=== PATIENT | male | born 1960 | race Caucasian/White ===

== ENCOUNTER 2024-07-17 18:48 | Inpatient (IN) | payer MEDICARE, SELFPAY ==
[2024-07-17] VITALS (35 sets, daily range): BP systolic 132–180; BP diastolic 81–120; PULSE 97–129; RESP 16–26; TEMP 36.7; O2SAT 92–100
--- NOTE | ~2024-07-17 | CT_ITS ---
CT abdomen pelvis wo con Ordering provider: Kimberlee Tomlin MD History: 64 years Male with . acute renal failure . Comparison: None. Technique: CT abdomen and pelvis without IV and without oral contrast. Automated exposure control and iterative reconstruction technique were employed. The dose-length product was 410.77 mGy-cm. Findings: VISUALIZED LOWER CHEST: Groundglass appearance is seen in the middle lobe with minimal changes in the medial aspect of the right lower lobe and also in the left lower lobe suggestive of pneumonia. UPPER ABDOMINAL ORGANS: Liver: Normal. Gallbladder: Cholelithiasis Spleen: Normal. Stomach/duodenum: Small sliding hiatus hernia. The Pancreas: Normal. Adrenals: Normal. Kidneys: Bilateral hydronephrotic changes with no stones in the ureters. Tiny stones seen in the righ t kidney midpole. Small Cyst is seen in the right kidney midpole posteriorly. Small cysts in the left kidney upper pole. PELVIC ORGANS: The bladder is overdistended. Stone is seen in the posterior urinary bladder measures 1 x 0.7 cm. BOWEL AND MESENTERY: Colon: Contrast is seen in the large bowel. No evidence of diverticulitis. The appendix is not demons trated. Small Bowel: Normal. No obstruction. Peritoneum/mesentery: No free air or free fluid. No mesenteric lymphadenopathy. RETROPERITONEUM: Mild atheromatous disease of the abdominal aorta. No retroperitoneal lymphadenopat hy. MUSCULOSKELETAL: Superficial soft tissues: The superficial soft tissues are normal. Bones: Age appropriate degenerative changes of the spine. Sclerotic lesion seen in the left acetabulu m. Follow-up advised. IMPRESSION: 1. Grossly distended urinary bladder with urinary bladder stone. 2. Enlarged prostate. 3. Bilateral moderate hydroureter and hydronephrotic changes. 4. Tiny stone in the right kidney midpole. Bilateral renal cysts. 5. Cholelithiasis. 6. No evidence of appendicitis, diverticulitis or intestinal obstruction. 7. Ground glass appearance suggestive of pneumonia in the middle lobe and both lower lobes. Follow-u p advised. Reviewed, dictated and finalized at location A. IMPRESSION: 1. Grossly distended urinary bladder with urinary bladder stone. 2. Enlarged prostate. 3. Bilateral moderate hydroureter and hydronephrotic changes. 4. Tiny stone in the right kidney midpole. Bilateral renal cysts. 5. Cholelithiasis. 6. No evidence of appendicitis, diverticulitis or intestinal obstruction. 7. Ground glass appearance suggestive of pneumonia in the middle lobe and both lower lobes. Follow-up advised.
--- NOTE | ~2024-07-17 | US_ITS ---
EXAMINATION: US renal BI DATE: 07/19/2024 13:56 INDICATION: Acute renal failure TECHNIQUE: Multiple ultrasound grayscale images of the kidneys were obtained. COMPARISON: CT dated 07/17/2024 FINDINGS: The right kidney measures 11.9 x 5.7 x 6.2 cm. The left kidney measures 13.7 x 6.9 x 7.0 cm. The kidn eys demonstrate normal echogenicity. There are bilateral anechoic renal cysts measuring 2.1 cm the ri ght kidney and 2.2 cm at the left kidney. There is no hydronephrosis in either kidney. No stones fátima ntified. The bladder is decompressed with a Ortega catheter in place which limits evaluation.. IMPRESSION: 1. Approximately 2 cm bilateral renal cysts. Otherwise normal kidneys with resolution of prior bilat eral hydronephrosis likely related to interval Ortega catheter placement with decompression of the pre viously distended bladder. Reviewed, dictated and finalized at location A. IMPRESSION: 1. Approximately 2 cm bilateral renal cysts. Otherwise normal kidneys with res olution of prior bilateral hydronephrosis likely related to interval Ortega cath eter placement with decompression of the previously distended bladder.
--- NOTE | ~2024-07-17 | XR_ITS ---
CHEST RADIOGRAPH CLINICAL HISTORY: lungs and heart . COMPARISON: 09/09/2018 TECHNIQUE: Single portable view of the chest. FINDINGS The cardiomediastinal silhouette is unremarkable. The lungs are clear. IMPRESSION: No focal infiltrate or effusion. Reviewed, dictated and finalized at location A.
--- OUTSIDE RECORDS SUMMARY | 2024-07-17 18:51 | XMS_ITS | Clinical Summary ---
Author Organization [facility] Address [address] [place] [address] Phone Care Team Providers Care Clinical Services Consultant Name Role Phone Unavailable Primary Care Provider Unavailabl e Medications aspirin (KONRAD CHEWABLE) 81 mg Tablet, Chewable Take 81 mg by mouth daily. Active tamsulosin (FLOMAX) 0.4 mg capsule Take 1 Capsule (0.4 mg) by mouth daily after supper. 30 Capsule 05/07/2022 3:50 PM CDT 3 Active Saccharomyces boulardii 250 mg capsule Florastor 250 mg capsule TK 1 C PO BID Active atorvastatin (LIPITOR) 40 mg tablet Take 1 Tablet (40 mg) by mouth daily. 100 Tablet 3 05/09/2022 7:23 PM CDT 3 Active metFORMIN (GLUCOPHAGE XR) 500 mg Extended Release 24 hour tablet Take 1 Tablet (500 mg) by mouth 2 times daily with meals. 200 Tablet 3 05/09/2022 7:23 PM CDT 3 Active busPIRone (BUSPAR) 5 mg tablet Take 1 Tablet (5 mg) by mouth 3 times daily. 15 Tablet 05/09/2022 7:23 PM CDT 3 Active gentamicin (GARAMYCIN) 0.1 % Cream Apply once daily to affected area. 30 Gram 3 07/24/2022 2:14 PM CDT 3 Active becaplermin (Regranex) 0.01 % Gel Apply daily to wound as directed 15 Gram 3 3 Active mupirocin (BACTROBAN) 2 % Ointment Apply enough to cover affected area topically daily. 22 Gram 1 07/13/2023 4:32 PM CDT 4 Active cefUROXime axetil (CEFTIN) 500 mg tablet Take 1 Tablet (500 mg) by mouth every 12 hours for 7 days. TAKE WITH FOOD. 14 Tablet 06/17/2024 10:31 AM CDT 5 06/25/19 25 terazosin (HYTRIN) 1 mg capsule Take 1 Capsule (1 mg) by mouth daily at bedtime for 10 days. 10 Capsule 06/24/2024 6:31 PM CDT 5 07/05/19 25 Active Problems Problem Noted Date Diagnosed Date MSSA (methicillin susceptibl e Staphylococcus aureus) infection 05/27/2022 Acute urinary retention 05/09/2022 Status post amputation of great toe 05/09/2022 Pyogenic arthritis of foot 05/06/2022 Charcot foot due to diabetes mellitus 04/30/2022 Microcytic hypochromic anemia 03/26/2019 Diabetic infection of left foot 09/10/2018 Type 2 diabetes mellitus with diabetic foot infe ction 09/10/2018 Anxiety state 10/13/2016 Resolved Problems Problem Noted Date Diagnosed Date Resolved Date Foot abscess, left 05/06/2022 Leukocytosis (leucocytosis) 05/01/2022 05/27/2022 Sepsis due to cellulitis 04/30/2022 Cellulitis of left lower extremity 03/26/2019 05/27/2022 Cellulitis of left foot 03/25/2019 04/0 05/2022 Osteomyelitis of left foot 09/10/2018 0 03/26/2019 Probable sepsis 04/30/2022 Staphylococcus aureus bacteremia 04/30/2022 Sepsis without acute organ dysfunction 04/30/2022 Pyogenic inflammation of bone 04/30/2022 Family History Medical History Relation Name Comments Diabetes Brother Relation Name Status Comments Brother Social History Tobacco Use Types Packs/Day Years Used Date Smoking Tobacco: Never Smokeless Tobacco: Never Tobacco Cessation:Counseling Given: Not Answered Alcohol Use Standard Drinks/Week Comments Yes 0 (1 standard drink = 0.6 oz pur e alcohol) Feeling Safe Answer Date Recorded Within the last year, have y ou been afraid of your partner or ex-partner? No 09/10/2018 Within the last year, have y ou been humiliated or emotionally abused in other ways by your partner or ex-partner? No Within the last year, have y ou been kicked, hit, slapped, or otherwise physically hurt by your partner or ex-partner? No 09/10/2018 Within the last year, have y ou been raped or forced to have any kind of sexual activity by your partner or ex-partner? No 09/10/2018 Social Connections Answer Date Recorded In a typical week, how many times do you talk on the phone with family, friends, or neighbors? More than three times a week 09/10/2018 How often do you get togethe r with friends or relatives? Once a week 09/10/2018 How often do you attend chur or spiritism services? More than 4 times per year 09/10/2018 Do you belong to any clubs o r organizations such as muslim groups, unions, fraternal or athletic groups, or school groups? Yes 09/10/2018 How often do you attend meet ings of the clubs or organizations you belong to? 1 to 4 times per year 09/10/2018 Are you , , di vorced, , never , or living with a partner? 09/10/2018 Financial Resource Strain Answer Date R ecorded How hard is it for you to pa y for the very basics like food, housing, medical care, and heating? Patient declined 09/10/2018 Food Insecurity Answer Date Recorded Within the past 12 months, y ou worried that your food would run out before you got the money to buy more. Patient declined Within the past 12 months, t he food you bought just didn't last and you didn't have money to get more. Patient declined Transportation Needs Answer Date Record ed In the past 12 months, has l ack of transportation kept you from medical appointments or from getting medications? No 08/23 In the past 12 months, has l ack of transportation kept you from meetings, work, or from getting things needed for daily living? No 09/10/2018 Feeling Safe Answer Date Recorded Are you in a relationship wi th someone who hurts you emotionally and/or physically? No 11/12/2022 Food Insecurity Answer Date Recorded Social/Environmental Concerns No concerns Transportation Needs Answer Date Record ed Social/Environmental Concerns No concerns Housing Stability Answer Date Recorded Social/Environmental Concerns No concerns Utility Needs Answer Date Recorded Social/Environmental Concerns No concerns Sex and Gender Information Value Date Recorded Sex Assigned at Not on file Legal Sex Male 1:54 PM CDT Gender Identity Not on file Sexual Orientation Not on file Last Filed Vital Signs Vital Sign Reading Time Taken Comments Blood Pressure 187/95 06/10/2023 2:00 PM CDT Pulse 79 06/10/2023 2:00 PM CDT Temperature 36.9 C (98.4 F) 06/10/2023 2:00 PM CDT Respiratory Rate 18 06/10/2023 2:00 PM CDT Oxygen Saturation 98% 05/27/2022 10:29 AM CDT Inhaled Oxygen Concentration - - Weight 84.6 kg (186 lb 9.6 oz) 06/10/2023 2:00 P M CDT Height 182.9 cm (6') 11/12/2022 1:00 PM CDT Body Mass Index 25.31 11/12/2022 1:00 PM CDT Plan of Treatment Health Maintenance Due Date Last Done Comments DIABETES ANNUAL FOOT EXAM 05/15/1979 DIABETES ANNUAL RETINAL EXAM 05/15/1979 DIABETES MICROALBUMIN ANNUAL SCREEN 05/15/1979 LDL CHOLESTEROL ANNUAL 05/15/1979 DTAP/TDAP/TD VACCINES (1 - Tdap) 1980 COLORECTAL SCREENING 2006 Colorectal Cancer Screening 2006 FIT-DNA Q 3 years 2006 FIT/FOBT Q 1 year 2006 Flex Sig/CT Colonography Q 5 years 2006 ZOSTER VACCINE (1 of 2) 05/15/2011 DIABETES HBA1C Q 6 MONTHS 10/31/20222022, 09/12/2018, 08/25/2016 INFLUENZA VACCINE (#1) 2023 05/09/2022 RSV VACCINE (60+ or ) (1 - 1-dose 75+ series) 2036 Procedures Procedure Name Priority Date/Time Associated Diagnosis Comments HEMOGLOBIN A1C Stat 04/30/2022 3:58 PM MOLDER MACHINE TENDER from Last 3 Months or Most Recently Relevant to Health Maintenance Results * (ABNORMAL) HEMOGLOBIN A1C (04/30/2022 3:58 PM MOLDER MACHINE TENDER) HEMOGLOBIN A1C 7.8(H) <5.7 % 04/30/2022 4:57 PM MOLDER MACHINE TENDER [facility] EST. AVG GLUCOSE, A1C 177 mg/dL 04/30/2022 4:57 PM MOLDER MACHINE TENDER [facility] Blood Venipuncture / Unknown 04/30/2022 3:58 PM MOLDER MACHINE TENDER 04/30/2022 4:14 PM MOLDER MACHINE TENDER Narrative [facility] [employer] [facility] - 04/30/2022 4:57 PM MOLDER MACHINE TENDER HGB A1C INTERPRETATION NORMAL: <5.7% PRE-DIABETES: 5.7 - 6.4% DIABETES: 6.5% OR GREATER Rashida Corbett CERTIFIED VETERINARY TECHNICIAN CHEMISTRY ORDERABLES Final Result [facility] [employer] [facility] CLIA# [id number] [address] [facility] [place] [place] [address] from Last 3 Months or Most Recently Relevant to [place] [address] [employer] CHOICE [facility] [place] [address] RX [employer] (INTERNAL) [facility] Medicare Part D Advance Directives For more information, please contact: [phone] * Full Code (Latest Code Status on File) Date Activated Date Inactivated Comments 05/03/2022 12:38 PM 05/07/2022 6:56 PM * Full Code Date Activated Date Inactivated Comments 04/30/2022 3:23 PM 05/03/2022 12:38 PM * Full Code Date Activated Date Inactivated Comments 03/26/2019 12:04 AM 04/01/2019 7:24 PM * Full Code Date Activated Date Inactivated Comments 09/10/2018 7:38 PM 09/16/2018 9:34 PM
--- OUTSIDE RECORDS SUMMARY | 2024-07-17 18:51 | XMS_ITS | Data Portability ---
[facility] Address [address] [place] [address] Care Team Providers Care Drafter Plumbing Name Role Phone NARDA GARCIA Primary Care Provider [phone] Assessment No assessment recorded. Plan of Treatment Reminders Order Date Submit Date Provider Last Modified By Organization Details Last Modified Time Details Appointments None recorded. Lab HbA1c (hemoglobin A1c), blood 2018 019 [place] In-Office Order, Internal Use Only DO Not Attach Compendium DO Not Attach Compendium, Do Not Delete/merge, [id number] 9 17:33:48 HbA1c (hemoglobin A1c), blood 2016 017 [place] [facility], [address] [place] [address], [facility], [address], [place], [address], 7 16:03:41 CMP, serum or plasma 2016 017 [place] [facility], [address] [place] [address], [address], [place], [address], 7 16:03:41 lipid panel, serum 2016 017 [facility], [address] [place] [address], [facility], [address], [place], [address], 7 15:58:02 Referral None recorded. Procedures None recorded. Surgeries None recorded. Imaging None recorded. Medication Orders Augmentin 500 mg-125 mg tablet [address] [id number], [address], [place], [place], [id number], 0 13:26:52 losartan 25 mg tablet [address] [facility][id number], [address], [place], [place], [id number], 9 14:42:57 hydroxyzine HCl 25 mg tablet [address] [facility][id number], [address], [place], [place], [id number], 9 14:42:53 metformin 500 mg tablet [address] [facility][id number], [address], [place], [place], [id number], 9 14:54:30 hydroxyzine HCl 25 mg tablet [address] [facility][id number], [address], [place], [place], [id number], 9 14:42:53 atorvastati n 80 mg tablet 2016 017 [facility]26358, [address], [place], [place], [id number], 7 15:53:11 lisinopril 5 mg tablet 2016 017 [facility] #26947, [address], [place], [place], [id number], 7 15:48:44 Lantus U-100 Insulin 100 unit/mL subcutaneou s solution 2016 017 [facility] #[id number], [address], [place], [place], [id number], 7 15:43:05 Humalog U-100 Insulin 100 unit/mL subcutaneou s solution 2016 017 [facility] #42859, [address], [place], [place], [id number], 7 15:42:54 Lexapro 10 mg tablet 2016 017 [facility] #38020, [address], [place], [place], [id number], 7 15:53:04 Patient TargetsNo targets recorded. Patient Instructions Encounter Date Encounter Id Patient Instructions Last Modified By Organization Details Last Modified Time 09/12/2016 [id number] A healthy lifestyle: care instructions [email or web address] Not available 09/12/2016 11:56:24 01/09/2017 [id number] heart-healthy diet: care instructions [email or web address] Not available 01/09/2017 17:20:32 high cholesterol : care instructions [email or web address] Not available 01/09/2017 15:58:02 Reason for Referral None Reported. Results Created Date Observation Date Name Description Value Unit Range Abnormal Flag Note LastModifiedBy Organization Detail LastModifiedTime 01/20/20 19 01/19/2019 HbA1c (hemo globi n A1c), blood HbA1c 7.4 Not Available In-Office Order Internal Use Only DO Not Attach Compendium DO Not Attach Compendium, Do Not Delete/merge, [address] 01/19/2019 14:37:44 Result Notes None recorded. Problems Name Problem SNOMED Code Status Onset Date Resolution Date Notes Provider Name and Address Organization Details Recorded Time No current problems or disability 813987286 Active Sandrita Paniagua CMA [facility], [place] - [facility] 7 10:51:02 Diabetes mellitus 65190840 Active Ramon Marcus NP Attn: Brandeein g,[address] [facility], [place], [address], [facility] 7 15:11:23 Anxiety 33252576 Active 017 YOBANY Marcus NP Attn: Tulio cunningham,[address] , [place], [address], [facility] 7 15:11:24 Problem Notes None recorded. Procedures Surgical History Date Name Laterality Status Provider Name and Address Organization Details Recorded Time Amputation completed Sandrita Paniagua CMA [facility] 09/12/2016 11:04:00 Imaging Results None recorded. Procedure Notes None recorded. Medical Equipment None Reported. Allergies No known drug allergies Medications Name Sig Start Date Stop Date Status Note LastModified by Organization Details LastModified Time True Metrix Diabetic Diabetes Blood Glucose Meter - Glucose Monitor System 01/09 completed [employer] Not Available Not Available Not Available metformin 500 mg tablet TAKE 1 TABLET BY MOUTH TWICE DAILY 01/19 completed Not Available Not Available Not Available atorvasta tin 80 mg tablet Take 1 tablet every day by oral route at bedtime. 01/09 completed Not Available Not Available Not Available Lantus U-100 Insulin 100 unit/mL subcutane ous solution Inject 18 units every day by subcutan eous route at bedtime for 30 days. 01/09 completed Not Available Not Available Not Available Humalog U-100 Insulin 100 unit/mL subcutane ous solution Inject 6 units as directed per sliding scale 01/09 completed Not Available Not Available Not Available doxycycli ne monohydra te 100 mg capsule 01/19 completed Not Available Not Available Not Available losartan 25 mg tablet TAKE 1 TABLET BY MOUTH EVERY DAY 01/19 completed Not Available Not Available Not Available aspirin 81 mg chewable tablet Chew 1 tablet every day by oral route. active Not Available Not Available No t Available hydroxyzi ne HCl 25 mg tablet TAKE 1 TABLET BY MOUTH THREE TIMES DAILY NEEDED 01/19 completed Not Available Not Available Not Available lisinopri l 5 mg tablet Take 1 tablet every day by oral route. 01/09 completed Not Available Not Available Not Available insulin syringe U-100 with needle 1 mL 30 gauge x 09/07 completed Not Available Not Available Not Available metformin ER 500 mg tablet,ex tended release 24 hr active Not Available Not Available Not Available amoxicill in 875 mg-potass ium clavulana te 125 mg tablet 03/08 completed Not Available Not Available Not Available ceftriaxo ne 2 gram solution for injection 01/09 completed Not Available Not Available Not Available amoxicill in 500 mg-potass ium clavulana te 125 mg tablet Take 1 tablet every 12 hours by oral route for 7 days. 03/08 completed Not Available Not Available Not Available escitalop jared 10 mg tablet Take 1 tablet every day by oral route at bedtime for 30 days. 01/09 completed Not Available Not Available Not Available BD Insulin Syringe Ultra-Fin e 0.5 mL 31 gauge x 07/08 completed Not Available Not Available Not Available Vitals Date Recorded Body height Body mass index (BMI) Body weight Body temperature Heart rate Oxygen saturation Oxygen saturation in Arterial blood by Pulse oximetry Respiratory rate Systolic blood pressure Diastolic blood pressure Provider Name and Address Organization Details Last Updated DateTime 9 185.42 cm 24 kg/m2 15091.5 1 g 99 [degF] 97 /min 97 % 97 % 18 /min 150 mm[Hg] 78 mm[Hg] Deepa Casillas [facility] 9 14:40:30 Date Recorded Body weight Oxygen saturation Oxygen saturation in Arterial blood by Pulse oximetry Heart rate Body temperature Systolic blood pressure Diastolic blood pressure Provider Name and Address Organization Details Last Updated DateTime 7 16813.6 9 g 96 % 96 % 102 /min 99.1 [degF] 120 mm[Hg] 80 mm[Hg] Sandrita Paniagua [facility] 7 10:55:57 Date Recorded Body weight Oxygen saturation Oxygen saturation in Arterial blood by Pulse oximetry Heart rate Body temperature Systolic blood pressure Diastolic blood pressure Provider Name and Address Organization Details Last Updated DateTime 7 83506.1 8 g 97 % 97 % 78 /min 99 [degF] 130 mm[Hg] 88 mm[Hg] Sandrita Paniagua CMA [facility] 7 16:19:20 Date Recorded Body weight Body temperature Oxygen saturation Oxygen saturation in Arterial blood by Pulse oximetry Heart rate Systolic blood pressure Diastolic blood pressure Provider Name and Address Organization Details Last Updated DateTime 7 60294.2 1 g 98.1 [degF] 97 % 97 % 88 /min 140 mm[Hg] 90 mm[Hg] Davidnida Francisco [facility] 7 15:35:03 Social History Question Answer Notes LastModified by Organizat ion Details LastModified Time Tobacco Smoking Status Never Smoker Sandrita Siva, DIXIE null, [facility] 09/12/2016 10:51:22 Do You Have An Advance Directive? No Information not available 09/12/2016 What Is Your Level Of Caffeine Consumption? None Information not available 09/12/2016 Which Illicit Or Recreational Drugs Have You Used? None Information not available 09/12/2016 Hard Of Hearing Or Deaf In One Or Both Ears? No Information not available 09/12/2016 Legally Blind In One Or Both Eyes? No Information no t available 09/12/2016 What Was The Date Of Your Most Recent Tobacco Screening? 01/19/2019 Information not available 01/19/2019 Are You Sexually Active? Yes Information not available 09/12/2016 General Stress Level High Information not available 09/12/2016 Do You Use Sunscreen Routinely? No Information not available 09/12/2016 On What Date Was Tobacco Cessation Counseling Provided? 01/19/2019 Information not available 01/19/2019 Sex: Unknown Functional Status Question Answer Note LastModified by Organization D etails LastModified Time What is your level of alcohol consumption? None Information not available 09/12/2016 What is your exercise level? None Information not available 09/12/2016 Mental Status None recorded. Family History Relationship Description Onset Age of this Age Resolved Age Notes LastModified by Organization Details LastModified Time Mother Coronary arterioscler osis thulsema Not available 2016 11:04:40 Mother Diabetes mellitus thulsema Not available 2016 11:05:03 Brother Coronary arterioscler osis thulsema Not available 2016 11:04:40 Brother Diabetes mellitus thulsema Not available 2016 11:05:03 Brother Heart disease thulsema Not available 2016 11:05:13 Sister Diabetes mellitus thulsema Not available 2016 11:05:03 Medical History Condition Response Coronary Artery Disease N Other N Atrial Fibrillation N High Blood Pressure N Depression N COPD N Blood Clots N Anxiety Disorder N Muscle, Joint, or Bone Problems N Acid Reflux (GERD) N Cancer N Stroke N High Cholesterol N Liver Disease N Headaches N Kidney or Bladder Problems N Thyroid Problems N GI Problems N Skin Problems N Anemia N Heart Attack (MD) N Diabetes Y Seizures/Epilepsy N Asthma N Allergies N Hepatitis N Heart Failure N Osteoporosis N Past Encounters Encounter ID Performer Location Encounter Start Date Encounter Closed Date Diagnosis/Indication Diagnosis SNOMED-CT Code Diagnosis ICD10 Code Diagnosis Note [id number] YOBANY Marcus NP [facility] [address] [place] [address] 09/12/2016 10:19:30 09/12/2016 12:25:40 Hyperlipidemia screening 525991081 Z13.220 Continue atorvastat in Uncontrol ed type 2 diabetes mellitus 117915060 E11.65 Continue lantus and humalog insulin AND lisinopril as directed. F/u 2 weeks Anxiety 86086233 F41.9 Start lexapro as directed. [id number] YOBANY Marcus NP [facility] [address] [place] [address] 10/03/2016 16:01:20 10/20/2016 16:03:19 Diabetes mellitus 39684857 E11.9 Start metformin as directed. Continue lantus insulin and sliding scale as directed. F/u 1 month Anxiety 23284531 F41.9 D/c lexapro. Start hydroxyzin e as directed. F/u 1 month [id number] YOBANY Marcus NP [facility] [address] [place] [address] 01/09/2017 15:28:30 01/14/2017 12:25:27 Essential hypertension 25190354 I10 D/c lisinopril (due to cough). Start losartan. F/u 1 month Hyperlipidemia 41067566 E78.5 Recheck lipid panel Anxiety 53614603 F41.9 Continue hydroxyzin e as directed. Diabetes mellitus 717277 09 E11.59 Recheck CMP and HgA1C [id number] FELISHA ZEPEDA [facility] [address] [place] [address] 01/19/2019 14:11:09 01/24/2019 08:23:21 Diabetes mellitus 42634526 E11.9 patient to f.u for yearly check up. Acute sinusitis 51364628 J01.90 take abx as prescribed . he denies any drug allergy. f.u if not improving. Health Concerns Section Related Observation LastModified by Organization Detai ls LastModified Time None Recorded Concern Status LastModified by Organization Details LastModified Time None Recorded Advance Directives Directive N: Payers Encounter Date Sequence Insurance Name Policy Number Policy Nix Covered Member ID Nix Member ID Guarantor Name 09/12/2016 1 [facility] PRIOR TO 08/23/2020 (MEDICAID REPLACEMENT - HMO) Cade Coleman [id number] Cade Coleman 10/03/2016 1 [facility] PRIOR TO 08/23/2020 (MEDICAID REPLACEMENT - HMO) Cade Coleman [id number] Cade Coleman 01/09/2017 1 [facility] PRIOR TO 08/23/2020 (MEDICAID REPLACEMENT - HMO) Cade Coleman [id number] Cade Coleman 01/19/2019 1 [facility] PRIOR TO 08/23/2020 (MEDICAID REPLACEMENT - HMO) Cade Coleman [id number] Cade Coleman Notes Date Note Type Note Provider Name and Address Organization Details Recorded Time 09/12/2016 text/html Patient presents today to establish care. He was released from [facility] on August 28, 2016. He was admitted for a right foot infection. When he arrived at the ER they informed him he was diabetic (he did not know before then) and that he had a severe infection. He had a toe amputated from his right foot by Dr. Dueñas on Thursday. He has an apt with the surgeon upcoming to have the surgical dressing removed. He has a PICC line in his right upper arm. Home health is coming to his house to administer IV antibiotics and draw labs. He denies pain. He is now on fasting and long acting insulin at home. Checking his blood sugars 3x per day. He reports he has been depressed since this hospital stay. YOBANY Marcus NP Attn: Tyler,[address] [facility], [place], [address], [facility] 09/16/2016 12:55:48 10/03/2016 text/html Patient presents today for follow-up. States that the lexapro made him feel very groggy, yet he was still anxious. He no longer is taking the medication. He would like to try something else. Reports his blood sugars have been doing well (99-117). He is checking them before each meal and at bedtime. He is doing the sliding scale as follows: Blood sugar <120- no insulin Blood sugar 120-130 4 units Blood sugar 130-140 6 units >140- 8 units Thursday he has an apt to have his PIC line removed. Home health is still coming. Patient is sticking to a diabetic diet. YOBANY Marcus NP Attn: Accounting,[address] [facility] [facility], [place], [address], [facility] 10/13/2016 15:12:04 01/09/2017 text/html Patient presents today for follow-up. He reports that his fasting blood sugars have been 90-120. He has no longer been needing the sliding scale insulin. He has also cut back on the lantus insulin. He is not taking any lantus insulin at this time. He is only taking his metformin and hydroxyzine. Reports his hydroxyzine is helping a lot. He reports the lisinopril gave him a cough and he quit taking it. He is not taking his cholesterol medication at this time, no reason given YOBANY Marcus NP Attn: Accounting,[address] [facility] [facility], [place], [address], [facility] 01/14/2017 10:19:28 01/19/2019 text/html Upper Respirator y SymptomsReported bypatient.Location:a d; chest Quality:productive cough;congested Duration:symptoms lasting over 2 weeks Context:no sick contacts; no foreign travel Associated Symptoms:no sputum production sick visit cold for one month. could not get over it and in past week blowns nose and it is yellow. FELISHA ZEPEDA Attn: Accounting,[address] [place], [address], [facility] 01/22/2019 17:54:09
--- NOTE | 2024-07-17 18:55 | ECG_ITS ---
Test Date: 2024-07-17 19:02:51 Measurements Intervals [place] Rate: 121 P: 48 [place]: 160 QRS: -11 QRSD: 82 T: 61 QT: 310 QTc: 440 Interpretive Statements SINUS TACHYCARDIA ABNORMAL RHYTHM ECG No previous ECG available for comparison Electronically Signed On 07-17-2024 20:53:35 CDT by Mic Warner M.D.
[2024-07-17 19:04] LABS: Glucose Point of Care 153 mg/dl (65-105)
[2024-07-17 19:13] LABS: Basophils Absolute Auto 0.1 K/mm3 (0.0-0.1); Basophils Percent Auto 0.2 % (0.2-1.2); Eosinophils Absolute Auto 0.1 K/mm3 (0-0.3); Eosinophils Percent Auto 0.4 % (0-4.4); Hematocrit 45.4 % (42.0-52.0); Hemoglobin 15.4 g/dL (14.0-18.0); Immature Granulocyte Absolute 0.12 K/mm3 (0.00-0.031); Immature Granulocyte Percent A 0.5 % (0-0.5); Lymphocytes Absolute Auto 4.67 K/mm3 (0.9-3.2); Lymphocytes Percent Auto 20.7 % (18.3-44.2); Mean Corpuscular HGB Conc 33.9 g/dl (32-36); Mean Corpuscular Hemoglobin 28.3 pg (26-34); Mean Corpuscular Volume 83.5 fl (80-100); Mean Platelet Volume 10.7 fl (7.4-10.4); Monocytes Absolute Auto 1.2 K/mm3 (0.1-0.6); Monocytes Percent Auto 5.1 % (2.6-8.5); Neutrophils Absolute Auto 16.4 K/mm3 (1.3-6.7); Neutrophils Percent Auto 73.1 % (45.5-73.1); Platelet Count Result 159 k/mm3 (150-375); Red Blood Count 5.44 M/mm3 (4.6-6.20); Red Cell Distribution Width 14.3 % (11.5-14.5); White Blood Count 22.5 K/mm3 (4.5-10.0)
--- NOTE | 2024-07-17 19:13 | ED_ITS ---
HPI - Nausea/Vomiting/Diarrhea General Chief complaint: Nausea/Vomiting/Diarrhea Stated complaint: vomiting Time Seen by Provider: 07/17/24 19:06 Source: patient and family () Mode of arrival: ambulatory Limitations: no limitations History of Present Illness HPI Narrative: Patient notes upon me entering the room that he is unable to produce urine sample. Having some nausea. Notes he feels shaky and has been feeling this way throughout today. He attributes it to being very anxious about being in the hospital as he states that he hates hospitals and doctors. He denies any unilateral symptoms, slurred speech, or alcohol. Patient had been having occasional difficulty urinating but then with incontinence. He had a telehealth appointment and was diagnosed with urinary tract infection for which he was prescribed antibiotics. He then had another diagnosis, possibly an issue with his prostate being swollen given his difficulties with urination for which he was prescribed additional 10 day antibiotics from urgent care. He notes he was having back pain earlier. He has been having increased burping over the past 1 month. He states he is passing flatus. He has felt a little nauseated. Denies diaphoresis or being clammy. Denies difficulty initiating his stream. No recent travel. No previous abdominal surgeries and has never seen a urologist. Oral intake has been minimal as his appetite has been poor partly due to his belching. No sick contacts. Denies fevers or chills. Denies bowel incontinence. States this has never happened before and denies any underlying gastroenterology issues. He had previously seen an internal medicine physician in [place] through [facility] but does not follow with them regularly and does not have a primary care physician. He has a history of diabetes mellitus but is not on insulin. It diabetes has caused complications including left toe amputations. Related Data Home Medications ?Medication ?Instructions ?Recorded ?Confirmed ?Last Taken ?Type No Home Medications 07/18/24 07/18/24 Unknown History Allergies Allergy/AdvReac Type Severity Reaction Status Date / Time No Known Allergies Allergy Unverified 07/18/24 01:10 [facility] Past Medical History Medical History (Updated 07/18/24 @ 15:02 by Amber Bryant MD) Nonadherence to medication Diabetic peripheral neuropathy Charcot foot due to diabetes mellitus Diabetes mellitus, type II Surgical History Surgical History (Updated 07/18/24 @ 02:40 by Shante Winchester DO) History of orthopedic surgery 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 They been for 37 years. They raised 1 daughter and 1 son. 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 He is a lifelong nonsmoker does not drink alcohol or use illicit substances. Code status: Full code Surrogate decision maker: Mary () Smoking status: Never smoker Second hand tobacco smoke exposure: No Alcohol intake: never Substance use: never Substance use type: does not use Do You Feel Safe in your Home?: Yes Lack of Transportation: No Lack of Food: Never True Current Housing: I Have Housing Concerned About Future Housing: No Difficulty Paying Gas/Electric Bills: No Difficulty Paying for Meds: No Currently Unemployed: No Education: High School Diploma/GED Difficulty w/ Childcare or Family Care: No Spiritual care concerns: No Exam 2 Narrative: GENERAL: well-nourished, in mild acute distress. HEAD: Normocephalic, atraumatic. EYES: Non injected, non icteric ENT: Nares clear, no rhinorrhea or epistaxis. Gross auditory acuity intact. Dry mucous membranes. NECK: Supple. No meningismus. CHEST: Speaking in full sentences. No respiratory distress. HEART: Regular rate and rhythm. . ABDOMEN: Soft, distended. No rigidity or guarding but with some firmness/fullness in lower quadrants (RLQ > LLQ). Not peritoneal EXTREMITIES: Normal range of motion. No lower extremity edema. SKIN: Warm, dry, no rash. NEURO: No focal deficits. Alert and oriented. Answering questions. Following commands. Normal speech without aphasia or dysarthria. Patient is very tremulous, noted in bilateral upper extremities at rest and with slight fasciculation in left thigh muscle appreciated. No tongue fasciculations. PSYCH: Normal mood and affect. Course Vital Signs Vital signs: Vital Signs Pulse Rate 108 H 07/17/24 19:15 Respiratory Rate 21 H 07/17/24 19:15 Blood Pressure 176/100 H 07/17/24 19:15 Temperature 99.7 F H 07/18/24 15:55 Pulse Rate 100 07/18/24 16:00 Respiratory Rate 14 07/18/24 15:55 Blood Pressure 105/79 07/18/24 15:55 Pulse Oximetry 100 07/18/24 15:55 Oxygen Delivery Room Air 07/18/24 03:55 MDM - Nausea/Vomiting/Diarrhea MDM Narrative Medical decision making narrative: Patient presents with a bit of nausea, abdominal distention difficulty urinating, and feeling tremulous/shaky. In the emergency department he is afebrile with vital signs notable for mild tachypnea, tachycardia, hypertension. Point of care glucose appropriate. Patient has sinus tachycardia. 1 L IV fluids ordered. Lipase mildly elevated, not to a degree to suggest pancreatitis. He has a marked leukocytosis of 22.5. Patient has a creatinine of 21.75. Previous creatinine in chart was from 6 years ago and was normal, 0.8 at that time. Thus, he is in acute renal failure. He has hyperphosphatemia. Sevelamer ordered. Bladder scan performed after patient returns from CT scan shows more than 2000 mL in the bladder. Ortega catheter will be placed. Hematuria on urinalysis. He is hyperkalemic. Calcium gluconate ordered as well as cardiac monitoring. Bicarb will be added because he is acidotic, initially as pushes x2. Poly steering also ordered. Will defer using Lasix due to a kidney function. Dextrose and insulin ordered although the insulin as 5 units given for renal dosing. High dose albuterol. Bladder stone on imaging. Abdomen had been distended at the time. Potential bilateral pneumonia on imaging. Ceftriaxone azithromycin ordered. Patient high risk of auto diuresing. He is feeling more comfortable after the Ortega insertion upon bedside reassessment. He has already put out significant urine output. Patient discussed with on-call director of product management, on-call urologist. Discussed with on-call hospitalist Dr Winchester for admission. Repeat creatinine on BMP is still very elevated although trending down. Potassium has normalized. Differential Diagnosis Differential diagnosis: Likely other (prostatitis, proctitis; UTI; urinary retention; ) Lab Data Attestation: I reviewed the patient's lab results. 07/18/24 04:18 07/18/24 10:03 Labs: Lab Results 07/17/24 07/17/24 07/17/24 Range/Units 19:01 19:05 20:09 WBC 22.5 H (4.5-10.0) K/mm3 RBC 5.44 (4.6-6.20) M/mm3 Hgb 15.4 (14.0-18.0) g/dL Hct 45.4 (42.0-52.0) % MCV 83.5 (80-100) fl MCH 28.3 (26-34) pg MCHC 33.9 (32-36) g/dl RDW 14.3 (11.5-14.5) % Plt Count 159 (150-375) k/mm3 MPV 10.7 H (7.4-10.4) fl Immature Gran % (Auto) 0.5 (0-0.5) % Neut % (Auto) 73.1 (45.5-73.1) % Lymph % (Auto) 20.7 (18.3-44.2) % [place] % (Auto) 5.1 (2.6-8.5) % Eos % (Auto) 0.4 (0-4.4) % Baso % (Auto) 0.2 (0.2-1.2) % Lymph # (Auto) 4.67 H (0.9-3.2) K/mm3 [place] # (Auto) 1.2 H (0.1-0.6) K/mm3 Eos # (Auto) 0.1 (0-0.3) K/mm3 Baso # (Auto) 0.1 (0.0-0.1) K/mm3 Abs Immat Gran (auto) 0.12 H (0.00-0.031) K/mm3 Absolute Neuts (auto) 16.4 H (1.3-6.7) K/mm3 Absolute Nucleated RBC 0.000 (0.0-0.012) K/mm3 Band Neutrophils % Not Reportable Nucleated RBC % 0.0 (0.0-0.2) % Platelet Estimate Slightly decreased (Adequate) Schistocytes None seen Sodium 136 L (137-145) mmol/L Potassium 5.8 H (3.4-5.0) mmol/L Chloride 101 (98-107) mmol/L Carbon Dioxide < 5 L (22-30) mmol/L Anion Gap (4-12) mmol/L BUN 211 H (9-20) mg/dL Creatinine 21.75 H (0.7-1.3) mg/dL Estim Creat Clear Calc Not Reportable Estimated GFR 2 L (59 - ) Glucose 134 H (65-110) mg/dL POC Capillary Glucose 153 H (65-105) mg/dl Lactic Acid 1.7 (0.7-2.0) mmol/L Calcium 7.3 L (8.4-10.2) mg/dL Phosphorus 12.3 H (2.5-4.5) mg/dL Magnesium 2.9 H (1.6-2.3) mg/dL Total Bilirubin 0.6 (0.2-1.3) mg/dL AST 29 (17-59) U/L ALT 54 H (6-50) U/L Alkaline Phosphatase 105 (38-126) U/L Total Creatine Kinase 101 (55-170) U/L Total Protein 9.0 H (6.3-8.2) g/dL Albumin 4.9 (3.5-5.1) g/dL Lipase 410 H (23-300) U/L TSH 1.690 (0.465-4.680) uIU/mL Urine Color (Yellow) Urine Appearance (Clear) Urine pH (5.0-9.0) Ur Specific [place] (1.001-1.035) Urine Protein (Negative) mg/dL Urine Glucose (UA) (Negative) mg/dL Urine Ketones (Negative) mg/dL Ur Blood (Man) (Negative) Urine Nitrate (Negative) Urine Bilirubin (Negative) Urine Urobilinogen (<2.0) mg/dL Leukocyte Esterase Rfl (Negative) YENI/UL Urine RBC (0-2) /hpf Urine WBC (0-3) /hpf Ur Squamous Epith Cells (Few) /hpf Urine Bacteria /hpf Urine Casts Urine Opiates Screen (Negative) Urine Methadone Screen (Negative) Ur Barbiturates Screen (Negative) Ur Phencyclidine Scrn (Negative) Ur Amphetamine Screen (Negative) U Benzodiazepines Scrn (Negative) Urine Cocaine Screen (Negative) U Cannabinoids Screen (Negative) Influenza A (RT-PCR) Negative (Negative) Influenza B (RT-PCR) Negative (Negative) RSV (RT-PCR) Negative (Negative) SARS-CoV-2 RNA (RT-PCR) Negative (Negative) 07/17/24 Range/Units 20:34 WBC (4.5-10.0) K/mm3 RBC (4.6-6.20) M/mm3 Hgb (14.0-18.0) g/dL Hct (42.0-52.0) % MCV (80-100) fl MCH (26-34) pg MCHC (32-36) g/dl RDW (11.5-14.5) % Plt Count (150-375) k/mm3 MPV (7.4-10.4) fl Immature Gran % (Auto) (0-0.5) % Neut % (Auto) (45.5-73.1) % Lymph % (Auto) (18.3-44.2) % [place] % (Auto) (2.6-8.5) % Eos % (Auto) (0-4.4) % Baso % (Auto) (0.2-1.2) % Lymph # (Auto) (0.9-3.2) K/mm3 [place] # (Auto) (0.1-0.6) K/mm3 Eos # (Auto) (0-0.3) K/mm3 Baso # (Auto) (0.0-0.1) K/mm3 Abs Immat Gran (auto) (0.00-0.031) K/mm3 Absolute Neuts (auto) (1.3-6.7) K/mm3 Absolute Nucleated RBC (0.0-0.012) K/mm3 Band Neutrophils % Nucleated RBC % (0.0-0.2) % Platelet Estimate (Adequate) Schistocytes Sodium (137-145) mmol/L Potassium (3.4-5.0) mmol/L Chloride (98-107) mmol/L Carbon Dioxide (22-30) mmol/L Anion Gap (4-12) mmol/L BUN (9-20) mg/dL Creatinine (0.7-1.3) mg/dL Estim Creat Clear Calc Estimated GFR (59 - ) Glucose (65-110) mg/dL POC Capillary Glucose (65-105) mg/dl Lactic Acid (0.7-2.0) mmol/L Calcium (8.4-10.2) mg/dL Phosphorus (2.5-4.5) mg/dL Magnesium (1.6-2.3) mg/dL Total Bilirubin (0.2-1.3) mg/dL AST (17-59) U/L ALT (6-50) U/L Alkaline Phosphatase (38-126) U/L Total Creatine Kinase (55-170) U/L Total Protein (6.3-8.2) g/dL Albumin (3.5-5.1) g/dL Lipase (23-300) U/L TSH (0.465-4.680) uIU/mL Urine Color Yellow (Yellow) Urine Appearance Clear (Clear) Urine pH 5.5 (5.0-9.0) Ur Specific [place] 1.014 (1.001-1.035) Urine Protein 1+ H (Negative) mg/dL Urine Glucose (UA) Negative (Negative) mg/dL Urine Ketones Trace H (Negative) mg/dL Ur Blood (Man) 3+ H (Negative) Urine Nitrate Negative (Negative) Urine Bilirubin Negative (Negative) Urine Urobilinogen 0.2 (<2.0) mg/dL Leukocyte Esterase Rfl Negative (Negative) YENI/UL Urine RBC >100 H (0-2) /hpf Urine WBC 0-5 (0-3) /hpf Ur Squamous Epith Cells None seen (Few) /hpf Urine Bacteria None seen /hpf Urine Casts 0-2 Urine Opiates Screen Negative (Negative) Urine Methadone Screen Negative (Negative) Ur Barbiturates Screen Negative (Negative) Ur Phencyclidine Scrn Negative (Negative) Ur Amphetamine Screen Negative (Negative) U Benzodiazepines Scrn Negative (Negative) Urine Cocaine Screen Negative (Negative) U Cannabinoids Screen Negative (Negative) Influenza A (RT-PCR) (Negative) Influenza B (RT-PCR) (Negative) RSV (RT-PCR) (Negative) SARS-CoV-2 RNA (RT-PCR) (Negative) ABG Data ABG results: 07/17/24 21:39 Puncture Site Right radial ABG pH 7.305 L ABG pCO2 14.2 L* ABG pO2 128.1 H ABG PO2/FiO2 Ratio 6.10 ABG HCO3 6.9 L ABG O2 Saturation 98.4 ABG O2 Content 21.1 ABG Base Excess -16.3 A-a Gradient 4.6 Oxyhemoglobin 97.8 Total Hemoglobin 15.2 O2 Delivery Device Room air O2 Liters/Min Not Reportable FiO2 21 Imaging Data Attestation: I personally reviewed and interpreted this imaging study as follows: My impression: Markedly distended urinary bladder on my independent interpretation of CT imaging Radiologist's impression: Impressions Abdomen/Pelvis CT 07/17/24 20:41 IMPRESSION: 1. Grossly distended urinary bladder with urinary bladder stone. 2. Enlarged prostate. 3. Bilateral moderate hydroureter and hydronephrotic changes. 4. Tiny stone in the right kidney midpole. Bilateral renal cysts. 5. Cholelithiasis. 6. No evidence of appendicitis, diverticulitis or intestinal obstruction. 7. Ground glass appearance suggestive of pneumonia in the middle lobe and both lower lobes. Follow-up advised. ECG Data EKG #1: Attestation: I personally reviewed and interpreted this ECG as follows: ECG completion date: 07/17/24 ECG completion time: 19:02 Interpretation: Sinus tachycardia at a rate of 121 beats per minute. ME interval 160. QRS 82. QT/QTC 310/382. Good R-wave progression across the precordial leads. No T-wave inversion. Discharge Plan Discharge Clinical Impression: Elevated lipase, Leukocytosis, Hyperphosphatemia associated with renal failure, Hematuria, Hyperkalemia, Acute urinary retention, Bladder stone, Enlarged prostate, Hydroureter, Cholelithiasis Acute renal failure Qualifiers: Acute renal failure type: unspecified Qualified Code(s): N17.9 - Acute kidney failure, unspecified Bilateral pneumonia Qualifiers: Pneumonia type: due to unspecified organism Lung location: lower lobe of lung Q ualified Code(s): J18.9 - Pneumonia, unspecified organism Patient Disposition: Still a Patient Condition: Stable
[2024-07-17 19:28] LABS: Alanine Aminotransferase 54 U/L (6-50); Albumin Level 4.9 g/dL (3.5-5.1); Alkaline Phosphatase 105 U/L (38-126); Aspartate Amino Transferase 29 U/L (17-59); Bilirubin,Total 0.6 mg/dL (0.2-1.3); Calcium 7.3 mg/dL (8.4-10.2); Carbon Dioxide < 5 mmol/L (22-30); Chloride 101 mmol/L (98-107); Glucose 134 mg/dL (65-110); Lipase 410 U/L (23-300); Potassium 5.8 mmol/L (3.4-5.0); Sodium 136 mmol/L (137-145)
[2024-07-17 19:30] LABS: Platelet Estimate Slightly Decreased (Adequate)
[2024-07-17 19:31] LABS: Schistocytes None Seen
[2024-07-17 19:35] LABS: Blood Urea Nitrogen 211 mg/dL (9-20); Estimated Glomerular Filt Rate 2
[2024-07-17 19:39] LABS: Magnesium 2.9 mg/dL (1.6-2.3)
--- OUTSIDE RECORDS SUMMARY | 2024-07-17 19:43 | XMS_ITS | Clinical Summary ---
Author Organization [facility] Address [address] [place] [address] Care Team Providers Care Hand Presser Name Role Phone Abdon Sandoval MD Primary Care Provider [phone] Source Comments [facility],non-owned Affiliates and Associated Physician Practices is amultiple site organization consisting of ambulatory clinics and hospital sitesin [place], [place], [place] and [place]. This disclosure is being madepursuant to the Care Everywhere program and may not contain all information available regarding this patient. Last updated 17.[facility] [employer] Allergies No known active allergies Medications * Be aware that medications may not be up to date on this document. Alwaysverify current medications with the patient. amoxicillin-cla vulanate (Augmentin) 875-125 MG tabletIndicatio ns:Diabetic Foot Infection Take 875 mg by mouth 2 times daily with morning and evening meal. Indications: Infection of Foot in Diabetic Patient 3 Active ciprofloxacin (Cipro) 500 MG tabletIndicatio ns:Diabetic Foot Infection Take 500 mg by mouth 2 times daily. Indications: Infection of Foot in Diabetic Patient 3 Active tamsulosin (Flomax) 0.4 MG capsuleIndicati ons:NEW ONSET URINARY RETENTION Take 0.4 mg by mouth once daily. Indications: NEW ONSET URINARY RETENTION 3 Active Aspirin 81 MG CAPSIndications :HEART HEALTH Take 81 mg by mouth once daily. Indications: HEART HEALTH 1 Active Social History Tobacco Use Types Packs/Day Years Used Date Smoking Tobacco: Never Assessed OASIS D0700: Social Isolation Answer Da te Recorded Frequency of experiencing loneliness or isolatio n Never 06/02/2022 OASIS A1250: Transportation Answer Date Recorded Lack of Transportation (Medical) No 06/02/2022 Lack of Transportation (Non-Medical) No 06/02/2022 Patient Unable or Declines to Respond No 06/02/2022 OASIS B1300: Health Literacy Answer Yakov e Recorded Frequency of needing help to read materials from doctor or pharmacy Never 06/02/2022 Sex and Gender Information Value Date Recorded Sex Assigned at Not on file Legal Sex Male 4:09 PM CDT Gender Identity Not on file Sexual Orientation Not on file Last Filed Vital Signs Vital Sign Reading Time Taken Comments Blood Pressure 120/74 06/02/2022 1:40 PM CDT Pulse 82 06/02/2022 1:40 PM CDT Temperature 36.4 C (97.6 F) 06/02/2022 1:40 PM CDT Respiratory Rate 16 06/02/2022 1:40 PM CDT Oxygen Saturation 99% 06/02/2022 1:40 PM CDT Inhaled Oxygen Concentration - - Weight 81.6 kg (180 lb) 05/09/2022 10:34 AM CDT Height - - Body Mass Index - - Plan of Treatment Health Maintenance Due Date Last Done Comments COLOGUARD (AGES 45-75) - COLON CA SCREENING 1961 COLON MONITORING 1961 COLONOSCOPY - COLON CA SCREENING 1961 CT COLONOGRAPHY - COLON CA SCREENING 1961 Colorectal Cancer Screening 1961 FIT - COLON CA SCREENING 1961 FLEX SIG - COLON CA SCREENING 1961 HIV SCREENING 1976 HEPATITIS C SCREENING 05/10/1979 DTAP/TDAP/TD VACCINES (1 - Tdap) 1980 PNEUMOCOCCAL VACCINE 50+ (1 of 1 - PCV) 05/15/2011 ZOSTER VACCINE (1 of 2) 05/15/2011 COVID-19 VACCINE (1 - season) 2023 DEPRESSION SCREENING 02/24/2024 INFLUENZA VACCINE (Season Ended) 2024 LIPID TESTING 05/08/2027 05/07/2022, 04/23, 05/05/2022, Additional history exists Respiratory Syncytial Virus (RSV) Vaccine Pt: or over 60 yrs (1 - 1-dose 75+ series) 2036 HEPATITIS B VACCINE Aged Out No longe r eligible based on patient's age to complete this topic HIB VACCINE Aged Out No longer eligi ble based on patient's age to complete this topic HPV VACCINE Aged Out No longer eligi ble based on patient's age to complete this topic MENINGOCOCCAL (Group B) VACCINE SHARED DECISION-MAKING Aged Out No longer eligible based on patient's age to complete this topic MENINGOCOCCAL GROUPS A/C/Y/W VACCINE Aged Out No longer eligible based on patient's age to complete this topic Advance Directives * Full Code (Latest Code Status on File) Date Activated Date Inactivated Comments 05/09/2022 12:12 PM To update the patient's code status, place a code status order. Do not modify or discontinue any currently active code status orders. Care Teams Hand Presser Relationship Specialty Start Date End Date Abdon Sandoval MD [address] [place] [address] PCP - General Family Medicine 05/08/22
--- OUTSIDE RECORDS SUMMARY | 2024-07-17 19:43 | XMS_ITS | Clinical Summary ---
Author Organization [facility] Address [address] [place] [address] Phone Care Team Providers Care Rehabilitation Manager Name Role Phone Unavailable Primary Care Provider [...] How often do you attend chur or lutheran services? More than 4 times per year 09/10/2018 Do you belong to any clubs o r organizations such as jain groups, unions, fraternal or athletic groups, or [...] Comments HEMOGLOBIN A1C Stat 04/30/2022 3:58 PM [employer] INST[employer]ER from Last 3 Months or Most Recently Relevant to Health Maintenance Results * (ABNORMAL) HEMOGLOBIN A1C (04/30/2022 3:58 PM [employer] INST[employer]ER) HEMOGLOBIN A1C 7.8(H) <5.7 % 04/30/2022 4:57 PM [employer] INST[employer]ER [facility] EST. AVG GLUCOSE, A1C 177 mg/dL 04/30/2022 4:57 PM [employer] INST[employer]ER [facility] Blood Venipuncture / Unknown 04/30/2022 3:58 PM [employer] INST[employer]ER 04/30/2022 4:14 PM [employer] INST[employer]ER Narrative [facility] - 04/30/2022 4:57 PM [employer] INST[employer]ER HGB A1C INTERPRETATION NORMAL: <5.7% PRE-DIABETES: 5.7 - 6.4% DIABETES: 6.5% OR GREATER Rashida Corbett WARPER CREELER CHEMISTRY ORDERABLES Final Result [facility] CLIA# [id number] [address] [facility] [place] [address] from Last 3 Months or Most Recently Relevant to [place] [address] [employer] [facility] [place] [address] RX [employer] (INTERNAL) [facility] Medicare Part D Advance Directives For more information, please contact: [phone] * Full Code (Latest Code Status on [...]
[2024-07-17 19:46] LABS: Phosphorus 12.3 mg/dL (2.5-4.5)
[2024-07-17 20:02] LABS: Creatine Kinase 101 U/L (55-170)
[2024-07-17 20:27] LABS: Lactic Acid Reflex 1.7 mmol/L (0.7-2.0)
[2024-07-17 20:46] LABS: Add Urine Microscopic? YES; Appearance Urine Clear (Clear); Bacteria Urine None Seen /hpf; Bilirubin Urine Negative (Negative); Blood Urine 3+ (Negative); Color Urine Yellow (Yellow); Glucose Urine UA Negative (Negative); Ketones Urine Trace mg/dL (Negative); Leukocyte Esterase Ur Negative LEU/UL (Negative); Nitrate Urine Negative (Negative); Non Pathogenic Casts 0-2; Protein Urine 1+ mg/dL (Negative); RBC Urine >100 /hpf (0-2); Specific Grav Ur 1.014 (1.001-1.035); Squamous Epithelial Cell Urine None Seen /hpf (Few); Urobilinogen Urine 0.2 mg/dL (<2.0); WBC Urine 0-5 /hpf (0-3); pH Urine 5.5 (5.0-9.0)
[2024-07-17 20:51] LABS: Influenza A QL RT-PCR Negative (Negative); Influenza B QL RT-PCR Negative (Negative); RSV RNA, RT-PCR Negative (Negative); SARS-CoV-2 RNA PCR Negative (Negative)
[2024-07-17 21:01] LABS: Amphetamine Screen Urine Negative (Negative); Barbiturate Screen Urine Negative (Negative); Benzodiazepines Screen Urine Negative (Negative); Cannabinoid Screen Urine Negative (Negative); Cocaine Screen Urine Negative (Negative); Methadone Screen Urine Negative (Negative); Opiate Screen Urine Negative (Negative); Phencyclidine Screen Urine Negative (Negative)
[2024-07-17] MEDS: SEVELAMER CARBONATE 800 MG TABLET PO (21:08)
[2024-07-17] MEDS: ONDANSETRON INJ 4 MG/2 ML VIAL IV PUSH (21:08)
[2024-07-17] MEDS: SODIUM CHLORIDE 0.9% IV 1,000 ML 999 ML IV CONT ×2 (21:08→23:28)
[2024-07-17] MEDS: ALBUTEROL SULFATE NEB 2.5 MG/3 ML INH 10 MG INHALATION (21:50)
[2024-07-17] MEDS: SODIUM BICARBONATE 8.4% 50 MEQ/50 ML SYRINGE IV PUSH ×2 (21:59→22:00)
[2024-07-17] MEDS: SODIUM POLYSTYRENE SULFONONATE 15 GM/60 ML BTL 30 GM PO (22:00)
[2024-07-17] MEDS: DEXTROSE 50% 25 GM/50 ML SYRINGE IV PUSH (22:00)
[2024-07-17 22:01] LABS: Alveolar/Arterial O2 Gradient 4.6 mmHg; Base Excess ABG -16.3 mEq/l (+/-2.0); Fractional Inspired Oxygen 21 %; HCO3 ABG 6.9 mEq/l (22.0-26.0); Oxygen Content ABG 21.1 %vol (16.0-22.0); Oxygen Saturation ABG 98.4 % (95.0-100.0); Oxyhemoglobin 97.8 % THb (90.0-100.0); PO2 ABG 128.1 mmHg (80.0-100.0); Total Hemoglobin 15.2 g/dL (12.0-18.0); pH ABG 7.305 (7.350-7.450)
[2024-07-17 22:04] LABS: Device ROOM AIR; Modified Allen's Test Pass; PCO2 ABG 14.2 mmHg (35.0-45.0); Site Drawn RIGHT RADIAL
[2024-07-17] MEDS: INSULIN HUMAN REGULAR (*BKC) 100 UNITS/ML IV PUSH (22:04)
[2024-07-17] MEDS: CALCIUM GLUCONATE 1,000 MG/10 ML VIAL 1000 MG IV PUSH (22:04)
[2024-07-17] MEDS: SODIUM BICARBONATE 8.4% 150 MEQ in WATER, STERILE FOR INJECTION 950 ML IV CONT (23:19)
[2024-07-17] MEDS: AZITHROMYCIN 250 MG TABLET 500 MG PO (23:20)
[2024-07-17 23:23] LABS: Glucose Point of Care 233 mg/dl (65-105)
[2024-07-17 23:55] LABS: Anion Gap 31 mmol/L (4-12); Calcium 7.8 mg/dL (8.4-10.2); Carbon Dioxide 7 mmol/L (22-30); Chloride 106 mmol/L (98-107); Glucose 244 mg/dL (65-110); Sodium 144 mmol/L (137-145)
[2024-07-17 23:57] LABS: Blood Urea Nitrogen 170 mg/dL (9-20); Estimated CRCL calculation 5 ml/min; Estimated Glomerular Filt Rate 3
[2024-07-18] VITALS (20 sets, daily range): BP systolic 105–161; BP diastolic 65–95; PULSE 85–132; RESP 14–20; TEMP 36.4–37.6; O2SAT 97–100; BMI 20.7
--- NOTE | 2024-07-18 00:29 | ADMGEN ---
This patient, Cade Coleman, was admitted to IMU Room 214-01 on 07/18/24 at 0018. Patient/family oriented to hospital policies and general routines including ID bracelet, bed and alarms, visiting hours, pain management, procedures, bathroom and other care routines, personal items, smoking policy, room service/diet, and visiting hours. Information on how to activate the Rapid Response Team has been discussed. Patient/Family are encouraged to report perceived risks to care and to ask questions if they do not understand what they are told or what they should do.
--- NOTE | 2024-07-18 01:33 | PM.IMHP ---
H&P: HPI History of Present Illness Date/Time: 07/18/24 01:33 Chief Complaint: Nauseated for 1 month Narrative: 64-year-old male with a past medical history of uncontrolled diabetes mellitus, diabetic peripheral neuropathy and previously undiagnosed BPH who presented to the ER from home via private vehicle due to intermittent nausea vomiting for 1 month. The patient's provides the majority history with patient's permission and the patient supplements history. 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 About 1 month ago he started having difficulty with urination. He stated that for about a week he could not urinate at all. After about a week of this he was able to then start dribbling urine and was having persistent episodes of incontinent throughout the course of the month. On 06/17/2024 He broke down and did a telehealth visit and was prescribed cefuroxime for 7 days. He did not have any improved in his symptoms with antibiotics so he then went to urgent care on June 24 and was told that he likely had BPH and was started on terazosin for 10 days. He did not in notice any improvement in his symptoms. Over the last several days the patient had noted acute the abdominal distension and had been having some loose stools multiple times a day for the last 3 days. He reported that his abdomen felt full but denied having any pain. He has not had any recent ill contacts. He has never had a colonoscopy or routine health screenings. He reports that the nausea has gotten bad enough that he had not had had much to drink over the last couple of days. The patient's stated the patient was reluctant to come to the hospital because he hates hospitals and doctors. The patient's had noticed the patient was having more labored respirations for the last several days. She enlisted the help of her children in convincing the patient to come in for evaluation. In the ER CT was performed which demonstrated markedly distended bladder with a bladder stone, significant BPH, moderate bilateral hydroureter and hydronephrotic changes right kidney stone and ground-glass opacities suggestive of pneumonia in the middle lobe and both lower lobes. The patient's bladder scan demonstrated 2 L of urine a Ortega catheter was placed with immediate return to 1.3 L. He reports that this time that is extremely anxious and is requesting something. He is obviously restless and not happy with being in the hospital. He is also not happy with the fact that he has been having increased diarrhea since receiving Kayexalate. The patient has had longstanding history of type 2 diabetes mellitus at the time of his diagnosis in 2018 ER he had peripheral neuropathy. 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 The patient states he does not take any diabetic medications and has not followed up with a primary care physician in many years. 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 Review of Systems Review of Systems: 12 systems were reviewed with pertinent positives and negatives per HPI. Except as documented in the HPI, all other systems were reviewed and are negative. [facility] Past Medical History Medical History (Updated 07/18/24 @ 02:56 by Shante Winchester DO) Nonadherence to medication Diabetic peripheral neuropathy Charcot foot due to diabetes mellitus Diabetes mellitus, type II Surgical History Surgical History (Updated 07/18/24 @ 02:40 by Shante Winchester DO) History of orthopedic surgery 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 They been for 37 years. They raised 1 daughter and 1 son. 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 He is a lifelong nonsmoker does not drink alcohol or use illicit substances. Code status: Full code Surrogate decision maker: Mary () Smoking status: Never smoker Second hand tobacco smoke exposure: No Alcohol intake: never Substance use: never Substance use type: does not use Do You Feel Safe in your Home?: Yes Lack of Transportation: No Lack of Food: Never True Current Housing: I Have Housing Concerned About Future Housing: No Difficulty Paying Gas/Electric Bills: No Difficulty Paying for Meds: No Currently Unemployed: No Education: High School Diploma/GED Difficulty w/ Childcare or Family Care: No Spiritual care concerns: No Meds Home Medications and Allergies Home Medications ?Medication ?Instructions ?Recorded ?Confirmed ?Type No Home Medications 07/18/24 07/18/24 History Allergies Allergy/AdvReac Type Severity Reaction Status Date / Time No Known Allergies Allergy Unverified 07/18/24 01:10 Vital Signs Vital Signs - 24 hr 07/17/24 19:15 07/17/24 19:33 07/17/24 19:41 Temperature 98.1 F 98.1 F Pulse Rate 108 H 109 H 97 Respiratory Rate 21 H 22 H 19 Blood Pressure 176/100 H 163/94 H 163/94 H Pulse Oximetry 100 100 Oxygen Delivery Room Air 07/17/24 19:55 07/17/24 20:00 07/17/24 20:15 Temperature Pulse Rate 107 H 113 H Respiratory Rate 22 H 18 Blood Pressure Pulse Oximetry 92 Oxygen Delivery 07/17/24 20:30 07/17/24 20:45 07/17/24 20:49 Temperature Pulse Rate 123 H 103 H 115 H Respiratory Rate 26 H 21 H 19 Blood Pressure 150/99 H Pulse Oximetry Oxygen Delivery 07/17/24 21:00 07/17/24 21:01 07/17/24 21:15 Temperature Pulse Rate 106 H 106 H 110 H Respiratory Rate 20 19 20 Blood Pressure 161/81 H Pulse Oximetry Oxygen Delivery 07/17/24 21:16 07/17/24 21:30 07/17/24 21:31 Temperature Pulse Rate 109 H 110 H 109 H Respiratory Rate 19 18 17 Blood Pressure 145/87 H 147/94 H Pulse Oximetry Oxygen Delivery 07/17/24 21:46 07/17/24 21:47 07/17/24 21:51 Temperature Pulse Rate 115 H 118 H Respiratory Rate 18 20 Blood Pressure 151/88 H Pulse Oximetry 100 Oxygen Delivery 07/17/24 22:00 07/17/24 22:01 07/17/24 22:15 Temperature Pulse Rate 117 H 118 H 119 H Respiratory Rate 16 20 19 Blood Pressure 180/102 H Pulse Oximetry 100 100 100 Oxygen Delivery 07/17/24 22:16 07/17/24 22:30 07/17/24 22:31 Temperature Pulse Rate 121 H 122 H 124 H Respiratory Rate 21 H 19 20 Blood Pressure 149/120 H 155/88 H Pulse Oximetry 100 100 Oxygen Delivery 07/17/24 22:45 07/17/24 22:46 07/17/24 22:58 Temperature Pulse Rate 127 H 128 H 121 H Respiratory Rate 17 19 20 Blood Pressure 155/95 H Pulse Oximetry 100 100 Oxygen Delivery 07/17/24 23:00 07/17/24 23:01 07/17/24 23:15 Temperature Pulse Rate 124 H 129 H 125 H Respiratory Rate 19 19 18 Blood Pressure 144/92 H Pulse Oximetry Oxygen Delivery 07/17/24 23:16 07/17/24 23:30 07/17/24 23:31 Temperature Pulse Rate 129 H 124 H 124 H Respiratory Rate 20 23 H 18 Blood Pressure 140/92 H 158/97 H Pulse Oximetry 100 98 Oxygen Delivery 07/17/24 23:45 07/17/24 23:46 07/18/24 00:00 Temperature Pulse Rate 123 H 121 H 122 H Respiratory Rate 19 18 18 Blood Pressure 132/94 H 156/95 H Pulse Oximetry Oxygen Delivery 07/18/24 00:01 07/18/24 00:10 07/18/24 00:20 Temperature 97.9 F 97.6 F Pulse Rate 123 H 127 H 132 H Respiratory Rate 19 20 20 Blood Pressure 156/95 H 161/95 H Pulse Oximetry 100 97 Oxygen Delivery Exam Narrative: Weight 71.5 kg BMI 20.8 Const: Other: Mildly ill-appearing, well-developed well-nourished, appears stated age HENMT: Other: Mucous membranes are dry, no oral pharyngeal erythema, a few missing teeth in the upper jaw Eyes: Other: No conjunctival pallor, no scleral icterus Neck: Other: No JVD, no lymphadenopathy Resp: Other: Clear to auscultation bilaterally, no tachypnea Cardio: Other: Sinus tachycardia, 2 bilat the radial and pedal pulses, no murmur, no JVD GI: Other: Hyperactive bowel sounds, nontender, slightly distended : Other: Ortega catheter in place with pink-tinged urine present Skin: Other: No jaundice, no pallor, no petechiae H&P: Results Labs Labs: Short CBC 07/17/24 Range/Units 19:05 WBC 22.5 H (4.5-10.0) K/mm3 Hgb 15.4 (14.0-18.0) g/dL Hct 45.4 (42.0-52.0) % Plt Count 159 (150-375) k/mm3 BMP 07/17/24 07/17/24 19:05 23:34 Sodium 136 L 144 Potassium 5.8 H 4.0 Chloride 101 106 Carbon Dioxide < 5 L 7 L BUN 211 H 170 H D Creatinine 21.75 H 14.49 H Glucose 134 H 244 H Calcium 7.3 L 7.8 L Cardiac Enzymes 07/17/24 Range/Units 19:05 Total Creatine Kinase 101 (55-170) U/L Liver Function 07/17/24 Range/Units 19:05 Total Bilirubin 0.6 (0.2-1.3) mg/dL AST 29 (17-59) U/L ALT 54 H (6-50) U/L Alkaline Phosphatase 105 (38-126) U/L Albumin 4.9 (3.5-5.1) g/dL Urine 07/17/24 Range/Units 20:34 Urine Color Yellow (Yellow) Urine Appearance Clear (Clear) Urine pH 5.5 (5.0-9.0) Ur Specific [place] 1.014 (1.001-1.035) Urine Protein 1+ H (Negative) mg/dL Urine Glucose (UA) Negative (Negative) mg/dL Assessment and Plan Assessment and plan (1) Acute renal failure: Qualifiers: Acute renal failure type: unspecified Qualified Code(s): N17.9 - Acute kidney failure, unspecified Code(s): N17.9 - Acute kidney failure, unspecified Status: Acute (2) BPH with urinary obstruction: Code(s): N40.1 - Benign prostatic hyperplasia with lower urinary tract symptoms; N13.8 - Other obstructive and reflux uropathy Status: Acute (3) Bilateral pneumonia: Qualifiers: Pneumonia type: due to unspecified organism Lung location: lower lobe of lung Qualified Code(s): J18.9 - Pneumonia, unspecified organism Code(s): J18.9 - Pneumonia, unspecified organism Status: Acute (4) Postobstructive diuresis: Code(s): R35.89 - Other polyuria Status: Acute (5) Metabolic acidosis with respiratory alkalosis: Code(s): E87.20 - Acidosis, unspecified; E87.3 - Alkalosis Status: Acute (6) Hyperphosphatemia associated with renal failure: Code(s): E83.39 - Other disorders of phosphorus metabolism; N19 - Unspecified kidney failure Status: Acute (7) Hyperkalemia: Code(s): E87.5 - Hyperkalemia Status: Acute (8) Bladder stone: Code(s): N21.0 - Calculus in bladder Status: Acute (9) Diarrhea: Qualifiers: Diarrhea type: unspecified type Qualified Code(s): R19.7 - Diarrhea, unspecified Code(s): R19.7 - Diarrhea, unspecified Status: Acute (10) Nonadherence to medication: Code(s): Z91.148 - Patient's other noncompliance with medication regimen for other reason Status: Acute (11) Anxiety about treatment: Code(s): R45.89 - Other symptoms and signs involving emotional state Status: Acute Plan The patient has what is likely acute on chronic bladder outlet obstruction due to BPH (plus or minus obstruction with bladder stone). His obstruction has resulted in what is likely acute on chronic kidney injury. Ortega catheter was placed in the ER. Since arriving to the IMU the patient has already had an additional 3.4 L of urine out be a sides the 1.3 L after initial catheter placement. The patient received 2 L fluid bolus in the ER but continues to have marked sinus tachycardia with heart rates between 120-140. He denies any chest pain or cardiac symptoms. The patient does still appear to be intervascular volume depleted an additional 1 L of normal saline bolus has been provided. The patient did have metabolic acidosis with compensatory respiratory alkalosis with pH of 7.3. Since catheter placement repeat electrolyte panel have been obtained and is demonstrated improvement in the patient's potassium down into normal range and significant improvement in his BUN and creatinine with BUN going from 04/05 down to 170 and creatinine decreasing from 20/ down to 14. Will continue patient on bicarb drip at 150 mL an hour. Patient is already demonstrating evidence of postobstructive diuresis. Will need to monitor urine output and make up for the patient's baseline level of dehydration that he has already had with his preceding symptoms of nausea vomiting and keep up with his excessive urine output. Will monitor strict I&O's. Will check urine electrolytes, renal ultrasound and hepatitis panel. Urology and Nephrology have been consulted. Will await further recommendations. Given that the patient's potassium is only marginally elevated I suspect patient likely has some underlying chronic kidney disease associated with his diabetes and has had subsequent acute decompensation with his obstructive uropathy. Unfortunately given the patient has not followed up with a physician in several years this cannot be confirmed. He was hospitalized 2 years ago at [facility]. It may be possible to obtain records to see patient's baseline renal function from that facility if needed. Patient has also been having diarrhea for the last week or so that appears darker black in color. Will check occult blood although GI bleed is less likely given the patient's normal hemoglobin. Will also check C diff given recent antibiotic exposure. Unfortunately diarrhea has been exacerbated by the use of Kayexalate. Likely patient's potassium has now normalized and hopefully will not have to give patient Kayexalate again. CT does not demonstrate any evidence of acute colonic process. However CT did demonstrate bilateral lower lobe infiltrates ground-glass in appearance. The patient is having tachypnea which is most likely due to his respiratory compensation for his metabolic acidosis but he could also have developed pneumonia which may be associated with aspiration given his recent vomiting. He does have marked leukocytosis but no fever. Leukocytosis could be due to pneumonia verses what is causing the patient's diarrhea verses acute look moist reaction. Will place on empiric antibiotic therapy with Rocephin and Flagyl and azithromycin. Will check urine Legionella and pneumococcal antigen. With possible infection, leukocytosis, tachycardia the patient does fit sepsis criteria but lactic acid is normal. Will check procalcitonin. Patient did receive 30 mL/kilos fluid bolus in the ER and an additional L has been administered. Blood cultures have been obtained and are pending. Patient has baseline poorly controlled diabetes with complications in noncompliance with management including not checking his glucoses at home. Will check A1c in a.m.. Will place patient on moderate dose sliding scale insulin with Accu-Cheks a.c. HS. Will change patient's diet to consistent carbohydrate. Patient is quite anxious and restless. Portion of his tachycardia could be due to excess anxiety. Patient is requesting medications for anxiety. I did give order for Xanax but the patient is quite worked up in tremulous when I went back to update him on his repeat labs. He was literally shaking and seemed to be having a acute episode of panic. Subsequently 0.5 mg of IV Ativan was ordered. Importance of adherence with medical therapy and follow-up with providers was discussed in detail with the patient and his at bedside. Repeat renal function panel, magnesium, and CBC have been ordered for a.m. 70 minute spent critical care activities. Due to a high probability of clinically significant, life threatening deterioration, the patient required my highest level of preparedness to intervene emergently and I personally spent this critical care time directly and personally managing the patient. This critical care time included obtaining a history; examining the patient; pulse oximetry; ordering and review of studies; arranging urgent treatment with development of a management plan; evaluation of patient's response to treatment; frequent reassessment; and discussions with other providers. It was exclusive of separately billable procedures and treating other patients and teaching time. Please see Assessment and Plan section and the rest of the note for further information on patient assessment and treatment. Quality VTE Prophylaxis VTE prophylaxis: pharmacologic ordered (Heparin 5000 units subQ q.12 hours) Hospitalist [facility] Advance Care Plan I have confirmed that the patient's Advanced Care Plan is present, code status is documented, or surrogate decision maker is listed in patient medical record.: Yes Medication Reconciliation I have utilized all available resources to obtain, update and review the patients current medications (includes all prescriptions, OTC, herbals, cannabis, and nutritional supplements).: Yes
[2024-07-18] MEDS: SODIUM CHLORIDE 0.9% IV 1,000 ML 999 ML IV CONT (02:40)
[2024-07-18 03:14] LABS: IFOB Positive Control Positive; Immunochemical Fecal Occult Bl Negative (N)
[2024-07-18 03:45] LABS: Toxigenic C. Diff NEGATIVE (NEGATIVE)
[2024-07-18] MEDS: metroNIDAZOLE 500 MG/ISO 100ML 500 MG/100 ML BAG 100 MG IVPB ×3 (04:03→19:05)
[2024-07-18] MEDS: LORazepam INJ (*CRX) 2 MG/ML VIAL 0.5 MG IV PUSH (04:06)
[2024-07-18 04:41] LABS: Basophils Percent Auto 0.1 % (0.2-1.2); Eosinophils Percent Auto 0.1 % (0-4.4); Hematocrit 42.9 % (42.0-52.0); Hemoglobin 15.2 g/dL (14.0-18.0); Immature Granulocyte Absolute 0.08 K/mm3 (0.00-0.031); Immature Granulocyte Percent A 0.6 % (0-0.5); Lymphocytes Absolute Auto 2.89 K/mm3 (0.9-3.2); Lymphocytes Percent Auto 20.5 % (18.3-44.2); Mean Corpuscular HGB Conc 35.4 g/dl (32-36); Mean Corpuscular Hemoglobin 28.4 pg (26-34); Mean Corpuscular Volume 80.2 fl (80-100); Mean Platelet Volume 11.1 fl (7.4-10.4); Monocytes Absolute Auto 0.8 K/mm3 (0.1-0.6); Neutrophils Absolute Auto 10.2 K/mm3 (1.3-6.7); Neutrophils Percent Auto 72.7 % (45.5-73.1); Platelet Count Result 170 k/mm3 (150-375); Red Blood Count 5.35 M/mm3 (4.6-6.20); Red Cell Distribution Width 14.4 % (11.5-14.5); White Blood Count 14.1 K/mm3 (4.5-10.0)
[2024-07-18 04:54] LABS: Hemoglobin A1C 8.4 % (<5.7)
[2024-07-18 04:57] LABS: Albumin Level 4.5 g/dL (3.5-5.1); Anion Gap 21 mmol/L (4-12); Blood Urea Nitrogen 119 mg/dL (9-20); Calcium 7.1 mg/dL (8.4-10.2); Carbon Dioxide 13 mmol/L (22-30); Chloride 114 mmol/L (98-107); Estimated CRCL calculation 8 ml/min; Estimated Glomerular Filt Rate 6; Glucose 149 mg/dL (65-110); Magnesium 1.9 mg/dL (1.6-2.3); Phosphorus 4.2 mg/dL (2.5-4.5); Potassium 3.6 mmol/L (3.4-5.0); Sodium 148 mmol/L (137-145)
[2024-07-18 05:27] LABS: Hepatitis B Surface Antigen Negative (Negative)
[2024-07-18 05:33] LABS: HAV RESULT Negative (Negative); Hepatitis B Core IgM Result Negative (Negative)
[2024-07-18 05:44] LABS: Hepatitis C Virus Antibody Negative (Negative)
[2024-07-18] MEDS: ONDANSETRON INJ 4 MG/2 ML VIAL IV PUSH ×2 (06:58→19:20)
[2024-07-18 08:42] LABS: Glucose Point of Care 176 mg/dl (65-105)
[2024-07-18] MEDS: LOPERAMIDE HCL 2 MG CAPSULE 4 MG PO (09:28)
[2024-07-18] MEDS: TAMSULOSIN HCL 0.4 MG CAPSULE PO (09:29)
[2024-07-18] MEDS: SODIUM CHLORIDE 0.9% IV 1,000 ML 500 ML IV CONT ×2 (09:29→13:21)
[2024-07-18] MEDS: SODIUM BICARBONATE 8.4% 150 MEQ in WATER, STERILE FOR INJECTION 950 ML IV CONT ×2 (09:30→18:45)
--- NOTE | 2024-07-18 09:37 | P.CONUR_ITS ---
Assessment and Plan Assessment and plan (1) BPH with urinary obstruction: Code(s): N40.1 - Benign prostatic hyperplasia with lower urinary tract symptoms; N13.8 - Other obstructive and reflux uropathy Status: Acute Assessment and Plan: he will need further outpatient work up. Would not check PSA at this time as it would be artificially elevated. (2) Hydroureter: Code(s): N13.4 - Hydroureter Status: Acute Assessment and Plan: the hydronephrosis and hydroureter should improve with drainage of the bladder. If creatinine is not improving, follow up US may be needed (3) Bladder stone: Code(s): N21.0 - Calculus in bladder Status: Acute Assessment and Plan: The bladder stone is secondary to the bladder outlet obstruction. It is a minor issue and can be managed when the prostate is managed in the future (4) Acute urinary retention: Code(s): R33.8 - Other retention of urine Status: Acute Assessment and Plan: The bladder was very distended. We discussed there is likely to be dysfunction and poor bladder functioning which would preclude successful voiding trial. He should keep the Ortega to gravity drainage until the renal function has normalized. Once the kidney function is normal, a voiding trial could be performed. I left Mr. Coleman know there is a high probability of needing a catheter replaced or of needing to learn clean intermittent catheterization. Urology Consult Note HPI Date Seen: 07/18/24 Requesting Physician: Shante Winchester DO Primary Care Provider: HOME SCHOOL LIAISON OFFICER PHYSICIAN Consult Narrative Narrative: Cade Coleman is a 64 year old male with progressive issues voiding from the past 3 days. He presented to the emergency room with renal failure. CT scan showed a distended bladder with bilateral hydronephrosis. Ortega catheter was placed. He states he had one episode of retention about 2 years ago after surgery. He was able to return to voiding normally after that episode. 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 They been for 37 years. They raised 1 daughter and 1 son. 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 He is a lifelong nonsmoker does not drink alcohol or use illicit substances. Code status: Full code Surrogate decision maker: Mary () Smoking status: Never smoker Second hand tobacco smoke exposure: No Alcohol intake: never Substance use: never Substance use type: does not use Do You Feel Safe in your Home?: Yes Lack of Transportation: No Lack of Food: Never True Current Housing: I Have Housing Concerned About Future Housing: No Difficulty Paying Gas/Electric Bills: No Difficulty Paying for Meds: No Currently Unemployed: No Education: High School Diploma/GED Difficulty w/ Childcare or Family Care: No Spiritual care concerns: No Meds Home Medications and Allergies Home Medications ?Medication ?Instructions ?Recorded ?Confirmed ?Type No Home Medications 07/18/24 07/18/24 History Allergies Allergy/AdvReac Type Severity Reaction Status Date / Time No Known Allergies Allergy Unverified 07/18/24 01:10 Vital Signs Vital Signs - 24 hr 07/17/24 19:15 07/17/24 19:33 07/17/24 19:41 Temperature 36.7 C 36.7 C Pulse Rate 108 H 109 H 97 Respiratory Rate 21 H 22 H 19 Blood Pressure 176/100 H 163/94 H 163/94 H Pulse Oximetry 100 100 Oxygen Delivery Room Air 07/17/24 19:55 07/17/24 20:00 07/17/24 20:15 Temperature Pulse Rate 107 H 113 H Respiratory Rate 22 H 18 Blood Pressure Pulse Oximetry 92 Oxygen Delivery 07/17/24 20:30 07/17/24 20:45 07/17/24 20:49 Temperature Pulse Rate 123 H 103 H 115 H Respiratory Rate 26 H 21 H 19 Blood Pressure 150/99 H Pulse Oximetry Oxygen Delivery 07/17/24 21:00 07/17/24 21:01 07/17/24 21:15 Temperature Pulse Rate 106 H 106 H 110 H Respiratory Rate 20 19 20 Blood Pressure 161/81 H Pulse Oximetry Oxygen Delivery 07/17/24 21:16 07/17/24 21:30 07/17/24 21:31 Temperature Pulse Rate 109 H 110 H 109 H Respiratory Rate 19 18 17 Blood Pressure 145/87 H 147/94 H Pulse Oximetry Oxygen Delivery 07/17/24 21:46 07/17/24 21:47 07/17/24 21:51 Temperature Pulse Rate 115 H 118 H Respiratory Rate 18 20 Blood Pressure 151/88 H Pulse Oximetry 100 Oxygen Delivery 07/17/24 22:00 07/17/24 22:01 07/17/24 22:15 Temperature Pulse Rate 117 H 118 H 119 H Respiratory Rate 16 20 19 Blood Pressure 180/102 H Pulse Oximetry 100 100 100 Oxygen Delivery 07/17/24 22:16 07/17/24 22:30 07/17/24 22:31 Temperature Pulse Rate 121 H 122 H 124 H Respiratory Rate 21 H 19 20 Blood Pressure 149/120 H 155/88 H Pulse Oximetry 100 100 Oxygen Delivery 07/17/24 22:45 07/17/24 22:46 07/17/24 22:58 Temperature Pulse Rate 127 H 128 H 121 H Respiratory Rate 17 19 20 Blood Pressure 155/95 H Pulse Oximetry 100 100 Oxygen Delivery 07/17/24 23:00 07/17/24 23:01 07/17/24 23:15 Temperature Pulse Rate 124 H 129 H 125 H Respiratory Rate 19 19 18 Blood Pressure 144/92 H Pulse Oximetry Oxygen Delivery 07/17/24 23:16 07/17/24 23:30 07/17/24 23:31 Temperature Pulse Rate 129 H 124 H 124 H Respiratory Rate 20 23 H 18 Blood Pressure 140/92 H 158/97 H Pulse Oximetry 100 98 Oxygen Delivery 07/17/24 23:45 07/17/24 23:46 07/18/24 00:00 Temperature Pulse Rate 123 H 121 H 122 H Respiratory Rate 19 18 18 Blood Pressure 132/94 H 156/95 H Pulse Oximetry Oxygen Delivery 07/18/24 00:01 07/18/24 00:10 07/18/24 00:20 Temperature 36.6 C 36.4 C Pulse Rate 123 H 127 H 132 H Respiratory Rate 19 20 20 Blood Pressure 156/95 H 161/95 H Pulse Oximetry 100 97 Oxygen Delivery 07/18/24 00:26 07/18/24 00:27 07/18/24 02:00 Temperature Pulse Rate 131 H 132 H 124 H Respiratory Rate 20 Blood Pressure Pulse Oximetry 97 Oxygen Delivery Room Air 07/18/24 03:47 07/18/24 03:55 07/18/24 04:00 Temperature 36.6 C Pulse Rate 108 H 108 H 111 H Respiratory Rate 17 17 Blood Pressure 154/65 H Pulse Oximetry 100 100 Oxygen Delivery Room Air 07/18/24 06:00 07/18/24 08:00 Temperature 36.7 C Pulse Rate 111 H 111 H Respiratory Rate 20 Blood Pressure 137/81 Pulse Oximetry 100 Oxygen Delivery Exam 2 Const: General: cooperative and healthy appearing HENMT: Head: normal to inspection Urinary Catheter: Urinary Catheter: patent and draining Skin: General skin exam: normal color Neuro: General: oriented to person, oriented to place and oriented to time Results Labs 07/18/24 04:18 07/18/24 04:18 Labs: Short CBC 07/17/24 07/18/24 Range/Units 19:05 04:18 WBC 22.5 H 14.1 H (4.5-10.0) K/mm3 Hgb 15.4 15.2 (14.0-18.0) g/dL Hct 45.4 42.9 (42.0-52.0) % Plt Count 159 170 (150-375) k/mm3 BMP 07/17/24 07/17/24 07/18/24 19:05 23:34 04:18 Sodium 136 L 144 148 H Potassium 5.8 H 4.0 3.6 Chloride 101 106 114 H Carbon Dioxide < 5 L 7 L 13 L BUN 211 H 170 H D 119 H D Creatinine 21.75 H 14.49 H 8.53 H Glucose 134 H 244 H 149 H Calcium 7.3 L 7.8 L 7.1 L Cardiac Enzymes 07/17/24 Range/Units 19:05 Total Creatine Kinase 101 (55-170) U/L Liver Function 07/17/24 07/18/24 Range/Units 19:05 04:18 Total Bilirubin 0.6 (0.2-1.3) mg/dL AST 29 (17-59) U/L ALT 54 H (6-50) U/L Alkaline Phosphatase 105 (38-126) U/L Albumin 4.9 4.5 (3.5-5.1) g/dL Urine 07/17/ Range/Units 20:34 Urine Color Yellow (Yellow) Urine Appearance Clear (Clear) Urine pH 5.5 (5.0-9.0) Ur Specific [place] 1.014 (1.001-1.035) Urine Protein 1+ H (Negative) mg/dL Urine Glucose (UA) Negative (Negative) mg/dL Imaging My impression: bilateral hydronephrosis is present. There is a very enlarged bladder with a stone; consistent with urine retention
[2024-07-18 10:30] LABS: Albumin Level 4.5 g/dL (3.5-5.1); Anion Gap 21 mmol/L (4-12); Blood Urea Nitrogen 75 mg/dL (9-20); Calcium 6.9 mg/dL (8.4-10.2); Carbon Dioxide 15 mmol/L (22-30); Chloride 111 mmol/L (98-107); Estimated CRCL calculation 15 ml/min; Estimated Glomerular Filt Rate 12; Glucose 239 mg/dL (65-110); Phosphorus 3.6 mg/dL (2.5-4.5); Potassium 3.4 mmol/L (3.4-5.0); Sodium 147 mmol/L (137-145)
--- NOTE | 2024-07-18 10:31 | P.CONNP_ITS ---
Assessment and Plan Assessment and plan (1) Acute kidney injury: Code(s): N17.9 - Acute kidney failure, unspecified Status: Acute Assessment and Plan: * as noted by admission labs * baseline creatinine not entirely clear... * no recent labs available * creatinine was 1.06mg/dl in April 2022 ([facility] labs) * creatinine in 2019 (by [facility] labs) was normal * slow improvement noted with ríos catheter placement * currently having post-obstructive diuresis * repeat renal ultrasound to ensure improvement in hydronephrosis (seen on admission CT scan) * follow trend of repeat labs and UOP (2) BPH with urinary obstruction: Code(s): N40.1 - Benign prostatic hyperplasia with lower urinary tract symptoms; N13.8 - Other obstructive and reflux uropathy Status: Acute Assessment and Plan: * as noted by admission CT scan: * grossly distended urinary bladder with urinary bladder stone * enlarged prostate * bilateral moderate hydroureter and hydronephrotic changes * confirmed by bladder scan in ER * s/p ríos catheter placement * significant UOP noted consistent with postobstructive diuresis * Urology recommendations noted (3) Hyperkalemia: Code(s): E87.5 - Hyperkalemia Status: Acute Assessment and Plan: * resolved * due to #1 and associated obstruction * s/p medical management * bicarb fluids likely helping as well * follow trend of repeat K+ levels (4) Metabolic acidosis: Code(s): E87.20 - Acidosis, unspecified Status: Acute Assessment and Plan: * due to #1 * attempting to compensate with bicarb gtt/fluids * follow trend of CO2 levels (5) Bilateral pneumonia: Qualifiers: Lung location: lower lobe of lung Pneumonia type: due to unspecified organism Qualified Code(s): J18.9 - Pneumonia, unspecified organism Code(s): J18.9 - Pneumonia, unspecified organism Status: Acute Assessment and Plan: * as noted by admission CT scan: * ground glass appearance suggestive of pneumonia in the middle lobe and both lower lobes * follow culture data * follow respiratory statuis * on antibiotics (6) Elevated blood pressure reading: Code(s): R03.0 - Elevated blood-pressure reading, without diagnosis of hypertension Status: Acute Assessment and Plan: * suspect underlying hypertension that has not been formally diagnosed * however, his anxiety issues may be playing a role * follow trend of hemodynamics (7) Anxiety: Code(s): F41.9 - Anxiety disorder, unspecified Status: Chronic Assessment and Plan: * known history * daphne HUGHES (8) Diabetes: Code(s): E11.9 - Type 2 diabetes mellitus without complications Status: Chronic Assessment and Plan: * was not monitoring prior to admission * A1c elevated at 8.4 * follow accu-cheks * glycemic control per hospitalist Long and extensive discussion (> 20 minutes) with the patient and his at bedside regarding his severe acute kidney injury/acute renal failure secondary to obstructive uropathy and the intervention/therapy to date to hopefully get his kidney function back to normal. As it is unclear how long his obstruction and renal dysfunction were present, it is possible that his renal function/creatinine may not completely normalize and he may have some left- over chronic kidney disease (assuming he did not have some degree of renal insufficiency prior to this) -- they both appeared to voice understanding. I will continue to follow the patient with you while he remains hospitalized and make further recommendations as deemed necessary. Thank you for allowing me to participate in the care of this patient. L History of Present Illness Reason for Consult Consult date: 07/18/24 Reason for consult: acute renal failure Chief Complaint Chief complaint: Acute renal failure; HyperK; Bladder stone History of Present Illness Narrative: The patient is a 64-year-old male with a past medical history as outlined below who presented to [facility] Emergency Room with complaints of intermittent nausea and vomiting for last month if not longer. The patient apparently has not seen a physician in many years although he keeps his regular scheduled appointments with his quality measurement specialist given his known history of diabetic neuropathy. He states that about a month ago if not longer he started having difficulty with urination. This seem to continued to progress until he noted in the last week that he was unable to urinate at all. Despite all conservative attempts to try and urinate all he was able to achieve with some dribbling an on and off urinary incontinence. Given the ongoing progression of the symptoms, he did a telehealth visit with a physician and was prescribed antibiotics on the assumption that he had a urinary tract infection. His symptoms not improve with the antibiotics so that he eventually went to an urgent care center where he was told that he likely had BPH and was prescribed terazosin. However, this medication did not really improve his symptoms either. Over last few days he has noticed increasing abdominal distension and discomfort as well. This seemed to make his nausea worse and he has not been eating or drinking very well in the last few days as well. Eventually, at the behest of his , he eventually came to the ER for further assessment of all of these symptoms. Workup and evaluation emergency room demonstrated the patient be hemodynamically stable if not mildly hypertensive in association with tachycardia but afebrile. Routine blood test demonstrated significant/ severe acute kidney injury/acute renal failure with a BUN of 211 and a creatinine of 21 in association with mild hyperkalemia and a significant metabolic acidosis. His CBC demonstrated elevated white blood cell count but normal hemoglobin and platelet count. He subsequently underwent a CT scan of the abdomen pelvis which demonstrated a markedly distended bladder with a bladder stone, moderate bilateral hydroureter and hydronephrotic changes, right kidney stone, and ground-glass opacity suggestive of pneumonia in the middle lobe and bilateral lower lobes. Subsequent bladder scan demonstrated almost 2 L of urine in his bladder as well. A Ríos catheter was placed and he had immediate return of almost 1.3 L and continued to make a significant amount of urine in the ER and overnight as well. He received medical management for his hyperkalemia and he was subsequently admitted to the hospital for further evaluation therapy Since his admission to the hospital, his renal function has been slowly improving by serial labs with his most recent labs showing his creatinine down to 4.76 mg/dL with improvement in his metabolic acidosis with the use of bicarb fluids and normalization of his potassium level. Renal consultation was requested due to his acute kidney injury/acute renal failure. I do not have any recent labs to compare to in terms of what his baseline renal function normally runs other than labs done at [facility] in 2022 that was normal and labs done in 2019 here in the [facility] system that was normal as well. Given the concern that he has diabetes that has not been controlled, he may have some degree of renal insufficiency/ chronic kidney disease at baseline that he is unaware of. He has already been seen by Urology with regard to his obstructive uropathy with recommendations noted but the tentative plan is to continue Ríos decompression and close monitoring of his renal/ kidney function with the hope that his renal function will normalize although given that he has had evidence of obstructive uropathy for at least about a month if not longer, there is a possibility that his renal function will not normalized he may have some leftover renal insufficiency from this insult to his kidneys. Currently at the time my evaluation, he appears to be in no acute distress. Review of Systems 2 Review of Systems: As per HPI. 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 They been for 37 years. They raised 1 daughter and 1 son. 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 He is a lifelong nonsmoker does not drink alcohol or use illicit substances. Code status: Full code Surrogate decision maker: Mary () Smoking status: Never smoker Second hand tobacco smoke exposure: No Alcohol intake: never Substance use: never Substance use type: does not use Do You Feel Safe in your Home?: Yes Lack of Transportation: No Lack of Food: Never True Current Housing: I Have Housing Concerned About Future Housing: No Difficulty Paying Gas/Electric Bills: No Difficulty Paying for Meds: No Currently Unemployed: No Education: High School Diploma/GED Difficulty w/ Childcare or Family Care: No Spiritual care concerns: No Meds Home Medications and Allergies Home Medications ?Medication ?Instructions ?Recorded ?Confirmed ?Type No Home Medications 07/18/24 07/18/24 History Allergies Allergy/AdvReac Type Severity Reaction Status Date / Time No Known Allergies Allergy Unverified 07/18/24 01:10 Vital Signs Vital Signs Temp Pulse Resp BP Pulse Ox O2 Del Method 07/18/24 10:00 98.5 F 91 18 160/78 H 100 07/18/24 08:00 98.1 F 111 H 20 137/81 100 07/18/24 06:00 111 H 07/18/24 04:00 111 H 07/18/24 03:55 108 H 17 100 Room Air 07/18/24 03:47 97.8 F 108 H 17 154/65 H 100 07/18/24 02:00 124 H 07/18/24 00:27 132 H 20 97 Room Air 07/18/24 00:26 131 H 07/18/24 00:20 97.6 F 132 H 20 161/95 H 97 07/18/24 00:10 97.9 F 127 H 20 156/95 H 100 07/18/24 00:01 123 H 19 07/18/24 00:00 122 H 18 156/95 H 07/17/24 23:46 121 H 18 132/94 H 07/17/24 23:45 123 H 19 07/17/24 23:31 124 H 18 158/97 H 98 07/17/24 23:30 124 H 23 H 100 07/17/24 23:16 129 H 20 140/92 H 07/17/24 23:15 125 H 18 07/17/24 23:01 129 H 19 144/92 H 07/17/24 23:00 124 H 19 07/17/24 22:58 121 H 20 07/17/24 22:46 128 H 19 155/95 H 100 07/17/24 22:45 127 H 17 100 07/17/24 22:31 124 H 20 155/88 H 100 07/17/24 22:30 122 H 19 07/17/24 22:16 121 H 21 H 149/120 H 100 07/17/24 22:15 119 H 19 100 07/17/24 22:01 118 H 20 180/102 H 100 07/17/24 22:00 117 H 16 100 07/17/24 21:51 118 H 20 07/17/24 21:47 115 H 18 100 07/17/24 21:46 151/88 H 07/17/24 21:31 109 H 17 147/94 H 07/17/24 21:30 110 H 18 07/17/24 21:16 109 H 19 145/87 H 07/17/24 21:15 110 H 20 07/17/24 21:01 106 H 19 161/81 H 07/17/24 21:00 106 H 20 07/17/24 20:49 115 H 19 150/99 H 07/17/24 20:45 103 H 21 H 07/17/24 20:30 123 H 26 H 07/17/24 20:15 113 H 18 07/17/24 20:00 107 H 22 H 07/17/24 19:55 92 07/17/24 19:41 98.1 F 97 19 163/94 H 100 07/17/24 19:33 98.1 F 109 H 22 H 163/94 H 100 Room Air 07/17/24 19:15 108 H 21 H 176/100 H Exam 2 Narrative: GENERAL APPEARANCE: well developed well nourished female in no acute distress HEENT: normocephalic, atraumatic, normal conjunctiva and sclera, nares patient NECK: no lymphadenopathy, thyromegaly, or JVD MOUTH: normal lips, teeth, and gums CARDIOVASCULAR: RRR, normal S1 and S2, no rub RESPIRATORY: clear to auscultation bilaterally ABDOMEN: soft, nontender, nondistended, positive bowel sounds present EXTREMITIES: no evidence of cyanosis, clubbing, or edema NEUROLOGICAL: alert and oriented x 3; CN II - XII intact bilaterally; no focal deficits noted Results Lab Results 07/18/24 04:18 07/18/24 10:03 Lab results: Most recent lab results ABG pH 7.305 (7.350-7.450) L 07/17/24 21:39 ABG pCO2 14.2 mmHg (35.0-45.0) L* 07/17/24 21:39 ABG pO2 128.1 mmHg (80.0-100.0) H 07/17/24 21:39 ABG HCO3 6.9 mEq/l (22.0-26.0) L 07/17/24 21:39 ABG O2 Saturation 98.4 % (95.0-100.0) 07/17/24 21:39 Calcium 6.9 mg/dL (8.4-10.2) L 07/18/24 10:03 Phosphorus 3.6 mg/dL (2.5-4.5) 07/18/24 10:03 Magnesium 1.9 mg/dL (1.6-2.3) 07/18/24 04:18
[2024-07-18 11:40] LABS: Glucose Point of Care 193 mg/dl (65-105)
[2024-07-18] MEDS: SIMETHICONE 80 MG TAB.CHEW PO (13:22)
--- NOTE | 2024-07-18 16:37 | PM.IMPN ---
Progress Note: A&P Assessment and Plan (1) Acute renal failure: Qualifiers: Acute renal failure type: unspecified Qualified Code(s): N17.9 - Acute kidney failure, unspecified Code(s): N17.9 - Acute kidney failure, unspecified Status: Acute (2) BPH with urinary obstruction: Code(s): N40.1 - Benign prostatic hyperplasia with lower urinary tract symptoms; N13.8 - Other obstructive and reflux uropathy Status: Acute (3) Bilateral pneumonia: Qualifiers: Lung location: lower lobe of lung Pneumonia type: due to unspecified organism Qualified Code(s): J18.9 - Pneumonia, unspecified organism Code(s): J18.9 - Pneumonia, unspecified organism Status: Acute (4) Postobstructive diuresis: Code(s): R35.89 - Other polyuria Status: Acute (5) Metabolic acidosis with respiratory alkalosis: Code(s): E87.20 - Acidosis, unspecified; E87.3 - Alkalosis Status: Acute (6) Hyperphosphatemia associated with renal failure: Code(s): E83.39 - Other disorders of phosphorus metabolism; N19 - Unspecified kidney failure Status: Acute (7) Hyperkalemia: Code(s): E87.5 - Hyperkalemia Status: Acute (8) Bladder stone: Code(s): N21.0 - Calculus in bladder Status: Acute (9) Diarrhea: Qualifiers: Diarrhea type: unspecified type Qualified Code(s): R19.7 - Diarrhea, unspecified Code(s): R19.7 - Diarrhea, unspecified Status: Acute (10) Nonadherence to medication: Code(s): Z91.148 - Patient's other noncompliance with medication regimen for other reason Status: Acute (11) Anxiety about treatment: Code(s): R45.89 - Other symptoms and signs involving emotional state Status: Acute Plan The patient has what is likely acute on chronic bladder outlet obstruction due to BPH (plus or minus obstruction with bladder stone). His obstruction has resulted in what is likely acute on chronic kidney injury. Ortega catheter was placed in the ER. Since arriving to the IMU the patient has already had an additional 3.4 L of urine out be a sides the 1.3 L after initial catheter placement. The patient received 2 L fluid bolus in the ER but continues to have marked sinus tachycardia with heart rates between 120-140. He denies any chest pain or cardiac symptoms. The patient does still appear to be intervascular volume depleted an additional 1 L of normal saline bolus has been provided. The patient did have metabolic acidosis with compensatory respiratory alkalosis with pH of 7.3. Since catheter placement repeat electrolyte panel have been obtained and is demonstrated improvement in the patient's potassium down into normal range and significant improvement in his BUN and creatinine with BUN going from 04/05 down to 170 and creatinine decreasing from 20/ down to 14. Will continue patient on bicarb drip at 150 mL an hour. Patient is already demonstrating evidence of postobstructive diuresis. Will need to monitor urine output and make up for the patient's baseline level of dehydration that he has already had with his preceding symptoms of nausea vomiting and keep up with his excessive urine output. Will monitor strict I&O's. Will check urine electrolytes, renal ultrasound and hepatitis panel. Urology and Nephrology have been consulted. Will await further recommendations. Given that the patient's potassium is only marginally elevated I suspect patient likely has some underlying chronic kidney disease associated with his diabetes and has had subsequent acute decompensation with his obstructive uropathy. Unfortunately given the patient has not followed up with a physician in several years this cannot be confirmed. He was hospitalized 2 years ago at [facility]. It may be possible to obtain records to see patient's baseline renal function from that facility if needed. Patient has also been having diarrhea for the last week or so that appears darker black in color. Will check occult blood although GI bleed is less likely given the patient's normal hemoglobin. Will also check C diff given recent antibiotic exposure. Unfortunately diarrhea has been exacerbated by the use of Kayexalate. Likely patient's potassium has now normalized and hopefully will not have to give patient Kayexalate again. CT does not demonstrate any evidence of acute colonic process. However CT did demonstrate bilateral lower lobe infiltrates ground-glass in appearance. The patient is having tachypnea which is most likely due to his respiratory compensation for his metabolic acidosis but he could also have developed pneumonia which may be associated with aspiration given his recent vomiting. He does have marked leukocytosis but no fever. Leukocytosis could be due to pneumonia verses what is causing the patient's diarrhea verses acute look moist reaction. Will place on empiric antibiotic therapy with Rocephin and Flagyl and azithromycin. Will check urine Legionella and pneumococcal antigen. With possible infection, leukocytosis, tachycardia the patient does fit sepsis criteria but lactic acid is normal. Will check procalcitonin. Patient did receive 30 mL/kilos fluid bolus in the ER and an additional L has been administered. Blood cultures have been obtained and are pending. Patient has baseline poorly controlled diabetes with complications in noncompliance with management including not checking his glucoses at home. Will check A1c in a.m.. Will place patient on moderate dose sliding scale insulin with Accu-Cheks a.c. HS. Will change patient's diet to consistent carbohydrate. Patient is quite anxious and restless. Portion of his tachycardia could be due to excess anxiety. Patient is requesting medications for anxiety. I did give order for Xanax but the patient is quite worked up in tremulous when I went back to update him on his repeat labs. He was literally shaking and seemed to be having a acute episode of panic. Subsequently 0.5 mg of IV Ativan was ordered. patient is 64 y/o presented with urinary retention most likely 2/2 enlarge prostate and bladder stone causing obstructive and reflux uropathy resulting in HOLLIS with elevated upon arrival BUN/CR 211/21 and CO2 of 7 in metabolic acidosis, Ortega was placed in the ER and patient has been able to urinate patient is been hydrated and sodium bicarb is given and his BUN/Cr and CO2 have improved to 75/4.76 and 15 respectivley, patient is seen by vault attendant and urologist further recommendation to follow, will continue to monitor. Subjective Date/time seen: 07/18/24 16:37 Interval history: Nauseated for 1 month H&P-Narrative: 64-year-old male with a past medical history of uncontrolled diabetes mellitus, diabetic peripheral neuropathy and previously undiagnosed BPH who presented to the ER from home via private vehicle due to intermittent nausea vomiting for 1 month. The patient's provides the majority history with patient's permission and the patient supplements history. 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 About 1 month ago he started having difficulty with urination. He stated that for about a week he could not urinate at all. After about a week of this he was able to then start dribbling urine and was having persistent episodes of incontinent throughout the course of the month. On 06/17/2024 He broke down and did a telehealth visit and was prescribed cefuroxime for 7 days. He did not have any improved in his symptoms with antibiotics so he then went to urgent care on June 24 and was told that he likely had BPH and was started on terazosin for 10 days. He did not in notice any improvement in his symptoms. Over the last several days the patient had noted acute the abdominal distension and had been having some loose stools multiple times a day for the last 3 days. He reported that his abdomen felt full but denied having any pain. He has not had any recent ill contacts. He has never had a colonoscopy or routine health screenings. He reports that the nausea has gotten bad enough that he had not had had much to drink over the last couple of days. The patient's stated the patient was reluctant to come to the hospital because he hates hospitals and doctors. The patient's had noticed the patient was having more labored respirations for the last several days. She enlisted the help of her children in convincing the patient to come in for evaluation. In the ER CT was performed which demonstrated markedly distended bladder with a bladder stone, significant BPH, moderate bilateral hydroureter and hydronephrotic changes right kidney stone and ground-glass opacities suggestive of pneumonia in the middle lobe and both lower lobes. The patient's bladder scan demonstrated 2 L of urine a Ortega catheter was placed with immediate return to 1.3 L. He reports that this time that is extremely anxious and is requesting something. He is obviously restless and not happy with being in the hospital. He is also not happy with the fact that he has been having increased diarrhea since receiving Kayexalate. The patient has had longstanding history of type 2 diabetes mellitus at the time of his diagnosis in 2018 ER he had peripheral neuropathy. 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 The patient states he does not take any diabetic medications and has not followed up with a primary care physician in many years. He still follows with his electronic masking system operator on a regular basis. patient is 64 y/o presented with urinary retention most likely 2/2 enlarge prostate and bladder stone causing obstructive and reflux uropathy resulting in HOLLIS with elevated upon arrival BUN/CR 211/21 and CO2 of 7 in metabolic acidosis, Ortega was placed in the ER and patient has been able to urinate patient is been hydrated and sodium bicarb is given and his BUN/Cr and CO2 have improved to 75/4.76 and 15 respectivley, patient is seen by vault attendant and urologist further recommendation to follow, will continue to monitor. Review of Systems Review of Systems: 12 systems were reviewed with pertinent positives and negatives per HPI. Except as documented in the HPI, all other systems were reviewed and are negative. Exam Narrative: Patient is comfortable, NAD HEENT: eyes are clear and none icteric LUNGS:CTA HEART: RR S1S2 ABD: BS+, Soft and nontender Lower extremities: no edema SKIN: nonjaundiced Neuro: grossly intact. Objective Data Vital Signs Vital Signs: Vital Signs - 24 hr 07/17/24 19:15 07/17/24 19:33 07/17/24 19:41 Temperature 36.7 C 36.7 C Pulse Rate 108 H 109 H 97 Respiratory Rate 21 H 22 H 19 Blood Pressure 176/100 H 163/94 H 163/94 H Pulse Oximetry 100 100 Oxygen Delivery Room Air 07/17/24 19:55 07/17/24 20:00 07/17/24 20:15 Temperature Pulse Rate 107 H 113 H Respiratory Rate 22 H 18 Blood Pressure Pulse Oximetry 92 Oxygen Delivery 07/17/24 20:30 07/17/24 20:45 07/17/24 20:49 Temperature Pulse Rate 123 H 103 H 115 H Respiratory Rate 26 H 21 H 19 Blood Pressure 150/99 H Pulse Oximetry Oxygen Delivery 07/17/24 21:00 07/17/24 21:01 07/17/24 21:15 Temperature Pulse Rate 106 H 106 H 110 H Respiratory Rate 20 19 20 Blood Pressure 161/81 H Pulse Oximetry Oxygen Delivery 07/17/24 21:16 07/17/24 21:30 07/17/24 21:31 Temperature Pulse Rate 109 H 110 H 109 H Respiratory Rate 19 18 17 Blood Pressure 145/87 H 147/94 H Pulse Oximetry Oxygen Delivery 07/17/24 21:46 07/17/24 21:47 07/17/24 21:51 Temperature Pulse Rate 115 H 118 H Respiratory Rate 18 20 Blood Pressure 151/88 H Pulse Oximetry 100 Oxygen Delivery 07/17/24 22:00 07/17/24 22:01 07/17/24 22:15 Temperature Pulse Rate 117 H 118 H 119 H Respiratory Rate 16 20 19 Blood Pressure 180/102 H Pulse Oximetry 100 100 100 Oxygen Delivery 07/17/24 22:16 07/17/24 22:30 07/17/24 22:31 Temperature Pulse Rate 121 H 122 H 124 H Respiratory Rate 21 H 19 20 Blood Pressure 149/120 H 155/88 H Pulse Oximetry 100 100 Oxygen Delivery 07/17/24 22:45 07/17/24 22:46 07/17/24 22:58 Temperature Pulse Rate 127 H 128 H 121 H Respiratory Rate 17 19 20 Blood Pressure 155/95 H Pulse Oximetry 100 100 Oxygen Delivery 07/17/24 23:00 07/17/24 23:01 07/17/24 23:15 Temperature Pulse Rate 124 H 129 H 125 H Respiratory Rate 19 19 18 Blood Pressure 144/92 H Pulse Oximetry Oxygen Delivery 07/17/24 23:16 07/17/24 23:30 07/17/24 23:31 Temperature Pulse Rate 129 H 124 H 124 H Respiratory Rate 20 23 H 18 Blood Pressure 140/92 H 158/97 H Pulse Oximetry 100 98 Oxygen Delivery 07/17/24 23:45 07/17/24 23:46 07/18/24 00:00 Temperature Pulse Rate 123 H 121 H 122 H Respiratory Rate 19 18 18 Blood Pressure 132/94 H 156/95 H Pulse Oximetry Oxygen Delivery 07/18/24 00:01 07/18/24 00:10 07/18/24 00:20 Temperature 36.6 C 36.4 C Pulse Rate 123 H 127 H 132 H Respiratory Rate 19 20 20 Blood Pressure 156/95 H 161/95 H Pulse Oximetry 100 97 Oxygen Delivery 07/18/24 00:26 07/18/24 00:27 07/18/24 02:00 Temperature Pulse Rate 131 H 132 H 124 H Respiratory Rate 20 Blood Pressure Pulse Oximetry 97 Oxygen Delivery Room Air 07/18/24 03:47 07/18/24 03:55 07/18/24 04:00 Temperature 36.6 C Pulse Rate 108 H 108 H 111 H Respiratory Rate 17 17 Blood Pressure 154/65 H Pulse Oximetry 100 100 Oxygen Delivery Room Air 07/18/24 06:00 07/18/24 08:00 07/18/24 12:00 Temperature 36.7 C 36.9 C Pulse Rate 111 H 111 H 91 Respiratory Rate 20 18 Blood Pressure 137/81 160/78 H Pulse Oximetry 100 100 Oxygen Delivery 07/18/24 15:55 Temperature 37.6 C H Pulse Rate 100 Respiratory Rate 14 Blood Pressure 105/79 Pulse Oximetry 100 Oxygen Delivery Intake/Output Intake/Output: Intake & Output 07/15/24 07/16/24 07/17/24 07/18/24 23:59 23:59 23:59 23:59 Intake Total 1050 5888.3 Output Total 4700 4950 Balance -3650 938.3 Meds/Results Medications: Active Medications Generic Name Dose Route Start Last Admin Trade Name Freq PRN Reason Stop Dose Admin Acetaminophen 650 mg 07/17/24 23:20 Acetaminophen 325 Mg Tablet PO Q4H PRN Mild Pain (1-3) or Fever Alprazolam 0.25 mg 07/18/24 01:50 Alprazolam (*Crx) 0.25 Mg Tablet PO TID PRN Anxiety Dextrose 12.5 gm 07/18/24 02:51 Dextrose 50% 25 Gm/50 Ml Syringe IV PUSH PRN PRN Hypoglycemia Protocol Glucagon 1 mg 07/18/24 02:51 Glucagon For Inj 1 Mg Vial IM PRN PRN Hypoglycemia Protocol Glucose 15 gm 07/18/24 02:51 Glucose Oral Gel 15 Gm Of Glucse In 37.5 Gm Tube PO PRN PRN Hypoglycemia Protocol Heparin Sodium (Porcine) 5,000 units 07/18/24 09:00 07/18/24 10:24 Heparin Sodium 5,000 Units/Ml Vial SUB-Q Not Given Q12HR DAPHNE Sodium Bicarbonate 150 meq/ 1,100 mls @ 150 mls/hr 07/17/24 22:55 07/18/24 09:30 Sterile Water IV CONT 150 mls/hr .Q7H20M DAPHNE Administration Dextrose 1,000 mls @ 100 mls/hr 07/18/24 02:51 Dextrose 5% 1,000 Ml IVPB PRN PRN Hypoglycemia Protocol Metronidazole 500 mg in 100 mls @ 100 mls/hr 07/18/24 04:00 07/18/24 13:22 Flagyl 500 Mg/Iso Soln 100 Ml IVPB 100 mls/hr Q6HR DAPHNE Administration Ceftriaxone Sodium 1 gm in 50 mls @ 100 mls/hr 07/18/24 22:00 Rocephin 1 Gm/Ns 50 Ml IVPB Q24H [facility] Azithromycin 500 mg in 250 mls @ 250 mls/hr 07/18/24 23:00 Zithromax IVPB Q24H [facility] Insulin Aspart 3 - 6 units 07/18/24 08:00 07/18/24 13:21 Insulin Aspart (*Bkc) 100 Units/Ml SUB-Q Not Given TIDWM [facility] Protocol Insulin Aspart 1 - 3 units 07/18/24 21:00 Insulin Aspart (*Bkc) 100 Units/Ml SUB-Q HS [facility] Protocol Loperamide HCl 2 mg 07/18/24 04:23 Loperamide Hcl 2 Mg Capsule PO PRN PRN Diarrhea Ondansetron HCl 4 mg 07/17/24 23:20 07/18/24 06:58 Ondansetron Inj 4 Mg/2 Ml Vial IV PUSH 4 mg Q4H PRN Administration Nausea Simethicone 80 mg 07/18/24 13:00 07/18/24 13:22 Simethicone 80 Mg Tab.Chew PO 80 mg QID DAPHNE Administration Tamsulosin HCl 0.4 mg 07/18/24 09:00 07/18/24 09:29 Tamsulosin Hcl 0.4 Mg Capsule PO 0.4 mg QAM DAPHNE Administration Radiology Results: ITS Impressions Abdomen/Pelvis CT 07/17/24 20:41 IMPRESSION: 1. Grossly distended urinary bladder with urinary bladder stone. 2. Enlarged prostate. 3. Bilateral moderate hydroureter and hydronephrotic changes. 4. Tiny stone in the right kidney midpole. Bilateral renal cysts. 5. Cholelithiasis. 6. No evidence of appendicitis, diverticulitis or intestinal obstruction. 7. Ground glass appearance suggestive of pneumonia in the middle lobe and both lower lobes. Follow-up advised. Chest X-Ray 07/18/24 06:27 IMPRESSION: No focal infiltrate or effusion. Labs Labs: Laboratory Results - last 24 hr 07/17/24 07/17/24 07/17/24 19:01 19:05 20:09 WBC 22.5 H RBC 5.44 Hgb 15.4 Hct 45.4 MCV 83.5 MCH 28.3 MCHC 33.9 RDW 14.3 Plt Count 159 MPV 10.7 H Immature Gran % (Auto) 0.5 Neut % (Auto) 73.1 Lymph % (Auto) 20.7 [place] % (Auto) 5.1 Eos % (Auto) 0.4 Baso % (Auto) 0.2 Lymph # (Auto) 4.67 H [place] # (Auto) 1.2 H Eos # (Auto) 0.1 Baso # (Auto) 0.1 Abs Immat Gran (auto) 0.12 H Absolute Neuts (auto) 16.4 H Absolute Nucleated RBC 0.000 Band Neutrophils % Not Reportable Nucleated RBC % 0.0 Platelet Estimate Slightly decreased Schistocytes None seen Puncture Site ABG pH ABG pCO2 ABG pO2 ABG PO2/FiO2 Ratio ABG HCO3 ABG O2 Saturation ABG O2 Content ABG Base Excess A-a Gradient Oxyhemoglobin Total Hemoglobin O2 Delivery Device O2 Liters/Min FiO2 Sodium 136 L Potassium 5.8 H Chloride 101 Carbon Dioxide < 5 L Anion Gap BUN 211 H Creatinine 21.75 H Estim Creat Clear Calc Not Reportable Estimated GFR 2 L Glucose 134 H POC Capillary Glucose 153 H Hemoglobin A1c Lactic Acid 1.7 Calcium 7.3 L Phosphorus 12.3 H Magnesium 2.9 H Total Bilirubin 0.6 AST 29 ALT 54 H Alkaline Phosphatase 105 Total Creatine Kinase 101 Total Protein 9.0 H Albumin 4.9 Lipase 410 H TSH 1.690 Urine Color Urine Appearance Urine pH Ur Specific [place] Urine Protein Urine Glucose (UA) Urine Ketones Ur Blood (Man) Urine Nitrate Urine Bilirubin Urine Urobilinogen Leukocyte Esterase Rfl Urine RBC Urine WBC Ur Squamous Epith Cells Urine Bacteria Urine Casts Stl Occult Blood (IFOB) Urine Opiates Screen Urine Methadone Screen Ur Barbiturates Screen Ur Phencyclidine Scrn Ur Amphetamine Screen U Benzodiazepines Scrn Urine Cocaine Screen U Cannabinoids Screen C. difficile (PCR) Hepatitis A IgM Ab Hep Bs Antigen Hep B Core IgM Ab Hepatitis C Ab Screen Influenza A (RT-PCR) Negative Influenza B (RT-PCR) Negative RSV (RT-PCR) Negative SARS-CoV-2 RNA (RT-PCR) Negative 07/17/24 07/17/24 07/17/24 20:34 21:39 23:21 WBC RBC Hgb Hct MCV MCH MCHC RDW Plt Count MPV Immature Gran % (Auto) Neut % (Auto) Lymph % (Auto) [place] % (Auto) Eos % (Auto) Baso % (Auto) Lymph # (Auto) [place] # (Auto) Eos # (Auto) Baso # (Auto) Abs Immat Gran (auto) Absolute Neuts (auto) Absolute Nucleated RBC Band Neutrophils % Nucleated RBC % Platelet Estimate Schistocytes Puncture Site Right radial ABG pH 7.305 L ABG pCO2 14.2 L* ABG pO2 128.1 H ABG PO2/FiO2 Ratio 6.10 ABG HCO3 6.9 L ABG O2 Saturation 98.4 ABG O2 Content 21.1 ABG Base Excess -16.3 A-a Gradient 4.6 Oxyhemoglobin 97.8 Total Hemoglobin 15.2 O2 Delivery Device Room air O2 Liters/Min Not Reportable FiO2 21 Sodium Potassium Chloride Carbon Dioxide Anion Gap BUN Creatinine Estim Creat Clear Calc Estimated GFR Glucose POC Capillary Glucose 233 H Hemoglobin A1c Lactic Acid Calcium Phosphorus Magnesium Total Bilirubin AST ALT Alkaline Phosphatase Total Creatine Kinase Total Protein Albumin Lipase TSH Urine Color Yellow Urine Appearance Clear Urine pH 5.5 Ur Specific [place] 1.014 Urine Protein 1+ H Urine Glucose (UA) Negative Urine Ketones Trace H Ur Blood (Man) 3+ H Urine Nitrate Negative Urine Bilirubin Negative Urine Urobilinogen 0.2 Leukocyte Esterase Rfl Negative Urine RBC >100 H Urine WBC 0-5 Ur Squamous Epith Cells None seen Urine Bacteria None seen Urine Casts 0-2 Stl Occult Blood (IFOB) Urine Opiates Screen Negative Urine Methadone Screen Negative Ur Barbiturates Screen Negative Ur Phencyclidine Scrn Negative Ur Amphetamine Screen Negative U Benzodiazepines Scrn Negative Urine Cocaine Screen Negative U Cannabinoids Screen Negative C. difficile (PCR) Hepatitis A IgM Ab Hep Bs Antigen Hep B Core IgM Ab Hepatitis C Ab Screen Influenza A (RT-PCR) Influenza B (RT-PCR) RSV (RT-PCR) SARS-CoV-2 RNA (RT-PCR) 07/17/24 07/18/24 07/18/24 23:34 02:43 04:18 WBC 14.1 H RBC 5.35 Hgb 15.2 Hct 42.9 MCV 80.2 MCH 28.4 MCHC 35.4 RDW 14.4 Plt Count 170 MPV 11.1 H Immature Gran % (Auto) 0.6 H Neut % (Auto) 72.7 Lymph % (Auto) 20.5 [place] % (Auto) 6.0 Eos % (Auto) 0.1 Baso % (Auto) 0.1 L Lymph # (Auto) 2.89 [place] # (Auto) 0.8 H Eos # (Auto) 0.0 Baso # (Auto) 0.0 Abs Immat Gran (auto) 0.08 H Absolute Neuts (auto) 10.2 H Absolute Nucleated RBC 0.000 Band Neutrophils % Nucleated RBC % 0.0 Platelet Estimate Schistocytes Puncture Site ABG pH ABG pCO2 ABG pO2 ABG PO2/FiO2 Ratio ABG HCO3 ABG O2 Saturation ABG O2 Content ABG Base Excess A-a Gradient Oxyhemoglobin Total Hemoglobin O2 Delivery Device O2 Liters/Min FiO2 Sodium 144 148 H Potassium 4.0 3.6 Chloride 106 114 H Carbon Dioxide 7 L 13 L Anion Gap 31 H 21 H BUN 170 H D 119 H D Creatinine 14.49 H 8.53 H Estim Creat Clear Calc 5 8 Estimated GFR 3 L 6 L Glucose 244 H 149 H POC Capillary Glucose Hemoglobin A1c 8.4 H Lactic Acid Calcium 7.8 L 7.1 L Phosphorus 4.2 Magnesium 1.9 Total Bilirubin AST ALT Alkaline Phosphatase Total Creatine Kinase Total Protein Albumin 4.5 Lipase TSH Urine Color Urine Appearance Urine pH Ur Specific [place] Urine Protein Urine Glucose (UA) Urine Ketones Ur Blood (Man) Urine Nitrate Urine Bilirubin Urine Urobilinogen Leukocyte Esterase Rfl Urine RBC Urine WBC Ur Squamous Epith Cells Urine Bacteria Urine Casts Stl Occult Blood (IFOB) Negative Urine Opiates Screen Urine Methadone Screen Ur Barbiturates Screen Ur Phencyclidine Scrn Ur Amphetamine Screen U Benzodiazepines Scrn Urine Cocaine Screen U Cannabinoids Screen C. difficile (PCR) Negative Hepatitis A IgM Ab Negative Hep Bs Antigen Negative Hep B Core IgM Ab Negative Hepatitis C Ab Screen Negative Influenza A (RT-PCR) Influenza B (RT-PCR) RSV (RT-PCR) SARS-CoV-2 RNA (RT-PCR) 07/18/24 07/18/24 07/18/24 08:15 10:03 11:36 WBC RBC Hgb Hct MCV MCH MCHC RDW Plt Count MPV Immature Gran % (Auto) Neut % (Auto) Lymph % (Auto) [place] % (Auto) Eos % (Auto) Baso % (Auto) Lymph # (Auto) [place] # (Auto) Eos # (Auto) Baso # (Auto) Abs Immat Gran (auto) Absolute Neuts (auto) Absolute Nucleated RBC Band Neutrophils % Nucleated RBC % Platelet Estimate Schistocytes Puncture Site ABG pH ABG pCO2 ABG pO2 ABG PO2/FiO2 Ratio ABG HCO3 ABG O2 Saturation ABG O2 Content ABG Base Excess A-a Gradient Oxyhemoglobin Total Hemoglobin O2 Delivery Device O2 Liters/Min FiO2 Sodium 147 H Potassium 3.4 Chloride 111 H Carbon Dioxide 15 L Anion Gap 21 H BUN 75 H D Creatinine 4.76 H Estim Creat Clear Calc 15 Estimated GFR 12 L Glucose 239 H POC Capillary Glucose 176 H 193 H Hemoglobin A1c Lactic Acid Calcium 6.9 L Phosphorus 3.6 Magnesium Total Bilirubin AST ALT Alkaline Phosphatase Total Creatine Kinase Total Protein Albumin 4.5 Lipase TSH Urine Color Urine Appearance Urine pH Ur Specific [place] Urine Protein Urine Glucose (UA) Urine Ketones Ur Blood (Man) Urine Nitrate Urine Bilirubin Urine Urobilinogen Leukocyte Esterase Rfl Urine RBC Urine WBC Ur Squamous Epith Cells Urine Bacteria Urine Casts Stl Occult Blood (IFOB) Urine Opiates Screen Urine Methadone Screen Ur Barbiturates Screen Ur Phencyclidine Scrn Ur Amphetamine Screen U Benzodiazepines Scrn Urine Cocaine Screen U Cannabinoids Screen C. difficile (PCR) Hepatitis A IgM Ab Hep Bs Antigen Hep B Core IgM Ab Hepatitis C Ab Screen Influenza A (RT-PCR) Influenza B (RT-PCR) RSV (RT-PCR) SARS-CoV-2 RNA (RT-PCR) Quality VTE Prophylaxis VTE prophylaxis: pharmacologic ordered (Heparin 5000 units subQ q.12 hours)
[2024-07-18 16:49] LABS: Glucose Point of Care 177 mg/dl (65-105)
[2024-07-18 18:54] LABS: Albumin Level 3.8 g/dL (3.5-5.1); Anion Gap 11 mmol/L (4-12); Blood Urea Nitrogen 38 mg/dL (9-20); Calcium 6.1 mg/dL (8.4-10.2); Carbon Dioxide 21 mmol/L (22-30); Chloride 111 mmol/L (98-107); Estimated CRCL calculation 34 ml/min; Estimated Glomerular Filt Rate 33; Glucose 190 mg/dL (65-110); Phosphorus 2.2 mg/dL (2.5-4.5); Potassium 2.8 mmol/L (3.4-5.0); Sodium 143 mmol/L (137-145)
[2024-07-18] MEDS: POTASSIUM CHLORIDE 20 MEQ ER TABLET 40 MEQ PO (20:34)
[2024-07-18] MEDS: SODIUM CHLORIDE 0.9% IV 1,000 ML 75 ML IV CONT (20:34)
[2024-07-18] MEDS: POTASSIUM CHLORIDE 20 MEQ ER TABLET PO (21:45)
[2024-07-18] MEDS: HEPARIN SODIUM 5,000 UNITS/ML VIAL 5000 UNITS SUB-Q (22:16)
[2024-07-18 22:30] LABS: Glucose Point of Care 138 mg/dl (65-105)
[2024-07-18] MEDS: AZITHROMYCIN 500 MG/NS 250 ML 500 MG/250 ML BAG 250 MG IVPB (22:30)
[2024-07-19] VITALS (14 sets, daily range): BP systolic 131–156; BP diastolic 72–85; PULSE 76–101; RESP 16–20; TEMP 36.4–37.5; O2SAT 96–100
[2024-07-19] MEDS: ONDANSETRON INJ 4 MG/2 ML VIAL IV PUSH ×4 (00:25→14:24)
[2024-07-19] MEDS: metroNIDAZOLE 500 MG/ISO 100ML 500 MG/100 ML BAG 100 MG IVPB ×4 (00:25→17:41)
[2024-07-19 04:52] LABS: Basophils Percent Auto 0.1 % (0.2-1.2); Eosinophils Percent Auto 0.2 % (0-4.4); Hematocrit 38.8 % (42.0-52.0); Hemoglobin 13.3 g/dL (14.0-18.0); Immature Granulocyte Absolute 0.09 K/mm3 (0.00-0.031); Immature Granulocyte Percent A 0.6 % (0-0.5); Lymphocytes Percent Auto 22.7 % (18.3-44.2); Mean Corpuscular HGB Conc 34.3 g/dl (32-36); Mean Corpuscular Hemoglobin 28.3 pg (26-34); Mean Corpuscular Volume 82.6 fl (80-100); Mean Platelet Volume 11.2 fl (7.4-10.4); Monocytes Absolute Auto 1.4 K/mm3 (0.1-0.6); Monocytes Percent Auto 9.7 % (2.6-8.5); Neutrophils Absolute Auto 9.7 K/mm3 (1.3-6.7); Neutrophils Percent Auto 66.7 % (45.5-73.1); Platelet Count Result 142 k/mm3 (150-375); Red Cell Distribution Width 14.5 % (11.5-14.5); White Blood Count 14.5 K/mm3 (4.5-10.0)
[2024-07-19 05:00] LABS: Albumin Level 3.8 g/dL (3.5-5.1); Anion Gap 11 mmol/L (4-12); Blood Urea Nitrogen 20 mg/dL (9-20); Calcium 6.3 mg/dL (8.4-10.2); Carbon Dioxide 21 mmol/L (22-30); Chloride 110 mmol/L (98-107); Estimated CRCL calculation 58 ml/min; Estimated Glomerular Filt Rate > 60; Glucose 135 mg/dL (65-110); Phosphorus 1.8 mg/dL (2.5-4.5); Potassium 3.1 mmol/L (3.4-5.0); Sodium 142 mmol/L (137-145)
[2024-07-19 07:24] LABS: Glucose Point of Care 139 mg/dl (65-105)
[2024-07-19] MEDS: POTASSIUM PHOS/SODIUM PHOS 250 MG TABLET 500 MG PO (09:07)
[2024-07-19] MEDS: TAMSULOSIN HCL 0.4 MG CAPSULE PO (09:08)
[2024-07-19] MEDS: SIMETHICONE 80 MG TAB.CHEW PO ×4 (09:08→21:11)
[2024-07-19] MEDS: ALPRAZolam (*CRX) 0.25 MG TABLET PO ×2 (09:13→21:11)
--- NOTE | 2024-07-19 09:30 | P.PNNP_ITS ---
Progress Note: A&P Assessment and Plan (1) Acute kidney injury: Code(s): N17.9 - Acute kidney failure, unspecified Status: Acute Assessment and Plan: * resolving if not resolved * as noted by admission labs * baseline creatinine not entirely clear... * no recent labs available * creatinine was 1.06mg/dl in April 2022 ([facility] labs) * creatinine in 2019 (by [facility] labs) was normal * slow improvement noted with ríos catheter placement * currently having post-obstructive diuresis * repeat renal ultrasound to ensure improvement in hydronephrosis (seen on admission CT scan) * follow trend of repeat labs and UOP (2) BPH with urinary obstruction: Code(s): N40.1 - Benign prostatic hyperplasia with lower urinary tract symptoms; N13.8 - Other obstructive and reflux uropathy Status: Acute Assessment and Plan: * as noted by admission CT scan: * grossly distended urinary bladder with urinary bladder stone * enlarged prostate * bilateral moderate hydroureter and hydronephrotic changes * confirmed by bladder scan in ER * s/p ríos catheter placement * significant UOP noted consistent with postobstructive diuresis * Urology recommendations noted (3) Hyperkalemia: Code(s): E87.5 - Hyperkalemia Status: Acute Assessment and Plan: * resolved * due to #1 and associated obstruction * s/p medical management * bicarb fluids likely helping as well * follow trend of repeat K+ levels (4) Metabolic acidosis: Code(s): E87.20 - Acidosis, unspecified Status: Acute Assessment and Plan: * resolved * due to #1 * off bicarb gtt/fluids * follow trend of CO2 levels (5) Bilateral pneumonia: Qualifiers: Lung location: lower lobe of lung Pneumonia type: due to unspecified organism Qualified Code(s): J18.9 - Pneumonia, unspecified organism Code(s): J18.9 - Pneumonia, unspecified organism Status: Acute Assessment and Plan: * as noted by admission CT scan: * ground glass appearance suggestive of pneumonia in the middle lobe and both lower lobes * follow culture data * follow respiratory statuis * on antibiotics (6) Elevated blood pressure reading: Code(s): R03.0 - Elevated blood-pressure reading, without diagnosis of hypertension Status: Acute Assessment and Plan: * suspect underlying hypertension that has not been formally diagnosed * however, his anxiety issues may be playing a role * follow trend of hemodynamics (7) Anxiety: Code(s): F41.9 - Anxiety disorder, unspecified Status: Chronic Assessment and Plan: * known history * xanax PRN (8) Diabetes: Code(s): E11.9 - Type 2 diabetes mellitus without complications Status: Chronic Assessment and Plan: * was not monitoring prior to admission * A1c elevated at 8.4 * follow accu-cheks * glycemic control per hospitalist Not much else to add -- will continue to follow from a distance. L Subjective Date/time seen: 07/19/24 09:30 Interval history: Follow-up for acute kidney injury/acute renal failure. Renal function/creatinine has normalized with current therapy/interventions to date; getting replacement for potassium and phosphorus this AM; otherwise, he feels reasonably well at the time of my visit; no other issues/events overnight or earlier this morning. Exam 2 Narrative: General: WD/WN Caucasina male in NAD Heart: normal S1 and S2; no rub Lungs: clear to auscultation Abdomen: soft, nontender, nondistended, positive bowel sounds Extremities: no cyanosis or clubbing; no edema Skin: warm and dry Objective Data Vital Signs Vital Signs: Vital Signs Temp Pulse Resp BP Pulse Ox O2 Del Method 07/19/24 08:00 99.5 F 82 20 156/74 H 100 Room Air 07/19/24 06:00 76 07/19/24 04:00 93 16 96 Room Air 07/19/24 04:00 90 07/19/24 04:00 97.6 F 90 16 148/85 H 96 07/19/24 00:00 83 07/19/24 00:00 83 20 100 Room Air 07/19/24 00:00 98.3 F 98 20 132/82 100 07/18/24 22:00 85 07/18/24 20:00 98.1 F 98 18 155/77 H 100 07/18/24 20:00 89 07/18/24 20:00 89 14 100 Room Air 07/18/24 18:00 100 07/18/24 16:00 100 07/18/24 15:55 99.7 F H 100 14 105/79 100 07/18/24 14:00 100 Intake/Output Intake/Output: Intake & Output 05/2407/17/24 07/18/24 07/19/24 23:59 23:59 23:59 23:59 Intake Total 1050 8828.3 2330 Output Total 4700 5900 900 Balance -3650 2928.3 1430 Meds/Results Medications: Active Medications Generic Name Dose Route Start Last Admin Trade Name Freq PRN Reason Stop Dose Admin Acetaminophen 650 mg 07/17/24 23:20 Acetaminophen 325 Mg Tablet PO Q4H PRN Mild Pain (1-3) or Fever Alprazolam 0.25 mg 07/18/24 01:50 07/19/24 09:13 Alprazolam (*Crx) 0.25 Mg Tablet PO 0.25 mg TID PRN Administration Anxiety Dextrose 12.5 gm 07/18/24 02:51 Dextrose 50% 25 Gm/50 Ml Syringe IV PUSH PRN PRN Hypoglycemia Protocol Glucagon 1 mg 07/18/24 02:51 Glucagon For Inj 1 Mg Vial IM PRN PRN Hypoglycemia Protocol Glucose 15 gm 07/18/24 02:51 Glucose Oral Gel 15 Gm Of Glucse In 37.5 Gm Tube PO PRN PRN Hypoglycemia Protocol Heparin Sodium (Porcine) 5,000 units 07/18/24 09:00 07/19/24 09:11 Heparin Sodium 5,000 Units/Ml Vial SUB-Q Not Given Q12HR DAPHNE Dextrose 1,000 mls @ 100 mls/hr 07/18/24 02:51 Dextrose 5% 1,000 Ml IVPB PRN PRN Hypoglycemia Protocol Metronidazole 500 mg in 100 mls @ 100 mls/hr 07/18/24 04:00 07/19/24 12:36 Flagyl 500 Mg/Iso Soln 100 Ml IVPB 100 mls/hr Q6HR DAPHNE Administration Ceftriaxone Sodium 1 gm in 50 mls @ 100 mls/hr 07/18/24 22:00 07/18/24 22:15 Rocephin 1 Gm/Ns 50 Ml IVPB Infused Q24H DAPHNE Infusion Azithromycin 500 mg in 250 mls @ 250 mls/hr 07/18/24 23:00 07/18/24 23:30 Zithromax IVPB Infused Q24H DAPHNE Infusion Sodium Chloride 1,000 mls @ 30 mls/hr 07/18/24 19:50 07/18/24 20:34 Normal Saline Iv IV CONT 75 mls/hr .Q24H DAPHNE Administration Insulin Aspart 3 - 6 units 07/18/24 08:00 07/19/24 12:23 Insulin Aspart (*Bkc) 100 Units/Ml SUB-Q Not Given TIDWM [facility] Protocol Insulin Aspart 1 - 3 units 07/18/24 21:00 07/18/24 22:17 Insulin Aspart (*Bkc) 100 Units/Ml SUB-Q Not Given HS [facility] Protocol Loperamide HCl 2 mg 07/18/24 04:23 Loperamide Hcl 2 Mg Capsule PO PRN PRN Diarrhea Ondansetron HCl 4 mg 07/17/24 23:20 07/19/24 09:59 Ondansetron Inj 4 Mg/2 Ml Vial IV PUSH 4 mg Q4H PRN Administration Nausea Simethicone 80 mg 07/18/24 13:00 07/19/24 12:36 Simethicone 80 Mg Tab.Chew PO 80 mg QID DAPHNE Administration Tamsulosin HCl 0.4 mg 07/18/24 09:00 07/19/24 09:08 Tamsulosin Hcl 0.4 Mg Capsule PO 0.4 mg QAM DAPHNE Administration Radiology Results: ITS Impressions Abdomen/Pelvis CT 07/17/24 20:41 IMPRESSION: 1. Grossly distended urinary bladder with urinary bladder stone. 2. Enlarged prostate. 3. Bilateral moderate hydroureter and hydronephrotic changes. 4. Tiny stone in the right kidney midpole. Bilateral renal cysts. 5. Cholelithiasis. 6. No evidence of appendicitis, diverticulitis or intestinal obstruction. 7. Ground glass appearance suggestive of pneumonia in the middle lobe and both lower lobes. Follow-up advised. Chest X-Ray 07/18/24 06:27 IMPRESSION: No focal infiltrate or effusion. Labs Labs: Laboratory Tests 07/19/24 04:10 07/19/24 04:10 Calcium 6.3 L Phosphorus 1.8 L Albumin 3.8 Microbiology 07/17/24 22:30 Blood Blood Culture - Preliminary 07/17/24 22:30 Blood Blood Culture - Preliminary
[2024-07-19 11:31] LABS: Glucose Point of Care 159 mg/dl (65-105)
--- NOTE | 2024-07-19 11:32 | WPDUROPN2 ---
Progress Note: A&P Assessment and Plan (1) Acute renal failure: Qualifiers: Acute renal failure type: unspecified Qualified Code(s): N17.9 - Acute kidney failure, unspecified Code(s): N17.9 - Acute kidney failure, unspecified Status: Acute Assessment and Plan: Likely due to bladder outlet obstruction from enlarged prostate Renal function continues to improve with bladder decompression (2) Hydroureter: Code(s): N13.4 - Hydroureter Status: Acute Assessment and Plan: Hydronephrosis and hydroureter should improve with Ortega drainage of the bladder Plan for outpatient KESHAV within the next few weeks to ensure resolution (3) Acute urinary retention: Code(s): R33.8 - Other retention of urine Status: Acute Assessment and Plan: The bladder was very distended. Patient aware there is likely to be ongoing dysfunction and poor bladder functioning which would preclude successful voiding trial. (4) Bladder stone: Code(s): N21.0 - Calculus in bladder Status: Acute Assessment and Plan: The bladder stone is secondary to the bladder outlet obstruction. It is a minor issue and can be managed when the prostate is managed in the future. (5) Enlarged prostate: Code(s): N40.0 - Benign prostatic hyperplasia without lower urinary tract symptoms Status: Acute Assessment and Plan: Plan outpatient prostate work up. Would not check PSA at this time as it would be artificially elevated. Plan - Maintain indwelling Ortega to gravity drainage until the renal function has normalized - Plan for VT tomorrow 07/19 in AM - There is high probability of needing a catheter replaced or of needing to learn clean intermittent catheterization (CIC) prior to discharge, patient is receptive to CIC if necessary - No plan for surgical intervention at this time Subjective Subjective Date/Time Seen: 07/19/24 11:32 Interval history: NAEO; Afebrile Renal failure resolving with indwelling Ortega Cr 1.2 from 22 on admission Patient comfortable on exam, no distress. Overall, he is not enjoying being hospitalized. Frustrated with length of stay. Exam Urinary Catheter: Urinary Catheter: patent and draining, urine clear and other (light jasmin) Objective Data Vital Signs Vital Signs: Vital Signs - 24 hr 07/18/24 12:00 07/18/24 12:00 07/18/24 14:00 Temperature 98.5 F Pulse Rate 91 102 H 100 Respiratory Rate 18 Blood Pressure 160/78 H Pulse Oximetry 100 Oxygen Delivery 07/18/24 15:55 07/18/24 16:00 07/18/24 18:00 Temperature 99.7 F H Pulse Rate 100 100 100 Respiratory Rate 14 Blood Pressure 105/79 Pulse Oximetry 100 Oxygen Delivery 07/18/24 20:00 07/18/24 20:00 07/18/24 20:00 Temperature 98.1 F Pulse Rate 89 89 98 Respiratory Rate 14 18 Blood Pressure 155/77 H Pulse Oximetry 100 100 Oxygen Delivery Room Air 07/18/24 22:00 07/19/24 00:00 07/19/24 00:00 Temperature 98.3 F Pulse Rate 85 98 83 Respiratory Rate 20 20 Blood Pressure 132/82 Pulse Oximetry 100 100 Oxygen Delivery Room Air 07/19/24 00:00 07/19/24 04:00 07/19/24 04:00 Temperature 97.6 F Pulse Rate 83 90 90 Respiratory Rate 16 Blood Pressure 148/85 H Pulse Oximetry 96 Oxygen Delivery 07/19/24 04:00 07/19/24 06:00 07/19/24 08:00 Temperature 99.5 F Pulse Rate 93 76 82 Respiratory Rate 16 20 Blood Pressure 156/74 H Pulse Oximetry 96 100 Oxygen Delivery Room Air Intake/Output Intake/Output: Intake & Output 07/16/24 07/17/24 07/18/24 07/19/24 23:59 23:59 23:59 23:59 Intake Total 1050 8828.3 2230 Output Total 4700 5900 900 Balance -3650 2928.3 1330 Meds/Results Medications: Active Medications Generic Name Dose Route Start Last Admin Trade Name Freq PRN Reason Stop Dose Admin Acetaminophen 650 mg 07/17/24 23:20 Acetaminophen 325 Mg Tablet PO Q4H PRN Mild Pain (1-3) or Fever Alprazolam 0.25 mg 07/18/24 01:50 07/19/24 09:13 Alprazolam (*Crx) 0.25 Mg Tablet PO 0.25 mg TID PRN Administration Anxiety Dextrose 12.5 gm 07/18/24 02:51 Dextrose 50% 25 Gm/50 Ml Syringe IV PUSH PRN PRN Hypoglycemia Protocol Glucagon 1 mg 07/18/24 02:51 Glucagon For Inj 1 Mg Vial IM PRN PRN Hypoglycemia Protocol Glucose 15 gm 07/18/24 02:51 Glucose Oral Gel 15 Gm Of Glucse In 37.5 Gm Tube PO PRN PRN Hypoglycemia Protocol Heparin Sodium (Porcine) 5,000 units 07/18/24 09:00 07/19/24 09:11 Heparin Sodium 5,000 Units/Ml Vial SUB-Q Not Given Q12HR DAPHNE Dextrose 1,000 mls @ 100 mls/hr 07/18/24 02:51 Dextrose 5% 1,000 Ml IVPB PRN PRN Hypoglycemia Protocol Metronidazole 500 mg in 100 mls @ 100 mls/hr 07/18/24 04:00 07/19/24 05:38 Flagyl 500 Mg/Iso Soln 100 Ml IVPB 100 mls/hr Q6HR DAPHNE Administration Ceftriaxone Sodium 1 gm in 50 mls @ 100 mls/hr 07/18/24 22:00 07/18/24 22:15 Rocephin 1 Gm/Ns 50 Ml IVPB Infused Q24H DAPHNE Infusion Azithromycin 500 mg in 250 mls @ 250 mls/hr 07/18/24 23:00 07/18/24 23:30 Zithromax IVPB Infused Q24H DAPHNE Infusion Sodium Chloride 1,000 mls @ 30 mls/hr 07/18/24 19:50 07/18/24 20:34 Normal Saline Iv IV CONT 75 mls/hr .Q24H DAPHNE Administration Calcium Gluconate 2,000 mg in 100 mls @ 100 mls/hr 07/19/24 11:01 Calcium Gluc 2,000 Mg/Ns 100ml IVPB 07/19/24 12:00 ONCE ONE Insulin Aspart 3 - 6 units 07/18/24 08:00 07/19/24 09:06 Insulin Aspart (*Bkc) 100 Units/Ml SUB-Q Not Given TIDWM [facility] Protocol Insulin Aspart 1 - 3 units 07/18/24 21:00 07/18/24 22:17 Insulin Aspart (*Bkc) 100 Units/Ml SUB-Q Not Given HS [facility] Protocol Loperamide HCl 2 mg 07/18/24 04:23 Loperamide Hcl 2 Mg Capsule PO PRN PRN Diarrhea Ondansetron HCl 4 mg 07/17/24 23:20 07/19/24 09:59 Ondansetron Inj 4 Mg/2 Ml Vial IV PUSH 4 mg Q4H PRN Administration Nausea Simethicone 80 mg 07/18/24 13:00 07/19/24 09:08 Simethicone 80 Mg Tab.Chew PO 80 mg QID DAPHNE Administration Tamsulosin HCl 0.4 mg 07/18/24 09:00 07/19/24 09:08 Tamsulosin Hcl 0.4 Mg Capsule PO 0.4 mg QAM DAPHNE Administration Radiology Results: ITS Impressions Abdomen/Pelvis CT 07/17/24 20:41 IMPRESSION: 1. Grossly distended urinary bladder with urinary bladder stone. 2. Enlarged prostate. 3. Bilateral moderate hydroureter and hydronephrotic changes. 4. Tiny stone in the right kidney midpole. Bilateral renal cysts. 5. Cholelithiasis. 6. No evidence of appendicitis, diverticulitis or intestinal obstruction. 7. Ground glass appearance suggestive of pneumonia in the middle lobe and both lower lobes. Follow-up advised. Chest X-Ray 07/18/24 06:27 IMPRESSION: No focal infiltrate or effusion. Labs Labs: Laboratory Results - last 24 hr 07/18/24 07/18/24 07/18/24 11:36 15:52 18:16 WBC RBC Hgb Hct MCV MCH MCHC RDW Plt Count MPV Immature Gran % (Auto) Neut % (Auto) Lymph % (Auto) Beaver % (Auto) Eos % (Auto) Baso % (Auto) Lymph # (Auto) [place] # (Auto) Eos # (Auto) Baso # (Auto) Abs Immat Gran (auto) Absolute Neuts (auto) Absolute Nucleated RBC Nucleated RBC % Sodium 143 Potassium 2.8 L* Chloride 111 H Carbon Dioxide 21 L Anion Gap 11 BUN 38 H D Creatinine 2.06 H Estim Creat Clear Calc 34 Estimated GFR 33 L Glucose 190 H POC Capillary Glucose 193 H 177 H Calcium 6.1 L Phosphorus 2.2 L Albumin 3.8 07/18/24 07/19/24 07/19/24 22:11 04:10 07:21 WBC 14.5 H RBC 4.70 Hgb 13.3 L Hct 38.8 L MCV 82.6 MCH 28.3 MCHC 34.3 RDW 14.5 Plt Count 142 L MPV 11.2 H Immature Gran % (Auto) 0.6 H Neut % (Auto) 66.7 Lymph % (Auto) 22.7 Beaver % (Auto) 9.7 H Eos % (Auto) 0.2 Baso % (Auto) 0.1 L Lymph # (Auto) 3.30 H Beaver # (Auto) 1.4 H Eos # (Auto) 0.0 Baso # (Auto) 0.0 Abs Immat Gran (auto) 0.09 H Absolute Neuts (auto) 9.7 H Absolute Nucleated RBC 0.000 Nucleated RBC % 0.0 Sodium 142 Potassium 3.1 L Chloride 110 H Carbon Dioxide 21 L Anion Gap 11 BUN 20 D Creatinine 1.18 Estim Creat Clear Calc 58 Estimated GFR > 60 Glucose 135 H POC Capillary Glucose 138 H 139 H Calcium 6.3 L Phosphorus 1.8 L Albumin 3.8 07/19/24 11:16 WBC RBC Hgb Hct MCV MCH MCHC RDW Plt Count MPV Immature Gran % (Auto) Neut % (Auto) Lymph % (Auto) Beaver % (Auto) Eos % (Auto) Baso % (Auto) Lymph # (Auto) [place] # (Auto) Eos # (Auto) Baso # (Auto) Abs Immat Gran (auto) Absolute Neuts (auto) Absolute Nucleated RBC Nucleated RBC % Sodium Potassium Chloride Carbon Dioxide Anion Gap BUN Creatinine Estim Creat Clear Calc Estimated GFR Glucose POC Capillary Glucose 159 H Calcium Phosphorus Albumin
--- NOTE | 2024-07-19 11:58 | P.CONGS_ITS ---
Assessment and Plan Assessment and plan (1) Cholelithiasis: Code(s): K80.20 - Calculus of gallbladder without cholecystitis without obstruction Status: Acute Assessment and Plan: * Patient was noted to have gallstones CT. This is completely asymptomatic. I educated patient on typical symptoms of gallbladder disease. Would not recommend surgical intervention unless symptoms. Will Sign off. (2) Umbilical hernia without obstruction and without gangrene: Code(s): K42.9 - Umbilical hernia without obstruction or gangrene Status: Acute Assessment and Plan: * Asymptomatic small umbilical hernia noted exam. No surgical intervention required unless patient begins developing symptoms. (3) Acute renal failure: Qualifiers: Acute renal failure type: unspecified Qualified Code(s): N17.9 - Acute kidney failure, unspecified Code(s): N17.9 - Acute kidney failure, unspecified Status: Acute (4) BPH with urinary obstruction: Code(s): N40.1 - Benign prostatic hyperplasia with lower urinary tract symptoms; N13.8 - Other obstructive and reflux uropathy Status: Acute History of Present Illness Consult details Consult date: 07/19/24 Reason for consult: gallstones Requesting physician: Gerry Nelson MD Narrative: This is a 64-year-old man who I am asked to see for gallstones. This is not the reason for his admission and patient states that he has never had any symptoms in the past. He denies any right upper quadrant pain after eating. He denies any intolerance to fried or fatty foods. The patient was admitted for bladder and kidney issues. He appeared to have bladder outlet obstruction secondary hydronephrosis and acute renal failure. He is being seen by Nephrology and Urology. He is feeling much better today and overall is much better from when he 1st presented. Review of Systems 2 Review of Systems: All systems reviewed & are unremarkable except as noted in HPI and below Eyes: Eyes: Denies change in vision ENT: Denies hearing loss, Denies neck pain and Denies sore throat Cardiovascular: Cardiovascular: Denies chest pain and Denies dyspnea Respiratory: Respiratory: Denies cough, Denies dyspnea and Denies wheezing Gastrointestinal: Gastrointestinal: Reports as per HPI Genitourinary: Genitourinary: Reports as per HPI Musculoskeletal: Musculoskeletal: Denies arthralgias, Denies joint swelling and Denies neck pain Allergic/Immunologic: Allergic/Immunologic: Denies wheezing [facility] Past Medical History Medical History (Updated 07/19/24 @ 12:02 by Terry Brown DO) Nonadherence to medication Diabetic peripheral neuropathy Charcot foot due to diabetes mellitus Diabetes mellitus, type II Surgical History Surgical History (Updated 07/18/24 @ 02:40 by Shante Winchester DO) History of orthopedic surgery 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 They been for 37 years. They raised 1 daughter and 1 son. 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 He is a lifelong nonsmoker does not drink alcohol or use illicit substances. Code status: Full code Surrogate decision maker: Mary () Smoking status: Never smoker Second hand tobacco smoke exposure: No Alcohol intake: never Substance use: never Substance use type: does not use Do You Feel Safe in your Home?: Yes Lack of Transportation: No Lack of Food: Never True Current Housing: I Have Housing Concerned About Future Housing: No Difficulty Paying Gas/Electric Bills: No Difficulty Paying for Meds: No Currently Unemployed: No Education: High School Diploma/GED Difficulty w/ Childcare or Family Care: No Spiritual care concerns: No Meds Home Medications and Allergies Home Medications ?Medication ?Instructions ?Recorded ?Confirmed ?Type No Home Medications 07/18/24 07/18/24 History Allergies Allergy/AdvReac Type Severity Reaction Status Date / Time No Known Allergies Allergy Unverified 07/18/24 01:10 Vital Signs Vital Signs - 24 hr 07/18/24 12:00 07/18/24 12:00 07/18/24 14:00 Temperature 98.5 F Pulse Rate 91 102 H 100 Respiratory Rate 18 Blood Pressure 160/78 H Pulse Oximetry 100 Oxygen Delivery 07/18/24 15:55 07/18/24 16:00 07/18/24 18:00 Temperature 99.7 F H Pulse Rate 100 100 100 Respiratory Rate 14 Blood Pressure 105/79 Pulse Oximetry 100 Oxygen Delivery 07/18/24 20:00 07/18/24 20:00 07/18/24 20:00 Temperature 98.1 F Pulse Rate 89 89 98 Respiratory Rate 14 18 Blood Pressure 155/77 H Pulse Oximetry 100 100 Oxygen Delivery Room Air 07/18/24 22:00 07/19/24 00:00 07/19/24 00:00 Temperature 98.3 F Pulse Rate 85 98 83 Respiratory Rate 20 20 Blood Pressure 132/82 Pulse Oximetry 100 100 Oxygen Delivery Room Air 07/19/24 00:00 07/19/24 04:00 07/19/24 04:00 Temperature 97.6 F Pulse Rate 83 90 90 Respiratory Rate 16 Blood Pressure 148/85 H Pulse Oximetry 96 Oxygen Delivery 07/19/24 04:00 07/19/24 06:00 07/19/24 08:00 Temperature 99.5 F Pulse Rate 93 76 82 Respiratory Rate 16 20 Blood Pressure 156/74 H Pulse Oximetry 96 100 Oxygen Delivery Room Air 07/19/24 11:48 Temperature 98.2 F Pulse Rate 89 Respiratory Rate 20 Blood Pressure 140/76 Pulse Oximetry 100 Oxygen Delivery Exam 2 Const: General: alert; No acute distress Orientation/consciousness: patient oriented x3 Limitations: no limitations HENMT: Head: normocephalic and atraumatic Ears: hearing grossly normal bilaterally Face/Nose/Sinus: Normal external nose present and Normal nares present Mouth: Yes Normal oral and palatal mucosa present and Yes moist mucous membranes Eyes: General: appearance normal, both eyes and all related structures C onjunctivae: conjunctivae normal Sclera: sclerae normal Pupils: Equal, round and reactive pupils present EOM: EOMs intact bilaterally Neck: Neck: normal visual inspection, full ROM, no lymphadenopathy, supple and no JVD Lymphatic: no lymphadenopathy noted Chest: Chest palpation & inspection: normal inspection of the chest Resp: Effort & Inspection: normal respiratory effort and able to speak in complete sentences Auscultation: clear to auscultation bilaterally P ercussion: percussion normal Cardio: Jugular venous distension: no JVD Rate: regular rate Rhythm: r egular rhythm Heart sounds: S1 normal heart sound present and S2 normal heart sound present Peripheral pulses: Peripheral pulses 2+ throughout GI: Inspection: visible herniation (Umbilicus) GI Palp: Yes Soft to palpation, No Tenderness to palpation present (GI), No Guarding due to palpation present (GI) and Yes Hernia present umbilical < 3 cm (Soft, nontender, reducible) Percussion: Yes normal to percussion Auscultation: normal bowel sounds : General: Yes no CVA tenderness Back/Spine/Pelvis: Back: no CVA tenderness Skin: General skin exam: normal color and dry skin Neuro: General: patient oriented x3, gait normal, moves all extremities, no focal motor deficits and CN's II-XI intact bilaterally Cranial nerves: Yes Equal, round and reactive pupils present Speech: normal speech Extrem: General: normal to inspection and capillary refill normal Results Labs 07/19/24 04:10 07/19/24 04:10 Labs: Abnormal lab results 07/18/24 07/18/24 07/18/24 Range/Units 15:52 18:16 22:11 WBC (4.5-10.0) K/mm3 Hgb (14.0-18.0) g/dL Hct (42.0-52.0) % Plt Count (150-375) k/mm3 MPV (7.4-10.4) fl Immature Gran % (Auto) (0-0.5) % [place] % (Auto) (2.6-8.5) % Baso % (Auto) (0.2-1.2) % Lymph # (Auto) (0.9-3.2) K/mm3 [place] # (Auto) (0.1-0.6) K/mm3 Abs Immat Gran (auto) (0.00-0.031) K/mm3 Absolute Neuts (auto) (1.3-6.7) K/mm3 Potassium 2.8 L* (3.4-5.0) mmol/L Chloride 111 H (98-107) mmol/L Carbon Dioxide 21 L (22-30) mmol/L BUN 38 H D (9-20) mg/dL Creatinine 2.06 H (0.7-1.3) mg/dL Estimated GFR 33 L (59 - ) Glucose 190 H (65-110) mg/dL POC Capillary Glucose 177 H 138 H (65-105) mg/dl Calcium 6.1 L (8.4-10.2) mg/dL Phosphorus 2.2 L (2.5-4.5) mg/dL 07/19/24 07/19/24 07/19/24 Range/Units 04:10 07:21 11:16 WBC 14.5 H (4.5-10.0) K/mm3 Hgb 13.3 L (14.0-18.0) g/dL Hct 38.8 L (42.0-52.0) % Plt Count 142 L (150-375) k/mm3 MPV 11.2 H (7.4-10.4) fl Immature Gran % (Auto) 0.6 H (0-0.5) % [place] % (Auto) 9.7 H (2.6-8.5) % Baso % (Auto) 0.1 L (0.2-1.2) % Lymph # (Auto) 3.30 H (0.9-3.2) K/mm3 [place] # (Auto) 1.4 H (0.1-0.6) K/mm3 Abs Immat Gran (auto) 0.09 H (0.00-0.031) K/mm3 Absolute Neuts (auto) 9.7 H (1.3-6.7) K/mm3 Potassium 3.1 L (3.4-5.0) mmol/L Chloride 110 H (98-107) mmol/L Carbon Dioxide 21 L (22-30) mmol/L BUN (9-20) mg/dL Creatinine (0.7-1.3) mg/dL Estimated GFR (59 - ) Glucose 135 H (65-110) mg/dL POC Capillary Glucose 139 H 159 H (65-105) mg/dl Calcium 6.3 L (8.4-10.2) mg/dL Phosphorus 1.8 L (2.5-4.5) mg/dL Diabetes panel 07/18/24 07/19/24 Range/Units 18:16 04:10 Sodium 143 142 (137-145) mmol/L Potassium 2.8 L* 3.1 L (3.4-5.0) mmol/L Chloride 111 H 110 H (98-107) mmol/L Carbon Dioxide 21 L 21 L (22-30) mmol/L BUN 38 H D 20 D (9-20) mg/dL Creatinine 2.06 H 1.18 (0.7-1.3) mg/dL Glucose 190 H 135 H (65-110) mg/dL Calcium 6.1 L 6.3 L (8.4-10.2) mg/dL Albumin 3.8 3.8 (3.5-5.1) g/dL Calcium panel 07/18/24 07/19/24 Range/Units 18:16 04:10 Calcium 6.1 L 6.3 L (8.4-10.2) mg/dL Phosphorus 2.2 L 1.8 L (2.5-4.5) mg/dL Albumin 3.8 3.8 (3.5-5.1) g/dL Pituitary panel 07/18/24 07/19/24 Range/Units 18:16 04:10 Sodium 143 142 (137-145) mmol/L Potassium 2.8 L* 3.1 L (3.4-5.0) mmol/L Chloride 111 H 110 H (98-107) mmol/L Carbon Dioxide 21 L 21 L (22-30) mmol/L BUN 38 H D 20 D (9-20) mg/dL Creatinine 2.06 H 1.18 (0.7-1.3) mg/dL Glucose 190 H 135 H (65-110) mg/dL Calcium 6.1 L 6.3 L (8.4-10.2) mg/dL Adrenal panel 07/18/24 07/19/24 Range/Units 18:16 04:10 Sodium 143 142 (137-145) mmol/L Potassium 2.8 L* 3.1 L (3.4-5.0) mmol/L Chloride 111 H 110 H (98-107) mmol/L Carbon Dioxide 21 L 21 L (22-30) mmol/L BUN 38 H D 20 D (9-20) mg/dL Creatinine 2.06 H 1.18 (0.7-1.3) mg/dL Glucose 190 H 135 H (65-110) mg/dL Calcium 6.1 L 6.3 L (8.4-10.2) mg/dL Albumin 3.8 3.8 (3.5-5.1) g/dL All other labs normal. Imaging Additional studies: ITS Impressions Abdomen/Pelvis CT 07/17/24 20:41 IMPRESSION: 1. Grossly distended urinary bladder with urinary bladder stone. 2. Enlarged prostate. 3. Bilateral moderate hydroureter and hydronephrotic changes. 4. Tiny stone in the right kidney midpole. Bilateral renal cysts. 5. Cholelithiasis. 6. No evidence of appendicitis, diverticulitis or intestinal obstruction. 7. Ground glass appearance suggestive of pneumonia in the middle lobe and both lower lobes. Follow-up advised. Chest X-Ray 07/18/24 06:27 IMPRESSION: No focal infiltrate or effusion.
[2024-07-19] MEDS: POTASSIUM CHLORIDE 20 MEQ ER TABLET 40 MEQ PO (12:36)
[2024-07-19] MEDS: CALCIUM GLUC 2,000 MG/NS 100ML 2,000 MG/100 ML BAG 100 MG IVPB (12:37)
[2024-07-19] MEDS: SODIUM CHLORIDE 0.9% IV 1,000 ML 75 ML IV CONT (16:05)
[2024-07-19 16:20] LABS: Glucose Point of Care 205 mg/dl (65-105)
--- NOTE | 2024-07-19 17:53 | PC.NURSE ---
Transfer to room 328 from room 214
--- NOTE | 2024-07-19 18:04 | PM.IMPN ---
Progress Note: A&P Assessment and Plan (1) Acute renal failure: Qualifiers: Acute renal failure type: unspecified Qualified Code(s): N17.9 - Acute kidney failure, unspecified Code(s): N17.9 - Acute kidney failure, unspecified Status: Acute (2) BPH with urinary obstruction: Code(s): N40.1 - Benign prostatic hyperplasia with lower urinary tract symptoms; N13.8 - Other obstructive and reflux uropathy Status: Acute (3) Bilateral pneumonia: Qualifiers: Lung location: lower lobe of lung Pneumonia type: due to unspecified organism Qualified Code(s): J18.9 - Pneumonia, unspecified organism Code(s): J18.9 - Pneumonia, unspecified organism Status: Acute (4) Postobstructive diuresis: Code(s): R35.89 - Other polyuria Status: Acute (5) Metabolic acidosis with respiratory alkalosis: Code(s): E87.20 - Acidosis, unspecified; E87.3 - Alkalosis Status: Acute (6) Hyperphosphatemia associated with renal failure: Code(s): E83.39 - Other disorders of phosphorus metabolism; N19 - Unspecified kidney failure Status: Acute (7) Hyperkalemia: Code(s): E87.5 - Hyperkalemia Status: Acute (8) Bladder stone: Code(s): N21.0 - Calculus in bladder Status: Acute (9) Diarrhea: Qualifiers: Diarrhea type: unspecified type Qualified Code(s): R19.7 - Diarrhea, unspecified Code(s): R19.7 - Diarrhea, unspecified Status: Acute (10) Nonadherence to medication: Code(s): Z91.148 - Patient's other noncompliance with medication regimen for other reason Status: Acute (11) Anxiety about treatment: Code(s): R45.89 - Other symptoms and signs involving emotional state Status: Acute Plan The patient has what is likely acute on chronic bladder outlet obstruction due to BPH (plus or minus obstruction with bladder stone). His obstruction has resulted in what is likely acute on chronic kidney injury. Ortega catheter was placed in the ER. Since arriving to the IMU the patient has already had an additional 3.4 L of urine out be a sides the 1.3 L after initial catheter placement. The patient received 2 L fluid bolus in the ER but continues to have marked sinus tachycardia with heart rates between 120-140. He denies any chest pain or cardiac symptoms. The patient does still appear to be intervascular volume depleted an additional 1 L of normal saline bolus has been provided. The patient did have metabolic acidosis with compensatory respiratory alkalosis with pH of 7.3. Since catheter placement repeat electrolyte panel have been obtained and is demonstrated improvement in the patient's potassium down into normal range and significant improvement in his BUN and creatinine with BUN going from 04/05 down to 170 and creatinine decreasing from 20/ down to 14. Will continue patient on bicarb drip at 150 mL an hour. Patient is already demonstrating evidence of postobstructive diuresis. Will need to monitor urine output and make up for the patient's baseline level of dehydration that he has already had with his preceding symptoms of nausea vomiting and keep up with his excessive urine output. Will monitor strict I&O's. Will check urine electrolytes, renal ultrasound and hepatitis panel. Urology and Nephrology have been consulted. Will await further recommendations. Given that the patient's potassium is only marginally elevated I suspect patient likely has some underlying chronic kidney disease associated with his diabetes and has had subsequent acute decompensation with his obstructive uropathy. Unfortunately given the patient has not followed up with a physician in several years this cannot be confirmed. He was hospitalized 2 years ago at [facility]. It may be possible to obtain records to see patient's baseline renal function from that facility if needed. Patient has also been having diarrhea for the last week or so that appears darker black in color. Will check occult blood although GI bleed is less likely given the patient's normal hemoglobin. Will also check C diff given recent antibiotic exposure. Unfortunately diarrhea has been exacerbated by the use of Kayexalate. Likely patient's potassium has now normalized and hopefully will not have to give patient Kayexalate again. CT does not demonstrate any evidence of acute colonic process. However CT did demonstrate bilateral lower lobe infiltrates ground-glass in appearance. The patient is having tachypnea which is most likely due to his respiratory compensation for his metabolic acidosis but he could also have developed pneumonia which may be associated with aspiration given his recent vomiting. He does have marked leukocytosis but no fever. Leukocytosis could be due to pneumonia verses what is causing the patient's diarrhea verses acute look moist reaction. Will place on empiric antibiotic therapy with Rocephin and Flagyl and azithromycin. Will check urine Legionella and pneumococcal antigen. With possible infection, leukocytosis, tachycardia the patient does fit sepsis criteria but lactic acid is normal. Will check procalcitonin. Patient did receive 30 mL/kilos fluid bolus in the ER and an additional L has been administered. Blood cultures have been obtained and are pending. Patient has baseline poorly controlled diabetes with complications in noncompliance with management including not checking his glucoses at home. Will check A1c in a.m.. Will place patient on moderate dose sliding scale insulin with Accu-Cheks a.c. HS. Will change patient's diet to consistent carbohydrate. Patient is quite anxious and restless. Portion of his tachycardia could be due to excess anxiety. Patient is requesting medications for anxiety. I did give order for Xanax but the patient is quite worked up in tremulous when I went back to update him on his repeat labs. He was literally shaking and seemed to be having a acute episode of panic. Subsequently 0.5 mg of IV Ativan was ordered. Importance of adherence with medical therapy and follow-up with providers was discussed in detail with the patient and his at bedside. Repeat renal function panel, magnesium, and CBC have been ordered for a.m. patient is 64 y/o presented with urinary retention most likely 2/2 enlarge prostate and bladder stone causing obstructive and reflux uropathy resulting in HOLLIS with elevated upon arrival BUN/CR 211/21 and CO2 of 7 in metabolic acidosis, Ortega was placed in the ER and patient has been able to urinate patient is been hydrated and sodium bicarb is given and his BUN/Cr and CO2 have improved to 75/4.76 and 15 respectivley, today his BUN/Scr are near normal, patient is seen by passport support manager and urologist further recommendation to follow, patient clinical symptoms have improved, patient will have avoiding trial tomorrow and possible discharge home, will continue to monitor. Subjective Date/time seen: 07/19/24 18:04 Interval history: Nauseated for 1 month H&P-Narrative: 64-year-old male with a past medical history of uncontrolled diabetes mellitus, diabetic peripheral neuropathy and previously undiagnosed BPH who presented to the ER from home via private vehicle due to intermittent nausea vomiting for 1 month. The patient's provides the majority history with patient's permission and the patient supplements history. 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 About 1 month ago he started having difficulty with urination. He stated that for about a week he could not urinate at all. After about a week of this he was able to then start dribbling urine and was having persistent episodes of incontinent throughout the course of the month. On 06/17/2024 He broke down and did a telehealth visit and was prescribed cefuroxime for 7 days. He did not have any improved in his symptoms with antibiotics so he then went to urgent care on June 24 and was told that he likely had BPH and was started on terazosin for 10 days. He did not in notice any improvement in his symptoms. Over the last several days the patient had noted acute the abdominal distension and had been having some loose stools multiple times a day for the last 3 days. He reported that his abdomen felt full but denied having any pain. He has not had any recent ill contacts. He has never had a colonoscopy or routine health screenings. He reports that the nausea has gotten bad enough that he had not had had much to drink over the last couple of days. The patient's stated the patient was reluctant to come to the hospital because he hates hospitals and doctors. The patient's had noticed the patient was having more labored respirations for the last several days. She enlisted the help of her children in convincing the patient to come in for evaluation. In the ER CT was performed which demonstrated markedly distended bladder with a bladder stone, significant BPH, moderate bilateral hydroureter and hydronephrotic changes right kidney stone and ground-glass opacities suggestive of pneumonia in the middle lobe and both lower lobes. The patient's bladder scan demonstrated 2 L of urine a Ortega catheter was placed with immediate return to 1.3 L. He reports that this time that is extremely anxious and is requesting something. He is obviously restless and not happy with being in the hospital. He is also not happy with the fact that he has been having increased diarrhea since receiving Kayexalate. The patient has had longstanding history of type 2 diabetes mellitus at the time of his diagnosis in 2018 ER he had peripheral neuropathy. 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 The patient states he does not take any diabetic medications and has not followed up with a primary care physician in many years. He still follows with his transmission rebuilder on a regular basis. patient is 64 y/o presented with urinary retention most likely 2/2 enlarge prostate and bladder stone causing obstructive and reflux uropathy resulting in HOLLIS with elevated upon arrival BUN/CR 211/21 and CO2 of 7 in metabolic acidosis, Ortega was placed in the ER and patient has been able to urinate patient is been hydrated and sodium bicarb is given and his BUN/Cr and CO2 have improved to 75/4.76 and 15 respectivley, today his BUN/Scr are near normal, patient is seen by passport support manager and urologist further recommendation to follow, patient clinical symptoms have improved, patient will have avoiding trial tomorrow and possible discharge home, will continue to monitor. Review of Systems Review of Systems: 12 systems were reviewed with pertinent positives and negatives per HPI. Except as documented in the HPI, all other systems were reviewed and are negative. Exam Narrative: Patient is comfortable, NAD HEENT: eyes are clear and none icteric LUNGS:CTA HEART: RR S1S2 ABD: BS+, Soft and nontender Lower extremities: no edema SKIN: nonjaundiced Neuro: grossly intact. Objective Data Vital Signs Vital Signs: Vital Signs - 24 hr 07/18/24 20:00 07/18/24 20:00 07/18/24 20:00 Temperature 36.7 C Pulse Rate 89 89 98 Respiratory Rate 14 18 Blood Pressure 155/77 H Pulse Oximetry 100 100 Oxygen Delivery Room Air 07/18/24 22:00 07/19/24 00:00 07/19/24 00:00 Temperature 36.8 C Pulse Rate 85 98 83 Respiratory Rate 20 20 Blood Pressure 132/82 Pulse Oximetry 100 100 Oxygen Delivery Room Air 07/19/24 00:00 07/19/24 04:00 07/19/24 04:00 Temperature 36.4 C Pulse Rate 83 90 90 Respiratory Rate 16 Blood Pressure 148/85 H Pulse Oximetry 96 Oxygen Delivery 07/19/24 04:00 07/19/24 06:00 07/19/24 08:00 Temperature 37.5 C Pulse Rate 93 76 82 Respiratory Rate 16 20 Blood Pressure 156/74 H Pulse Oximetry 96 100 Oxygen Delivery Room Air 07/19/24 08:00 07/19/24 08:00 07/19/24 10:00 Temperature Pulse Rate 101 H 78 Respiratory Rate Blood Pressure Pulse Oximetry Oxygen Delivery Room Air 07/19/24 11:48 07/19/24 12:00 07/19/24 12:00 Temperature 36.8 C Pulse Rate 89 81 Respiratory Rate 20 Blood Pressure 140/76 Pulse Oximetry 100 Oxygen Delivery Room Air 07/19/24 14:00 07/19/24 16:00 07/19/24 16:00 Temperature 36.9 C Pulse Rate 85 83 81 Respiratory Rate 18 Blood Pressure 145/72 H Pulse Oximetry 100 Oxygen Delivery Intake/Output Intake/Output: Intake & Output 07/16/24 07/17/24 07/18/24 07/19/24 23:59 23:59 23:59 23:59 Intake Total 1050 8828.3 3670 Output Total 4700 5900 900 Balance -3650 2928.3 2770 Meds/Results Medications: Active Medications Generic Name Dose Route Start Last Admin Trade Name Freq PRN Reason Stop Dose Admin Acetaminophen 650 mg 07/17/24 23:20 Acetaminophen 325 Mg Tablet PO Q4H PRN Mild Pain (1-3) or Fever Alprazolam 0.25 mg 07/18/24 01:50 07/19/24 09:13 Alprazolam (*Crx) 0.25 Mg Tablet PO 0.25 mg TID PRN Administration Anxiety Dextrose 12.5 gm 07/18/24 02:51 Dextrose 50% 25 Gm/50 Ml Syringe IV PUSH PRN PRN Hypoglycemia Protocol Glucagon 1 mg 07/18/24 02:51 Glucagon For Inj 1 Mg Vial IM PRN PRN Hypoglycemia Protocol Glucose 15 gm 07/18/24 02:51 Glucose Oral Gel 15 Gm Of Glucse In 37.5 Gm Tube PO PRN PRN Hypoglycemia Protocol Heparin Sodium (Porcine) 5,000 units 07/18/24 09:00 07/19/24 09:11 Heparin Sodium 5,000 Units/Ml Vial SUB-Q Not Given Q12HR DAPHNE Dextrose 1,000 mls @ 100 mls/hr 07/18/24 02:51 Dextrose 5% 1,000 Ml IVPB PRN PRN Hypoglycemia Protocol Metronidazole 500 mg in 100 mls @ 100 mls/hr 07/18/24 04:00 07/19/24 17:41 Flagyl 500 Mg/Iso Soln 100 Ml IVPB 100 mls/hr Q6HR DAPHNE Administration Ceftriaxone Sodium 1 gm in 50 mls @ 100 mls/hr 07/18/24 22:00 07/18/24 22:15 Rocephin 1 Gm/Ns 50 Ml IVPB Infused Q24H [facility] Infusion Azithromycin 500 mg in 250 mls @ 250 mls/hr 07/18/24 23:00 07/18/24 23:30 Zithromax IVPB Infused Q24H [facility] Infusion Sodium Chloride 1,000 mls @ 30 mls/hr 07/18/24 19:50 07/19/24 16:05 Normal Saline Iv IV CONT 75 mls/hr .Q24H DAPHNE Administration Insulin Aspart 3 - 6 units 07/18/24 08:00 07/19/24 17:16 Insulin Aspart (*Bkc) 100 Units/Ml SUB-Q Not Given TIDWM [facility] Protocol Insulin Aspart 1 - 3 units 07/18/24 21:00 07/18/24 22:17 Insulin Aspart (*Bkc) 100 Units/Ml SUB-Q Not Given HS [facility] Protocol Loperamide HCl 2 mg 07/18/24 04:23 Loperamide Hcl 2 Mg Capsule PO PRN PRN Diarrhea Ondansetron HCl 4 mg 07/17/24 23:20 07/19/24 14:24 Ondansetron Inj 4 Mg/2 Ml Vial IV PUSH 4 mg Q4H PRN Administration Nausea Simethicone 80 mg 07/18/24 13:00 07/19/24 16:12 Simethicone 80 Mg Tab.Chew PO 80 mg QID [facility] Administration Tamsulosin HCl 0.4 mg 07/18/24 09:00 07/19/24 09:08 Tamsulosin Hcl 0.4 Mg Capsule PO 0.4 mg QAM DAPHNE Administration Radiology Results: ITS Impressions Abdomen/Pelvis CT 07/17/24 20:41 IMPRESSION: 1. Grossly distended urinary bladder with urinary bladder stone. 2. Enlarged prostate. 3. Bilateral moderate hydroureter and hydronephrotic changes. 4. Tiny stone in the right kidney midpole. Bilateral renal cysts. 5. Cholelithiasis. 6. No evidence of appendicitis, diverticulitis or intestinal obstruction. 7. Ground glass appearance suggestive of pneumonia in the middle lobe and both lower lobes. Follow-up advised. Chest X-Ray 07/18/24 06:27 IMPRESSION: No focal infiltrate or effusion. Renal Ultrasound 07/19/24 14:01 IMPRESSION: 1. Approximately 2 cm bilateral renal cysts. Otherwise normal kidneys with resolution of prior bilateral hydronephrosis likely related to interval Ortega catheter placement with decompression of the previously distended bladder. Labs Labs: Laboratory Results - last 24 hr 07/18/24 07/18/24 07/19/24 18:16 22:11 04:10 WBC 14.5 H RBC 4.70 Hgb 13.3 L Hct 38.8 L MCV 82.6 MCH 28.3 MCHC 34.3 RDW 14.5 Plt Count 142 L MPV 11.2 H Immature Gran % (Auto) 0.6 H Neut % (Auto) 66.7 Lymph % (Auto) 22.7 [place] % (Auto) 9.7 H Eos % (Auto) 0.2 Baso % (Auto) 0.1 L Lymph # (Auto) 3.30 H [place] # (Auto) 1.4 H Eos # (Auto) 0.0 Baso # (Auto) 0.0 Abs Immat Gran (auto) 0.09 H Absolute Neuts (auto) 9.7 H Absolute Nucleated RBC 0.000 Nucleated RBC % 0.0 Sodium 143 142 Potassium 2.8 L* 3.1 L Chloride 111 H 110 H Carbon Dioxide 21 L 21 L Anion Gap 11 11 BUN 38 H D 20 D Creatinine 2.06 H 1.18 Estim Creat Clear Calc 34 58 Estimated GFR 33 L > 60 Glucose 190 H 135 H POC Capillary Glucose 138 H Calcium 6.1 L 6.3 L Phosphorus 2.2 L 1.8 L Albumin 3.8 3.8 07/19/24 07/19/24 07/19/24 07:21 11:16 16:17 WBC RBC Hgb Hct MCV MCH MCHC RDW Plt Count MPV Immature Gran % (Auto) Neut % (Auto) Lymph % (Auto) [place] % (Auto) Eos % (Auto) Baso % (Auto) Lymph # (Auto) [place] # (Auto) Eos # (Auto) Baso # (Auto) Abs Immat Gran (auto) Absolute Neuts (auto) Absolute Nucleated RBC Nucleated RBC % Sodium Potassium Chloride Carbon Dioxide Anion Gap BUN Creatinine Estim Creat Clear Calc Estimated GFR Glucose POC Capillary Glucose 139 H 159 H 205 H Calcium Phosphorus Albumin Quality VTE Prophylaxis VTE prophylaxis: pharmacologic ordered (Heparin 5000 units subQ q.12 hours)
[2024-07-19 20:50] LABS: Glucose Point of Care 145 mg/dl (65-105)
[2024-07-19] MEDS: AZITHROMYCIN 500 MG/NS 250 ML 500 MG/250 ML BAG 250 MG IVPB (22:46)
[2024-07-20] VITALS (8 sets, daily range): BP systolic 131–145; BP diastolic 67–78; PULSE 70–88; RESP 16–17; TEMP 36.9–37.1; O2SAT 99–100
[2024-07-20] MEDS: metroNIDAZOLE 500 MG/ISO 100ML 500 MG/100 ML BAG 100 MG IVPB ×5 (00:24→23:04)
[2024-07-20 06:53] LABS: Basophils Percent Auto 0.2 % (0.2-1.2); Eosinophils Absolute Auto 0.2 K/mm3 (0-0.3); Eosinophils Percent Auto 1.1 % (0-4.4); Hematocrit 35.5 % (42.0-52.0); Hemoglobin 11.8 g/dL (14.0-18.0); Immature Granulocyte Absolute 0.05 K/mm3 (0.00-0.031); Immature Granulocyte Percent A 0.4 % (0-0.5); Immature Platelet Fraction Pct 5.8 % (0.9-11.2); Lymphocytes Absolute Auto 3.06 K/mm3 (0.9-3.2); Lymphocytes Percent Auto 22.5 % (18.3-44.2); Mean Corpuscular HGB Conc 33.2 g/dl (32-36); Mean Corpuscular Hemoglobin 28.7 pg (26-34); Mean Corpuscular Volume 86.4 fl (80-100); Mean Platelet Volume 10.5 fl (7.4-10.4); Monocytes Absolute Auto 1.3 K/mm3 (0.1-0.6); Monocytes Percent Auto 9.8 % (2.6-8.5); Platelet Count Result 115 k/mm3 (150-375); Red Blood Count 4.11 M/mm3 (4.6-6.20); Red Cell Distribution Width 14.5 % (11.5-14.5); White Blood Count 13.6 K/mm3 (4.5-10.0)
[2024-07-20 07:03] LABS: Albumin Level 3.3 g/dL (3.5-5.1); Anion Gap 10 mmol/L (4-12); Blood Urea Nitrogen 12 mg/dL (9-20); Carbon Dioxide 19 mmol/L (22-30); Chloride 107 mmol/L (98-107); Estimated CRCL calculation 81 ml/min; Estimated Glomerular Filt Rate > 60; Glucose 124 mg/dL (65-110); Phosphorus 1.5 mg/dL (2.5-4.5); Potassium 2.9 mmol/L (3.4-5.0); Sodium 136 mmol/L (137-145)
[2024-07-20] MEDS: CALCIUM/VITAMIN D 500 MG/5 MCG (200 I.U.) TABLET PO ×3 (08:09→16:28)
[2024-07-20] MEDS: TAMSULOSIN HCL 0.4 MG CAPSULE PO (08:09)
[2024-07-20] MEDS: SIMETHICONE 80 MG TAB.CHEW PO ×4 (08:09→21:11)
[2024-07-20 08:36] LABS: Glucose Point of Care 135 mg/dl (65-105)
[2024-07-20] MEDS: POTASSIUM CHLORIDE INJ 40 MEQ in SODIUM CHLORIDE 0.9% IV 500 ML 130 MEQ IVPB (09:50)
[2024-07-20] MEDS: POTASSIUM/PHOSPHORUS/SODIUM 1.5 GM PACKET 2 PACKET PO (09:53)
[2024-07-20 11:27] LABS: Glucose Point of Care 142 mg/dl (65-105)
[2024-07-20 13:11] LABS: Albumin Level 3.5 g/dL (3.5-5.1); Anion Gap 8 mmol/L (4-12); Blood Urea Nitrogen 12 mg/dL (9-20); Carbon Dioxide 21 mmol/L (22-30); Chloride 105 mmol/L (98-107); Estimated CRCL calculation 83 ml/min; Estimated Glomerular Filt Rate > 60; Glucose 133 mg/dL (65-110); Magnesium 1.3 mg/dL (1.6-2.3); Phosphorus 1.5 mg/dL (2.5-4.5); Potassium 3.3 mmol/L (3.4-5.0); Sodium 134 mmol/L (137-145)
[2024-07-20] MEDS: CALCIUM GLUC 2,000 MG/NS 100ML 2,000 MG/100 ML BAG 100 MG IVPB (15:09)
[2024-07-20] MEDS: MAGNESIUM SULF 2 GM/WATER 50ML 2 GM/50 ML BAG IVPB (16:28)
[2024-07-20 16:30] LABS: Glucose Point of Care 156 mg/dl (65-105)
--- NOTE | 2024-07-20 17:17 | P.PNIM_ITS ---
Progress Note: A&P Assessment and Plan (1) Acute renal failure: Qualifiers: Acute renal failure type: unspecified Qualified Code(s): N17.9 - Acute kidney failure, unspecified Code(s): N17.9 - Acute kidney failure, unspecified Status: Acute (2) BPH with urinary obstruction: Code(s): N40.1 - Benign prostatic hyperplasia with lower urinary tract symptoms; N13.8 - Other obstructive and reflux uropathy Status: Acute (3) Bilateral pneumonia: Qualifiers: Lung location: lower lobe of lung Pneumonia type: due to unspecified organism Qualified Code(s): J18.9 - Pneumonia, unspecified organism Code(s): J18.9 - Pneumonia, unspecified organism Status: Acute (4) Postobstructive diuresis: Code(s): R35.89 - Other polyuria Status: Acute (5) Metabolic acidosis with respiratory alkalosis: Code(s): E87.20 - Acidosis, unspecified; E87.3 - Alkalosis Status: Acute (6) Hyperphosphatemia associated with renal failure: Code(s): E83.39 - Other disorders of phosphorus metabolism; N19 - Unspecified kidney failure Status: Acute (7) Hyperkalemia: Code(s): E87.5 - Hyperkalemia Status: Acute (8) Bladder stone: Code(s): N21.0 - Calculus in bladder Status: Acute (9) Diarrhea: Qualifiers: Diarrhea type: unspecified type Qualified Code(s): R19.7 - Diarrhea, unspecified Code(s): R19.7 - Diarrhea, unspecified Status: Acute (10) Nonadherence to medication: Code(s): Z91.148 - Patient's other noncompliance with medication regimen for other reason Status: Acute (11) Anxiety about treatment: Code(s): R45.89 - Other symptoms and signs involving emotional state Status: Acute Plan The patient has what is likely acute on chronic bladder outlet obstruction due to BPH (plus or minus obstruction with bladder stone). His obstruction has resulted in what is likely acute on chronic kidney injury. Ortega catheter was placed in the ER. Since arriving to the IMU the patient has already had an additional 3.4 L of urine out be a sides the 1.3 L after initial catheter placement. The patient received 2 L fluid bolus in the ER but continues to have marked sinus tachycardia with heart rates between 120-140. He denies any chest pain or cardiac symptoms. The patient does still appear to be intervascular volume depleted an additional 1 L of normal saline bolus has been provided. The patient did have metabolic acidosis with compensatory respiratory alkalosis with pH of 7.3. Since catheter placement repeat electrolyte panel have been obtained and is demonstrated improvement in the patient's potassium down into normal range and significant improvement in his BUN and creatinine with BUN going from 04/05 down to 170 and creatinine decreasing from 20/ down to 14. Will continue patient on bicarb drip at 150 mL an hour. Patient is already demonstrating evidence of postobstructive diuresis. Will need to monitor urine output and make up for the patient's baseline level of dehydration that he has already had with his preceding symptoms of nausea vomiting and keep up with his excessive urine output. Will monitor strict I&O's. Will check urine electrolytes, renal ultrasound and hepatitis panel. Urology and Nephrology have been consulted. Will await further recommendations. Given that the patient's potassium is only marginally elevated I suspect patient likely has some underlying chronic kidney disease associated with his diabetes and has had subsequent acute decompensation with his obstructive uropathy. Unfortunately given the patient has not followed up with a physician in several years this cannot be confirmed. He was hospitalized 2 years ago at [facility]. It may be possible to obtain records to see patient's baseline renal function from that facility if needed. Patient has also been having diarrhea for the last week or so that appears darker black in color. Will check occult blood although GI bleed is less likely given the patient's normal hemoglobin. Will also check C diff given recent antibiotic exposure. Unfortunately diarrhea has been exacerbated by the use of Kayexalate. Likely patient's potassium has now normalized and hopefully will not have to give patient Kayexalate again. CT does not demonstrate any evidence of acute colonic process. However CT did demonstrate bilateral lower lobe infiltrates ground-glass in appearance. The patient is having tachypnea which is most likely due to his respiratory compensation for his metabolic acidosis but he could also have developed pneumonia which may be associated with aspiration given his recent vomiting. He does have marked leukocytosis but no fever. Leukocytosis could be due to pneumonia verses what is causing the patient's diarrhea verses acute look moist reaction. Will place on empiric antibiotic therapy with Rocephin and Flagyl and azithromycin. Will check urine Legionella and pneumococcal antigen. With possible infection, leukocytosis, tachycardia the patient does fit sepsis criteria but lactic acid is normal. Will check procalcitonin. Patient did receive 30 mL/kilos fluid bolus in the ER and an additional L has been administered. Blood cultures have been obtained and are pending. Patient has baseline poorly controlled diabetes with complications in noncompliance with management including not checking his glucoses at home. Will check A1c in a.m.. Will place patient on moderate dose sliding scale insulin with Accu-Cheks a.c. HS. Will change patient's diet to consistent carbohydrate. Patient is quite anxious and restless. Portion of his tachycardia could be due to excess anxiety. Patient is requesting medications for anxiety. I did give order for Xanax but the patient is quite worked up in tremulous when I went back to update him on his repeat labs. He was literally shaking and seemed to be having a acute episode of panic. Subsequently 0.5 mg of IV Ativan was ordered. Importance of adherence with medical therapy and follow-up with providers was discussed in detail with the patient and his at bedside. Repeat renal function panel, magnesium, and CBC have been ordered for a.m. patient is 64 y/o presented with urinary retention most likely 2/2 enlarge prostate and bladder stone causing obstructive and reflux uropathy resulting in HOLLIS with elevated upon arrival BUN/CR 211/21 and CO2 of 7 in metabolic acidosis, Ortega was placed in the ER and patient has been able to urinate patient is been hydrated and sodium bicarb is given and his BUN/Cr and CO2 have improved to 75/4.76 and 15 respectively, his BUN/Scr are near normal, patient is seen by concaving machine operator and urologist further recommendation to follow, patient clinical symptoms have improved, today plan was to give avoiding trial for the patient and Ortega was removed however patient was not able to urinate, patient will be seen by his urologist and concaving machine operator and further recommendation to follow. Subjective Date/time seen: 07/20/24 17:17 Interval history: Nauseated for 1 month H&P-Narrative: 64-year-old male with a past medical history of uncontrolled diabetes mellitus, diabetic peripheral neuropathy and previously undiagnosed BPH who presented to the ER from home via private vehicle due to intermittent nausea vomiting for 1 month. The patient's provides the majority history with patient's permission and the patient supplements history. 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 About 1 month ago he started having difficulty with urination. He stated that for about a week he could not urinate at all. After about a week of this he was able to then start dribbling urine and was having persistent episodes of incontinent throughout the course of the month. On 06/17/2024 He broke down and did a telehealth visit and was prescribed cefuroxime for 7 days. He did not have any improved in his symptoms with antibiotics so he then went to urgent care on June 24 and was told that he likely had BPH and was started on terazosin for 10 days. He did not in notice any improvement in his symptoms. Over the last several days the patient had noted acute the abdominal distension and had been having some loose stools multiple times a day for the last 3 days. He reported that his abdomen felt full but denied having any pain. He has not had any recent ill contacts. He has never had a colonoscopy or routine health screenings. He reports that the nausea has gotten bad enough that he had not had had much to drink over the last couple of days. The patient's stated the patient was reluctant to come to the hospital because he hates hospitals and doctors. The patient's had noticed the patient was having more labored respirations for the last several days. She enlisted the help of her children in convincing the patient to come in for evaluation. In the ER CT was performed which demonstrated markedly distended bladder with a bladder stone, significant BPH, moderate bilateral hydroureter and hydronephrotic changes right kidney stone and ground-glass opacities suggestive of pneumonia in the middle lobe and both lower lobes. The patient's bladder scan demonstrated 2 L of urine a Ortega catheter was placed with immediate return to 1.3 L. He reports that this time that is extremely anxious and is requesting something. He is obviously restless and not happy with being in the hospital. He is also not happy with the fact that he has been having increased diarrhea since receiving Kayexalate. The patient has had longstanding history of type 2 diabetes mellitus at the time of his diagnosis in 2018 ER he had peripheral neuropathy. 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 The patient states he does not take any diabetic medications and has not followed up with a primary care physician in many years. 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 patient is 64 y/o presented with urinary retention most likely 2/2 enlarge prostate and bladder stone causing obstructive and reflux uropathy resulting in HOLLIS with elevated upon arrival BUN/CR 211/21 and CO2 of 7 in metabolic acidosis, Ortega was placed in the ER and patient has been able to urinate patient is been hydrated and sodium bicarb is given and his BUN/Cr and CO2 have improved to 75/4.76 and 15 respectively, his BUN/Scr are near normal, patient is seen by concaving machine operator and urologist further recommendation to follow, patient clinical symptoms have improved, today plan was to give avoiding trial for the patient and Otrega was removed however patient was not able to urinate, patient will be seen by his urologist and concaving machine operator and further recommendation to follow. Review of Systems Review of Systems: 12 systems were reviewed with pertinent positives and negatives per HPI. Except as documented in the HPI, all other systems were reviewed and are negative. Exam Narrative: Patient is comfortable, NAD HEENT: eyes are clear and none icteric LUNGS:CTA HEART: RR S1S2 ABD: BS+, Soft and nontender Lower extremities: no edema SKIN: nonjaundiced Neuro: grossly intact. Objective Data Vital Signs Vital Signs: Vital Signs - 24 hr 07/19/24 18:25 07/19/24 20:00 07/19/24 20:04 Temperature 36.8 C Pulse Rate 76 81 89 Respiratory Rate 16 Blood Pressure 141/81 H Pulse Oximetry 100 Oxygen Delivery 07/19/24 21:06 07/19/24 23:20 07/20/24 00:01 Temperature 36.9 C Pulse Rate 97 79 Respiratory Rate 16 Blood Pressure 131/81 Pulse Oximetry 99 99 Oxygen Delivery Room Air 07/20/24 03:09 07/20/24 04:04 07/20/24 08:00 Temperature 37.1 C Pulse Rate 88 71 Respiratory Rate 16 Blood Pressure 131/67 Pulse Oximetry 99 Oxygen Delivery Room Air 07/20/24 12:00 Temperature 37.0 C Pulse Rate 82 Respiratory Rate 17 Blood Pressure 133/78 Pulse Oximetry 100 Oxygen Delivery Intake/Output Intake/Output: Intake & Output 05/25/25 05/26/25 05/27/25 05/28/25 23:59 23:59 23:59 23:59 Intake Total 1050 8828.3 4310 1720 Output Total 4700 5900 900 4000 Balance -3650 2928.3 3410 -2280 Meds/Results Medications: Active Medications Generic Name Dose Route Start Last Admin Trade Name Freq PRN Reason Stop Dose Admin Acetaminophen 650 mg 07/17/24 23:20 Acetaminophen 325 Mg Tablet PO Q4H PRN Mild Pain (1-3) or Fever Alprazolam 0.25 mg 07/18/24 01:50 07/19/24 21:11 Alprazolam (*Crx) 0.25 Mg Tablet PO 0.25 mg TID PRN Administration Anxiety Calcium Carbonate 500 mg 07/20/24 08:00 07/20/24 16:28 Calcium/Vitamin D 500 Mg/5 Mcg (200 I.U.) Tablet PO 07/22/24 09:00 500 mg TIDWM DAPHNE Administration Dextrose 12.5 gm 07/18/24 02:51 Dextrose 50% 25 Gm/50 Ml Syringe IV PUSH PRN PRN Hypoglycemia Protocol Glucagon 1 mg 07/18/24 02:51 Glucagon For Inj 1 Mg Vial IM PRN PRN Hypoglycemia Protocol Glucose 15 gm 07/18/24 02:51 Glucose Oral Gel 15 Gm Of Glucse In 37.5 Gm Tube PO PRN PRN Hypoglycemia Protocol Heparin Sodium (Porcine) 5,000 units 07/18/24 09:00 07/20/24 08:20 Heparin Sodium 5,000 Units/Ml Vial SUB-Q Not Given Q12HR DAPHNE Dextrose 1,000 mls @ 100 mls/hr 07/18/24 02:51 Dextrose 5% 1,000 Ml IVPB PRN PRN Hypoglycemia Protocol Metronidazole 500 mg in 100 mls @ 100 mls/hr 07/18/24 04:00 07/20/24 13:35 Flagyl 500 Mg/Iso Soln 100 Ml IVPB 100 mls/hr Q6HR DAPHNE Administration Ceftriaxone Sodium 1 gm in 50 mls @ 100 mls/hr 07/18/24 22:00 07/19/24 21:43 Rocephin 1 Gm/Ns 50 Ml IVPB Infused Q24H DAPHNE Infusion Azithromycin 500 mg in 250 mls @ 250 mls/hr 07/18/24 23:00 07/19/24 23:46 Zithromax IVPB Infused Q24H [facility] Infusion Insulin Aspart 3 - 6 units 07/18/24 08:00 07/20/24 16:37 Insulin Aspart (*Bkc) 100 Units/Ml SUB-Q Not Given TIDWM [facility] Protocol Insulin Aspart 1 - 3 units 07/18/24 21:00 07/19/24 21:12 Insulin Aspart (*Bkc) 100 Units/Ml SUB-Q Not Given HS [facility] Protocol Loperamide HCl 2 mg 07/18/24 04:23 Loperamide Hcl 2 Mg Capsule PO PRN PRN Diarrhea Ondansetron HCl 4 mg 07/17/24 23:20 07/19/24 14:24 Ondansetron Inj 4 Mg/2 Ml Vial IV PUSH 4 mg Q4H PRN Administration Nausea Simethicone 80 mg 07/18/24 13:00 07/20/24 16:28 Simethicone 80 Mg Tab.Chew PO 80 mg QID DAPHNE Administration Sodium Phosphate 500 mg 07/20/24 18:00 Potassium Phos/Sodium Phos 250 Mg Tablet PO 07/20/24 18:01 ONCE ONE Tamsulosin HCl 0.4 mg 07/18/24 09:00 07/20/24 08:09 Tamsulosin Hcl 0.4 Mg Capsule PO 0.4 mg QAM [facility] Administration Radiology Results: ITS Impressions Abdomen/Pelvis CT 07/17/24 20:41 IMPRESSION: 1. Grossly distended urinary bladder with urinary bladder stone. 2. Enlarged prostate. 3. Bilateral moderate hydroureter and hydronephrotic changes. 4. Tiny stone in the right kidney midpole. Bilateral renal cysts. 5. Cholelithiasis. 6. No evidence of appendicitis, diverticulitis or intestinal obstruction. 7. Ground glass appearance suggestive of pneumonia in the middle lobe and both lower lobes. Follow-up advised. Chest X-Ray 07/18/24 06:27 IMPRESSION: No focal infiltrate or effusion. Renal Ultrasound 07/19/24 14:01 IMPRESSION: 1. Approximately 2 cm bilateral renal cysts. Otherwise normal kidneys with resolution of prior bilateral hydronephrosis likely related to interval Ortega catheter placement with decompression of the previously distended bladder. Labs Labs: Laboratory Results - last 24 hr 07/19/24 07/20/24 07/20/24 19:49 06:30 08:13 WBC 13.6 H RBC 4.11 L Hgb 11.8 L Hct 35.5 L MCV 86.4 MCH 28.7 MCHC 33.2 RDW 14.5 Plt Count 115 L MPV 10.5 H Immature Gran % (Auto) 0.4 Neut % (Auto) 66.0 Lymph % (Auto) 22.5 Sandoval % (Auto) 9.8 H Eos % (Auto) 1.1 Baso % (Auto) 0.2 Lymph # (Auto) 3.06 Sandoval # (Auto) 1.3 H Eos # (Auto) 0.2 Baso # (Auto) 0.0 Abs Immat Gran (auto) 0.05 H Absolute Neuts (auto) 9.0 H Absolute Nucleated RBC 0.000 Nucleated RBC % 0.0 % Immature Plt Fraction 5.8 Sodium 136 L Potassium 2.9 L Chloride 107 Carbon Dioxide 19 L Anion Gap 10 BUN 12 D Creatinine 0.88 Estim Creat Clear Calc 81 Estimated GFR > 60 Glucose 124 H POC Capillary Glucose 145 H 135 H Calcium 6.0 L Phosphorus 1.5 L Magnesium Albumin 3.3 L 07/20/24 07/20/24 07/20/24 11:10 12:46 16:23 WBC RBC Hgb Hct MCV MCH MCHC RDW Plt Count MPV Immature Gran % (Auto) Neut % (Auto) Lymph % (Auto) Sandoval % (Auto) Eos % (Auto) Baso % (Auto) Lymph # (Auto) Sandoval # (Auto) Eos # (Auto) Baso # (Auto) Abs Immat Gran (auto) Absolute Neuts (auto) Absolute Nucleated RBC Nucleated RBC % % Immature Plt Fraction Sodium 134 L Potassium 3.3 L Chloride 105 Carbon Dioxide 21 L Anion Gap 8 BUN 12 Creatinine 0.85 Estim Creat Clear Calc 83 Estimated GFR > 60 Glucose 133 H POC Capillary Glucose 142 H 156 H Calcium 6.0 L Phosphorus 1.5 L Magnesium 1.3 L Albumin 3.5 Quality VTE Prophylaxis VTE prophylaxis: pharmacologic ordered (Heparin 5000 units subQ q.12 hours)
[2024-07-20] MEDS: POTASSIUM PHOS/SODIUM PHOS 250 MG TABLET 500 MG PO (18:18)
[2024-07-20 20:07] LABS: Glucose Point of Care 172 mg/dl (65-105)
[2024-07-20] MEDS: AZITHROMYCIN 500 MG/NS 250 ML 500 MG/250 ML BAG 250 MG IVPB (21:56)
--- NOTE | 2024-07-20 22:28 | P.PNUR_ITS ---
Progress Note: A&P Assessment and Plan (1) Acute renal failure: Qualifiers: Acute renal failure type: unspecified Qualified Code(s): N17.9 - Acute kidney failure, unspecified Code(s): N17.9 - Acute kidney failure, unspecified Status: Acute Assessment and Plan: Likely due to bladder outlet obstruction from enlarged prostate Renal function continues to improve with bladder decompression cr is down to 0.85 today (2) Hydroureter: Code(s): N13.4 - Hydroureter Status: Acute Assessment and Plan: Hydronephrosis and hydroureter should improve with Ríos drainage of the bladder Plan for outpatient KESHAV within the next few weeks to ensure resolution (3) Acute urinary retention: Code(s): R33.8 - Other retention of urine Status: Acute Assessment and Plan: The bladder was very distended. Patient aware there is likely to be ongoing dysfunction and poor bladder functioning which would preclude successful voiding trial. (4) Bladder stone: Code(s): N21.0 - Calculus in bladder Status: Acute Assessment and Plan: The bladder stone is secondary to the bladder outlet obstruction. It is a minor issue and can be managed when the prostate is managed in the future. (5) Enlarged prostate: Code(s): N40.0 - Benign prostatic hyperplasia without lower urinary tract symptoms Status: Acute Assessment and Plan: Plan outpatient prostate work up. Would not check PSA at this time as it would be artificially elevated. Plan -VT in progress as of a little after 0600. as of 0900, patient hasnt voided yet. He is aware of possibility of replacing catheter. - There is high probability of needing a catheter replaced or of needing to learn clean intermittent catheterization (CIC) prior to discharge, patient is receptive to CIC if necessary - No plan for surgical intervention at this time -Will need to follow up as outpatient for prostate workup and possibly further retention management. Subjective Subjective Date/Time Seen: 07/20/24 22:28 Interval history: patient is 64 y/o presented with urinary retention most likely 2/2 enlarge prostate and bladder stone causing obstructive and reflux uropathy resulting in HOLLIS with elevated upon arrival BUN/CR 211/21 and CO2 of 7 in metabolic acidosis, Ríos was placed in the ER and patient has been able to urinate patient is been hydrated and sodium bicarb is given and his BUN/Cr and CO2 have improved to 75/4.76 and 15 respectively, his BUN/Scr are near normal. today ríos was removed for vt a little after 06. patient reports he hasnt voided yet as of 899. Patient aware may have to replace ríos. Review of Systems Review of Systems: All systems reviewed & are unremarkable except as noted in HPI and below Exam Const: General: cooperative and healthy appearing Orientation/consciousness: oriented to person, oriented to place and oriented to time HENMT: Head: normal to inspection Skin: General skin exam: normal color Neuro: General: oriented to person, oriented to place and oriented to time Objective Data Vital Signs Vital Signs: Vital Signs - 24 hr 07/19/24 23:20 07/20/24 00:01 07/20/24 03:09 Temperature 98.5 F 98.8 F Pulse Rate 97 79 88 Respiratory Rate 16 16 Blood Pressure 131/81 131/67 Pulse Oximetry 99 99 Oxygen Delivery 07/20/24 04:04 07/20/24 08:00 07/20/24 08:00 Temperature Pulse Rate 71 74 Respiratory Rate Blood Pressure Pulse Oximetry Oxygen Delivery Room Air 07/20/24 12:00 07/20/24 12:00 07/20/24 16:00 Temperature 98.6 F Pulse Rate 82 88 70 Respiratory Rate 17 Blood Pressure 133/78 Pulse Oximetry 100 Oxygen Delivery 07/20/24 20:01 Temperature 98.4 F Pulse Rate 82 Respiratory Rate 17 Blood Pressure 145/70 H Pulse Oximetry 100 Oxygen Delivery Intake/Output Intake/Output: Intake & Output 07/17/24 07/18/24 07/19/24 07/20/24 23:59 23:59 23:59 23:59 Intake Total 1050 8828.3 4410 4720 Output Total 4700 5900 900 4950 Balance -3650 2928.3 3510 -230 Meds/Results Medications: Active Medications Generic Name Dose Route Start Last Admin Trade Name Freq PRN Reason Stop Dose Admin Acetaminophen 650 mg 07/17/24 23:20 Acetaminophen 325 Mg Tablet PO Q4H PRN Mild Pain (1-3) or Fever Alprazolam 0.25 mg 07/18/24 01:50 07/19/24 21:11 Alprazolam (*Crx) 0.25 Mg Tablet PO 0.25 mg TID PRN Administration Anxiety Calcium Carbonate 500 mg 07/20/24 08:00 07/20/24 16:28 Calcium/Vitamin D 500 Mg/5 Mcg (200 I.U.) Tablet PO 07/22/24 09:00 500 mg TIDWM DAPHNE Administration Dextrose 12.5 gm 07/18/24 02:51 Dextrose 50% 25 Gm/50 Ml Syringe IV PUSH PRN PRN Hypoglycemia Protocol Glucagon 1 mg 07/18/24 02:51 Glucagon For Inj 1 Mg Vial IM PRN PRN Hypoglycemia Protocol Glucose 15 gm 07/18/24 02:51 Glucose Oral Gel 15 Gm Of Glucse In 37.5 Gm Tube PO PRN PRN Hypoglycemia Protocol Heparin Sodium (Porcine) 5,000 units 07/18/24 09:00 07/20/24 21:10 Heparin Sodium 5,000 Units/Ml Vial SUB-Q Not Given Q12HR DAPHNE Dextrose 1,000 mls @ 100 mls/hr 07/18/24 02:51 Dextrose 5% 1,000 Ml IVPB PRN PRN Hypoglycemia Protocol Metronidazole 500 mg in 100 mls @ 100 mls/hr 07/18/24 04:00 07/20/24 19:40 Flagyl 500 Mg/Iso Soln 100 Ml IVPB Infused Q6HR DAPHNE Infusion Ceftriaxone Sodium 1 gm in 50 mls @ 100 mls/hr 07/18/24 22:00 07/20/24 21:46 Rocephin 1 Gm/Ns 50 Ml IVPB Infused Q24H DAPHNE Infusion Azithromycin 500 mg in 250 mls @ 250 mls/hr 07/18/24 23:00 07/20/24 21:56 Zithromax IVPB 250 mls/hr Q24H DAPHNE Administration Insulin Aspart 3 - 6 units 07/18/24 08:00 07/20/24 16:37 Insulin Aspart (*Bkc) 100 Units/Ml SUB-Q Not Given TIDWM [facility] Protocol Insulin Aspart 1 - 3 units 07/18/24 21:00 07/20/24 21:09 Insulin Aspart (*Bkc) 100 Units/Ml SUB-Q Not Given HS DAPHNE Protocol Loperamide HCl 2 mg 07/18/24 04:23 Loperamide Hcl 2 Mg Capsule PO PRN PRN Diarrhea Ondansetron HCl 4 mg 07/17/24 23:20 07/19/24 14:24 Ondansetron Inj 4 Mg/2 Ml Vial IV PUSH 4 mg Q4H PRN Administration Nausea Simethicone 80 mg 07/18/24 13:00 07/20/24 21:11 Simethicone 80 Mg Tab.Chew PO 80 mg QID DAPHNE Administration Tamsulosin HCl 0.4 mg 07/18/24 09:00 07/20/24 08:09 Tamsulosin Hcl 0.4 Mg Capsule PO 0.4 mg QAM DAPHNE Administration Radiology Results: ITS Impressions Abdomen/Pelvis CT 07/17/24 20:41 IMPRESSION: 1. Grossly distended urinary bladder with urinary bladder stone. 2. Enlarged prostate. 3. Bilateral moderate hydroureter and hydronephrotic changes. 4. Tiny stone in the right kidney midpole. Bilateral renal cysts. 5. Cholelithiasis. 6. No evidence of appendicitis, diverticulitis or intestinal obstruction. 7. Ground glass appearance suggestive of pneumonia in the middle lobe and both lower lobes. Follow-up advised. Chest X-Ray 07/18/24 06:27 IMPRESSION: No focal infiltrate or effusion. Renal Ultrasound 07/19/24 14:01 IMPRESSION: 1. Approximately 2 cm bilateral renal cysts. Otherwise normal kidneys with resolution of prior bilateral hydronephrosis likely related to interval Ríos catheter placement with decompression of the previously distended bladder. Labs Labs: Laboratory Results - last 24 hr 07/20/24 07/20/24 07/20/24 06:30 08:13 11:10 WBC 13.6 H RBC 4.11 L Hgb 11.8 L Hct 35.5 L MCV 86.4 MCH 28.7 MCHC 33.2 RDW 14.5 Plt Count 115 L MPV 10.5 H Immature Gran % (Auto) 0.4 Neut % (Auto) 66.0 Lymph % (Auto) 22.5 [place] % (Auto) 9.8 H Eos % (Auto) 1.1 Baso % (Auto) 0.2 Lymph # (Auto) 3.06 [place] # (Auto) 1.3 H Eos # (Auto) 0.2 Baso # (Auto) 0.0 Abs Immat Gran (auto) 0.05 H Absolute Neuts (auto) 9.0 H Absolute Nucleated RBC 0.000 Nucleated RBC % 0.0 % Immature Plt Fraction 5.8 Sodium 136 L Potassium 2.9 L Chloride 107 Carbon Dioxide 19 L Anion Gap 10 BUN 12 D Creatinine 0.88 Estim Creat Clear Calc 81 Estimated GFR > 60 Glucose 124 H POC Capillary Glucose 135 H 142 H Calcium 6.0 L Phosphorus 1.5 L Magnesium Albumin 3.3 L 07/20/24 07/20/24 07/20/24 12:46 16:23 20:04 WBC RBC Hgb Hct MCV MCH MCHC RDW Plt Count MPV Immature Gran % (Auto) Neut % (Auto) Lymph % (Auto) [place] % (Auto) Eos % (Auto) Baso % (Auto) Lymph # (Auto) [place] # (Auto) Eos # (Auto) Baso # (Auto) Abs Immat Gran (auto) Absolute Neuts (auto) Absolute Nucleated RBC Nucleated RBC % % Immature Plt Fraction Sodium 134 L Potassium 3.3 L Chloride 105 Carbon Dioxide 21 L Anion Gap 8 BUN 12 Creatinine 0.85 Estim Creat Clear Calc 83 Estimated GFR > 60 Glucose 133 H POC Capillary Glucose 156 H 172 H Calcium 6.0 L Phosphorus 1.5 L Magnesium 1.3 L Albumin 3.5
[2024-07-21] VITALS (10 sets, daily range): BP systolic 108–141; BP diastolic 59–75; PULSE 74–96; RESP 16–18; TEMP 36.8–37.4; O2SAT 96–100
[2024-07-21] MEDS: metroNIDAZOLE 500 MG/ISO 100ML 500 MG/100 ML BAG 100 MG IVPB ×2 (05:55→12:10)
[2024-07-21 06:51] LABS: Basophils Percent Auto 0.4 % (0.2-1.2); Eosinophils Absolute Auto 0.3 K/mm3 (0-0.3); Eosinophils Percent Auto 2.8 % (0-4.4); Hematocrit 36.3 % (42.0-52.0); Immature Granulocyte Absolute 0.04 K/mm3 (0.00-0.031); Immature Granulocyte Percent A 0.4 % (0-0.5); Immature Platelet Fraction Pct 5.5 % (0.9-11.2); Lymphocytes Absolute Auto 2.69 K/mm3 (0.9-3.2); Lymphocytes Percent Auto 27.7 % (18.3-44.2); Mean Corpuscular HGB Conc 33.1 g/dl (32-36); Mean Corpuscular Hemoglobin 28.2 pg (26-34); Mean Corpuscular Volume 85.2 fl (80-100); Mean Platelet Volume 10.8 fl (7.4-10.4); Monocytes Percent Auto 10.3 % (2.6-8.5); Neutrophils Absolute Auto 5.7 K/mm3 (1.3-6.7); Neutrophils Percent Auto 58.4 % (45.5-73.1); Platelet Count Result 115 k/mm3 (150-375); Red Blood Count 4.26 M/mm3 (4.6-6.20); Red Cell Distribution Width 14.2 % (11.5-14.5); White Blood Count 9.7 K/mm3 (4.5-10.0)
[2024-07-21 07:08] LABS: Albumin Level 3.4 g/dL (3.5-5.1); Anion Gap 9 mmol/L (4-12); Blood Urea Nitrogen 10 mg/dL (9-20); Calcium 5.9 mg/dL (8.4-10.2); Carbon Dioxide 20 mmol/L (22-30); Chloride 104 mmol/L (98-107); Estimated CRCL calculation 89 ml/min; Estimated Glomerular Filt Rate > 60; Glucose 129 mg/dL (65-110); Phosphorus 1.5 mg/dL (2.5-4.5); Potassium 3.1 mmol/L (3.4-5.0); Sodium 133 mmol/L (137-145)
[2024-07-21 07:42] LABS: Glucose Point of Care 191 mg/dl (65-105)
[2024-07-21] MEDS: CALCIUM/VITAMIN D 500 MG/5 MCG (200 I.U.) TABLET PO (08:07)
[2024-07-21] MEDS: TAMSULOSIN HCL 0.4 MG CAPSULE PO (08:07)
[2024-07-21] MEDS: SIMETHICONE 80 MG TAB.CHEW PO ×4 (08:07→22:00)
[2024-07-21 08:40] LABS: Magnesium 1.5 mg/dL (1.6-2.3)
[2024-07-21] MEDS: MAGNESIUM SULF 2 GM/WATER 50ML 2 GM/50 ML BAG IVPB (09:30)
[2024-07-21] MEDS: POTASSIUM/PHOSPHORUS/SODIUM 1.5 GM PACKET 2 PACKET PO (10:41)
[2024-07-21 11:36] LABS: Glucose Point of Care 226 mg/dl (65-105)
[2024-07-21] MEDS: INSULIN ASPART (*BKC) 100 UNITS/ML SUB-Q ×2 (12:31→16:44)
[2024-07-21] MEDS: CALCIUM GLUC 2,000 MG/NS 100ML 2,000 MG/100 ML BAG 100 MG IVPB (13:32)
--- NOTE | 2024-07-21 14:33 | P.PNNP_ITS ---
Progress Note: A&P Assessment and Plan (1) Acute kidney injury: Code(s): N17.9 - Acute kidney failure, unspecified Status: Resolved Assessment and Plan: * resolved * as noted by admission labs * previous creatinine values noted * no recent labs available * creatinine was 1.06mg/dl in April 2022 ([facility] labs) * creatinine in 2019 (by [facility]) was normal * improvement noted with ríos catheter placement * repeat renal ultrasound to ensure improvement in hydronephrosis (seen on admission CT scan) * follow trend of repeat labs and UOP (2) BPH with urinary obstruction: Code(s): N40.1 - Benign prostatic hyperplasia with lower urinary tract symptoms; N13.8 - Other obstructive and reflux uropathy Status: Acute Assessment and Plan: * as noted by admission CT scan: * grossly distended urinary bladder with urinary bladder stone * enlarged prostate * bilateral moderate hydroureter and hydronephrotic changes * confirmed by bladder scan in ER * s/p ríos catheter placement * significant UOP noted consistent with postobstructive diuresis following admission * Urology recommendations noted (3) Electrolyte depletion: Code(s): E87.8 - Other disorders of electrolyte and fluid balance, not elsewhere classified Status: Acute Assessment and Plan: * noted issues with regard to low potassium, low phosphorus, low calcium, and low magnesium * upon further questions, the patient states he was not eating very well for the last several weeks prior to presentation to the hospital * hence, I suspect total body store depletion of his K+, Phos, Ca++ and Mg * continue aggressive electrolyte repletion as needed * since all of these electrolytes are inter-related, each will likely remain low until each one is repleted * check Vitamin D level * follow trend of electrolytes (4) Metabolic acidosis: Code(s): E87.20 - Acidosis, unspecified Status: Resolved Assessment and Plan: * resolved * due to #1 * off bicarb gtt/fluids * follow trend of CO2 levels (5) Bilateral pneumonia: Qualifiers: Lung location: lower lobe of lung Pneumonia type: due to unspecified organism Qualified Code(s): J18.9 - Pneumonia, unspecified organism Code(s): J18.9 - Pneumonia, unspecified organism Status: Acute Assessment and Plan: * as noted by admission CT scan: * ground glass appearance suggestive of pneumonia in the middle lobe and both lower lobes * follow culture data * follow respiratory statuis * on antibiotics (6) Diabetes: Code(s): E11.9 - Type 2 diabetes mellitus without complications Status: Chronic Assessment and Plan: * was not monitoring prior to admission * A1c elevated at 8.4 * follow accu-cheks * glycemic control per hospitalist Not much else to add -- will continue to follow from a distance. Subjective Date/time seen: 07/21/24 14:33 Interval history: Follow-up for acute kidney injury/acute renal failure. Called to see patient again regarding electrolyte deficiency - hypokalemia, hypophosphatemia, hypocalcemia, and hypomagnesemia as noted in the last few days ; renal function/creatinine has remained stable at this time; no other apparent distress noted. Exam Narrative: General: WD/WN Caucasina male in NAD Heart: normal S1 and S2; no rub Lungs: clear to auscultation Abdomen: soft, nontender, nondistended, positive bowel sounds Extremities: no cyanosis or clubbing; no edema Skin: warm and intact Objective Data Vital Signs Vital Signs: Vital Signs Temp Pulse Resp BP Pulse Ox O2 Del Method 07/21/24 12:00 98.3 F 91 17 131/75 100 07/21/24 09:20 100 Room Air 07/21/24 08:00 96 07/21/24 08:00 Room Air 07/21/24 04:36 98.4 F 78 16 108/63 100 07/21/24 04:00 74 07/21/24 00:04 98.2 F 80 16 127/59 L 100 07/21/24 00:00 77 Intake/Output Intake/Output: Intake & Output 07/18/24 07/19/24 07/20/24 07/21/24 23:59 23:59 23:59 23:59 Intake Total 8828.3 4410 4970 3540 Output Total 5900 900 4950 4050 Balance 2928.3 3510 20 -510 Meds/Results Medications: Active Medications Generic Name Dose Route Start Last Admin Trade Name Freq PRN Reason Stop Dose Admin Acetaminophen 650 mg 07/17/24 23:20 Acetaminophen 325 Mg Tablet PO Q4H PRN Mild Pain (1-3) or Fever Alprazolam 0.25 mg 07/18/24 01:50 07/19/24 21:11 Alprazolam (*Crx) 0.25 Mg Tablet PO 0.25 mg TID PRN Administration Anxiety Amoxicillin/Clavulanate Potassium 1 tablet 07/21/24 21:00 Amoxicillin/Clavulanate K 875-125 Mg Tab PO 07/24/24 09:01 Q12HR DAPHNE Calcium Carbonate 1,500 mg 07/21/24 21:00 Calcium/Vitamin D 500 Mg/5 Mcg (200 I.U.) Tablet PO 1000,1500,2100 DAPHNE Dextrose 12.5 gm 07/18/24 02:51 Dextrose 50% 25 Gm/50 Ml Syringe IV PUSH PRN PRN Hypoglycemia Protocol Glucagon 1 mg 07/18/24 02:51 Glucagon For Inj 1 Mg Vial IM PRN PRN Hypoglycemia Protocol Glucose 15 gm 07/18/24 02:51 Glucose Oral Gel 15 Gm Of Glucse In 37.5 Gm Tube PO PRN PRN Hypoglycemia Protocol Heparin Sodium (Porcine) 5,000 units 07/18/24 09:00 07/21/24 08:08 Heparin Sodium 5,000 Units/Ml Vial SUB-Q Not Given Q12HR [facility] Dextrose 1,000 mls @ 100 mls/hr 07/18/24 02:51 Dextrose 5% 1,000 Ml IVPB PRN PRN Hypoglycemia Protocol Insulin Aspart 3 - 6 units 07/18/24 08:00 07/21/24 16:44 Insulin Aspart (*Bkc) 100 Units/Ml SUB-Q 3 units TIDWM DAPHNE Administration Protocol Insulin Aspart 1 - 3 units 07/18/24 21:00 07/20/24 21:09 Insulin Aspart (*Bkc) 100 Units/Ml SUB-Q Not Given HS [facility] Protocol Loperamide HCl 2 mg 07/18/24 04:23 Loperamide Hcl 2 Mg Capsule PO PRN PRN Diarrhea Ondansetron HCl 4 mg 07/17/24 23:20 07/19/24 14:24 Ondansetron Inj 4 Mg/2 Ml Vial IV PUSH 4 mg Q4H PRN Administration Nausea Simethicone 80 mg 07/18/24 13:00 07/21/24 16:38 Simethicone 80 Mg Tab.Chew PO 80 mg QID DAPHNE Administration Sodium Phosphate 250 mg 07/22/24 08:00 Potassium Phos/Sodium Phos 250 Mg Tablet PO DAILY DAPHNE Tamsulosin HCl 0.4 mg 07/18/24 09:00 07/21/24 08:07 Tamsulosin Hcl 0.4 Mg Capsule PO 0.4 mg QAM DAPHNE Administration Radiology Results: ITS Impressions Abdomen/Pelvis CT 07/17/24 20:41 IMPRESSION: 1. Grossly distended urinary bladder with urinary bladder stone. 2. Enlarged prostate. 3. Bilateral moderate hydroureter and hydronephrotic changes. 4. Tiny stone in the right kidney midpole. Bilateral renal cysts. 5. Cholelithiasis. 6. No evidence of appendicitis, diverticulitis or intestinal obstruction. 7. Ground glass appearance suggestive of pneumonia in the middle lobe and both lower lobes. Follow-up advised. Chest X-Ray 07/18/24 06:27 IMPRESSION: No focal infiltrate or effusion. Renal Ultrasound 07/19/24 14:01 IMPRESSION: 1. Approximately 2 cm bilateral renal cysts. Otherwise normal kidneys with resolution of prior bilateral hydronephrosis likely related to interval Ríos catheter placement with decompression of the previously distended bladder. Labs Labs: Laboratory Results - last 24 hr 07/21/24 06:42 WBC 9.7 Hgb 12.0 L Hct 36.3 L Plt Count 115 L Sodium 133 L Potassium 3.1 L Chloride 104 Carbon Dioxide 20 L Anion Gap 9 BUN 10 Creatinine 0.79 Estim Creat Clear Calc 89 Estimated GFR > 60 Glucose 129 H Calcium 5.9 L* Phosphorus 1.5 L Magnesium 1.5 L Albumin 3.4 L
--- NOTE | 2024-07-21 14:50 | PM.IMPN ---
Progress Note: A&P Assessment and Plan (1) Acute renal failure: Qualifiers: Acute renal failure type: unspecified Qualified Code(s): N17.9 - Acute kidney failure, unspecified Code(s): N17.9 - Acute kidney failure, unspecified Status: Acute (2) BPH with urinary obstruction: Code(s): N40.1 - Benign prostatic hyperplasia with lower urinary tract symptoms; N13.8 - Other obstructive and reflux uropathy Status: Acute (3) Bilateral pneumonia: Qualifiers: Lung location: lower lobe of lung Pneumonia type: due to unspecified organism Qualified Code(s): J18.9 - Pneumonia, unspecified organism Code(s): J18.9 - Pneumonia, unspecified organism Status: Acute (4) Postobstructive diuresis: Code(s): R35.89 - Other polyuria Status: Acute (5) Metabolic acidosis with respiratory alkalosis: Code(s): E87.20 - Acidosis, unspecified; E87.3 - Alkalosis Status: Acute (6) Hyperphosphatemia associated with renal failure: Code(s): E83.39 - Other disorders of phosphorus metabolism; N19 - Unspecified kidney failure Status: Acute (7) Hyperkalemia: Code(s): E87.5 - Hyperkalemia Status: Acute (8) Bladder stone: Code(s): N21.0 - Calculus in bladder Status: Acute (9) Diarrhea: Qualifiers: Diarrhea type: unspecified type Qualified Code(s): R19.7 - Diarrhea, unspecified Code(s): R19.7 - Diarrhea, unspecified Status: Acute (10) Nonadherence to medication: Code(s): Z91.148 - Patient's other noncompliance with medication regimen for other reason Status: Acute (11) Anxiety about treatment: Code(s): R45.89 - Other symptoms and signs involving emotional state Status: Acute Plan The patient has what is likely acute on chronic bladder outlet obstruction due to BPH (plus or minus obstruction with bladder stone). His obstruction has resulted in what is likely acute on chronic kidney injury. Ortega catheter was placed in the ER. Since arriving to the IMU the patient has already had an additional 3.4 L of urine out be a sides the 1.3 L after initial catheter placement. The patient received 2 L fluid bolus in the ER but continues to have marked sinus tachycardia with heart rates between 120-140. He denies any chest pain or cardiac symptoms. The patient does still appear to be intervascular volume depleted an additional 1 L of normal saline bolus has been provided. The patient did have metabolic acidosis with compensatory respiratory alkalosis with pH of 7.3. Since catheter placement repeat electrolyte panel have been obtained and is demonstrated improvement in the patient's potassium down into normal range and significant improvement in his BUN and creatinine with BUN going from 04/05 down to 170 and creatinine decreasing from 20/ down to 14. Will continue patient on bicarb drip at 150 mL an hour. Patient is already demonstrating evidence of postobstructive diuresis. Will need to monitor urine output and make up for the patient's baseline level of dehydration that he has already had with his preceding symptoms of nausea vomiting and keep up with his excessive urine output. Will monitor strict I&O's. Will check urine electrolytes, renal ultrasound and hepatitis panel. Urology and Nephrology have been consulted. Will await further recommendations. Given that the patient's potassium is only marginally elevated I suspect patient likely has some underlying chronic kidney disease associated with his diabetes and has had subsequent acute decompensation with his obstructive uropathy. Unfortunately given the patient has not followed up with a physician in several years this cannot be confirmed. He was hospitalized 2 years ago at [facility]. It may be possible to obtain records to see patient's baseline renal function from that facility if needed. Patient has also been having diarrhea for the last week or so that appears darker black in color. Will check occult blood although GI bleed is less likely given the patient's normal hemoglobin. Will also check C diff given recent antibiotic exposure. Unfortunately diarrhea has been exacerbated by the use of Kayexalate. Likely patient's potassium has now normalized and hopefully will not have to give patient Kayexalate again. CT does not demonstrate any evidence of acute colonic process. However CT did demonstrate bilateral lower lobe infiltrates ground-glass in appearance. The patient is having tachypnea which is most likely due to his respiratory compensation for his metabolic acidosis but he could also have developed pneumonia which may be associated with aspiration given his recent vomiting. He does have marked leukocytosis but no fever. Leukocytosis could be due to pneumonia verses what is causing the patient's diarrhea verses acute look moist reaction. Will place on empiric antibiotic therapy with Rocephin and Flagyl and azithromycin. Will check urine Legionella and pneumococcal antigen. With possible infection, leukocytosis, tachycardia the patient does fit sepsis criteria but lactic acid is normal. Will check procalcitonin. Patient did receive 30 mL/kilos fluid bolus in the ER and an additional L has been administered. Blood cultures have been obtained and are pending. Patient has baseline poorly controlled diabetes with complications in noncompliance with management including not checking his glucoses at home. Will check A1c in a.m.. Will place patient on moderate dose sliding scale insulin with Accu-Cheks a.c. HS. Will change patient's diet to consistent carbohydrate. Patient is quite anxious and restless. Portion of his tachycardia could be due to excess anxiety. Patient is requesting medications for anxiety. I did give order for Xanax but the patient is quite worked up in tremulous when I went back to update him on his repeat labs. He was literally shaking and seemed to be having a acute episode of panic. Subsequently 0.5 mg of IV Ativan was ordered. Importance of adherence with medical therapy and follow-up with providers was discussed in detail with the patient and his at bedside. Repeat renal function panel, magnesium, and CBC have been ordered for a.m. patient is 64 y/o presented with urinary retention most likely 2/2 enlarge prostate and bladder stone causing obstructive and reflux uropathy resulting in HOLLIS with elevated upon arrival BUN/CR 211/21 and CO2 of 7 in metabolic acidosis, Ortega was placed in the ER and patient has been able to urinate patient is been hydrated and sodium bicarb is given and his BUN/Cr and CO2 have improved to 75/4.76 and 15 respectively, his BUN/Scr are near normal, patient is seen by machine plug shaper and urologist further recommendation to follow, patient clinical symptoms have improved, plan was to give avoiding trial for the patient and Ortega was removed however patient was not able to urinate, patient was seen by his urologist suspect patient will have to go home with Ortega and will have outside avoiding trial, patient kidney function has improved close to normal but electrolytes not normal, we are monitoring and supplementing, seen by machine plug shaper and further recommendation to follow. Subjective Date/time seen: 07/21/24 14:50 Interval history: Nauseated for 1 month H&P-Narrative: 64-year-old male with a past medical history of uncontrolled diabetes mellitus, diabetic peripheral neuropathy and previously undiagnosed BPH who presented to the ER from home via private vehicle due to intermittent nausea vomiting for 1 month. The patient's provides the majority history with patient's permission and the patient supplements history. 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 About 1 month ago he started having difficulty with urination. He stated that for about a week he could not urinate at all. After about a week of this he was able to then start dribbling urine and was having persistent episodes of incontinent throughout the course of the month. On 06/17/2024 He broke down and did a telehealth visit and was prescribed cefuroxime for 7 days. He did not have any improved in his symptoms with antibiotics so he then went to urgent care on June 24 and was told that he likely had BPH and was started on terazosin for 10 days. He did not in notice any improvement in his symptoms. Over the last several days the patient had noted acute the abdominal distension and had been having some loose stools multiple times a day for the last 3 days. He reported that his abdomen felt full but denied having any pain. He has not had any recent ill contacts. He has never had a colonoscopy or routine health screenings. He reports that the nausea has gotten bad enough that he had not had had much to drink over the last couple of days. The patient's stated the patient was reluctant to come to the hospital because he hates hospitals and doctors. The patient's had noticed the patient was having more labored respirations for the last several days. She enlisted the help of her children in convincing the patient to come in for evaluation. In the ER CT was performed which demonstrated markedly distended bladder with a bladder stone, significant BPH, moderate bilateral hydroureter and hydronephrotic changes right kidney stone and ground-glass opacities suggestive of pneumonia in the middle lobe and both lower lobes. The patient's bladder scan demonstrated 2 L of urine a Ortega catheter was placed with immediate return to 1.3 L. He reports that this time that is extremely anxious and is requesting something. He is obviously restless and not happy with being in the hospital. He is also not happy with the fact that he has been having increased diarrhea since receiving Kayexalate. The patient has had longstanding history of type 2 diabetes mellitus at the time of his diagnosis in 2018 ER he had peripheral neuropathy. 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 The patient states he does not take any diabetic medications and has not followed up with a primary care physician in many years. 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 patient is 64 y/o presented with urinary retention most likely 2/2 enlarge prostate and bladder stone causing obstructive and reflux uropathy resulting in HOLLIS with elevated upon arrival BUN/CR 211/21 and CO2 of 7 in metabolic acidosis, Ortega was placed in the ER and patient has been able to urinate patient is been hydrated and sodium bicarb is given and his BUN/Cr and CO2 have improved to 75/4.76 and 15 respectively, his BUN/Scr are near normal, patient is seen by machine plug shaper and urologist further recommendation to follow, patient clinical symptoms have improved, plan was to give avoiding trial for the patient and Ortega was removed however patient was not able to urinate, patient was seen by his urologist suspect patient will have to go home with Ortega and will have outside avoiding trial, patient kidney function has improved close to normal but electrolytes not normal, we are monitoring and supplementing, seen by machine plug shaper and further recommendation to follow. Review of Systems Review of Systems: 12 systems were reviewed with pertinent positives and negatives per HPI. Except as documented in the HPI, all other systems were reviewed and are negative. Exam Narrative: Patient is comfortable, NAD HEENT: eyes are clear and none icteric LUNGS:CTA HEART: RR S1S2 ABD: BS+, Soft and nontender Lower extremities: no edema SKIN: nonjaundiced Neuro: grossly intact. Objective Data Vital Signs Vital Signs: Vital Signs - 24 hr 07/20/24 16:00 07/20/24 20:00 07/20/24 20:00 Temperature Pulse Rate 70 80 78 Respiratory Rate 16 Blood Pressure Pulse Oximetry 100 Oxygen Delivery Room Air 07/20/24 20:01 07/21/24 00:00 07/21/24 00:04 Temperature 36.9 C 36.8 C Pulse Rate 82 77 80 Respiratory Rate 17 16 Blood Pressure 145/70 H 127/59 L Pulse Oximetry 100 100 Oxygen Delivery 07/21/24 04:00 07/21/24 04:36 07/21/24 09:20 Temperature 36.9 C Pulse Rate 74 78 Respiratory Rate 16 Blood Pressure 108/63 Pulse Oximetry 100 100 Oxygen Delivery Room Air 07/21/24 12:00 Temperature 36.8 C Pulse Rate 91 Respiratory Rate 17 Blood Pressure 131/75 Pulse Oximetry 100 Oxygen Delivery Intake/Output Intake/Output: Intake & Output 07/18/24 07/19/24 07/20/24 07/21/24 23:59 23:59 23:59 23:59 Intake Total 8828.3 4410 4970 2160 Output Total 5900 900 4950 2850 Balance 2928.3 3510 20 690 Meds/Results Medications: Active Medications Generic Name Dose Route Start Last Admin Trade Name Freq PRN Reason Stop Dose Admin Acetaminophen 650 mg 07/17/24 23:20 Acetaminophen 325 Mg Tablet PO Q4H PRN Mild Pain (1-3) or Fever Alprazolam 0.25 mg 07/18/24 01:50 07/19/24 21:11 Alprazolam (*Crx) 0.25 Mg Tablet PO 0.25 mg TID PRN Administration Anxiety Amoxicillin/Clavulanate Potassium 1 tablet 07/21/24 21:00 Amoxicillin/Clavulanate K 875-125 Mg Tab PO 07/24/24 09:01 Q12HR DAPHNE Azithromycin 500 mg 07/21/24 21:00 Azithromycin 250 Mg Tablet PO 07/21/24 21:01 ONCE ONE Calcium Carbonate 1,000 mg 07/21/24 15:00 Calcium/Vitamin D 500 Mg/5 Mcg (200 I.U.) Tablet PO 1000,1500,2100 DAPHNE Dextrose 12.5 gm 07/18/24 02:51 Dextrose 50% 25 Gm/50 Ml Syringe IV PUSH PRN PRN Hypoglycemia Protocol Glucagon 1 mg 07/18/24 02:51 Glucagon For Inj 1 Mg Vial IM PRN PRN Hypoglycemia Protocol Glucose 15 gm 07/18/24 02:51 Glucose Oral Gel 15 Gm Of Glucse In 37.5 Gm Tube PO PRN PRN Hypoglycemia Protocol Heparin Sodium (Porcine) 5,000 units 07/18/24 09:00 07/21/24 08:08 Heparin Sodium 5,000 Units/Ml Vial SUB-Q Not Given Q12HR DAPHNE Dextrose 1,000 mls @ 100 mls/hr 07/18/24 02:51 Dextrose 5% 1,000 Ml IVPB PRN PRN Hypoglycemia Protocol Insulin Aspart 3 - 6 units 07/18/24 08:00 07/21/24 12:31 Insulin Aspart (*Bkc) 100 Units/Ml SUB-Q 3 units TIDWM DAPHNE Administration Protocol Insulin Aspart 1 - 3 units 07/18/24 21:00 07/20/24 21:09 Insulin Aspart (*Bkc) 100 Units/Ml SUB-Q Not Given HS DAPHNE Protocol Loperamide HCl 2 mg 07/18/24 04:23 Loperamide Hcl 2 Mg Capsule PO PRN PRN Diarrhea Ondansetron HCl 4 mg 07/17/24 23:20 07/19/24 14:24 Ondansetron Inj 4 Mg/2 Ml Vial IV PUSH 4 mg Q4H PRN Administration Nausea Simethicone 80 mg 07/18/24 13:00 07/21/24 12:31 Simethicone 80 Mg Tab.Chew PO 80 mg QID DAPHNE Administration Tamsulosin HCl 0.4 mg 07/18/24 09:00 07/21/24 08:07 Tamsulosin Hcl 0.4 Mg Capsule PO 0.4 mg QAM DAPHNE Administration Radiology Results: ITS Impressions Abdomen/Pelvis CT 07/17/24 20:41 IMPRESSION: 1. Grossly distended urinary bladder with urinary bladder stone. 2. Enlarged prostate. 3. Bilateral moderate hydroureter and hydronephrotic changes. 4. Tiny stone in the right kidney midpole. Bilateral renal cysts. 5. Cholelithiasis. 6. No evidence of appendicitis, diverticulitis or intestinal obstruction. 7. Ground glass appearance suggestive of pneumonia in the middle lobe and both lower lobes. Follow-up advised. Chest X-Ray 07/18/24 06:27 IMPRESSION: No focal infiltrate or effusion. Renal Ultrasound 07/19/24 14:01 IMPRESSION: 1. Approximately 2 cm bilateral renal cysts. Otherwise normal kidneys with resolution of prior bilateral hydronephrosis likely related to interval Ortega catheter placement with decompression of the previously distended bladder. Labs Labs: Laboratory Results - last 24 hr 07/20/24 07/20/24 07/21/24 16:23 20:04 06:40 WBC RBC Hgb Hct MCV MCH MCHC RDW Plt Count MPV Immature Gran % (Auto) Neut % (Auto) Lymph % (Auto) [place] % (Auto) Eos % (Auto) Baso % (Auto) Lymph # (Auto) [place] # (Auto) Eos # (Auto) Baso # (Auto) Abs Immat Gran (auto) Absolute Neuts (auto) Absolute Nucleated RBC Nucleated RBC % % Immature Plt Fraction Sodium Potassium Chloride Carbon Dioxide Anion Gap BUN Creatinine Estim Creat Clear Calc Estimated GFR Glucose POC Capillary Glucose 156 H 172 H Calcium Phosphorus Magnesium 1.5 L Albumin 07/21/24 07/21/24 07/21/24 06:42 07:31 11:30 WBC 9.7 RBC 4.26 L Hgb 12.0 L Hct 36.3 L MCV 85.2 MCH 28.2 MCHC 33.1 RDW 14.2 Plt Count 115 L MPV 10.8 H Immature Gran % (Auto) 0.4 Neut % (Auto) 58.4 Lymph % (Auto) 27.7 [place] % (Auto) 10.3 H Eos % (Auto) 2.8 Baso % (Auto) 0.4 Lymph # (Auto) 2.69 [place] # (Auto) 1.0 H Eos # (Auto) 0.3 Baso # (Auto) 0.0 Abs Immat Gran (auto) 0.04 H Absolute Neuts (auto) 5.7 Absolute Nucleated RBC 0.000 Nucleated RBC % 0.0 % Immature Plt Fraction 5.5 Sodium 133 L Potassium 3.1 L Chloride 104 Carbon Dioxide 20 L Anion Gap 9 BUN 10 Creatinine 0.79 Estim Creat Clear Calc 89 Estimated GFR > 60 Glucose 129 H POC Capillary Glucose 191 H 226 H Calcium 5.9 L* Phosphorus 1.5 L Magnesium Albumin 3.4 L Quality VTE Prophylaxis VTE prophylaxis: pharmacologic ordered (Heparin 5000 units subQ q.12 hours)
[2024-07-21 15:23] LABS: Pneumococcal Antigen Urine NOT DETECTED
--- NOTE | 2024-07-21 15:57 | WPDUROPN2 ---
Progress Note: A&P Assessment and Plan (1) Acute renal failure: Qualifiers: Acute renal failure type: unspecified Qualified Code(s): N17.9 - Acute kidney failure, unspecified Code(s): N17.9 - Acute kidney failure, unspecified Status: Acute Assessment and Plan: Likely due to bladder outlet obstruction from enlarged prostate Renal function continues to improve with bladder decompression cr is down to 0.79 today (2) Hydroureter: Code(s): N13.4 - Hydroureter Status: Acute Assessment and Plan: Hydronephrosis and hydroureter should improve with Ríos drainage of the bladder Plan for outpatient KESHAV within the next few weeks to ensure resolution (3) Acute urinary retention: Code(s): R33.8 - Other retention of urine Status: Acute Assessment and Plan: The bladder was very distended. Patient aware there is likely to be ongoing dysfunction and poor bladder functioning which would preclude successful voiding trial. (4) Bladder stone: Code(s): N21.0 - Calculus in bladder Status: Acute Assessment and Plan: The bladder stone is secondary to the bladder outlet obstruction. It is a minor issue and can be managed when the prostate is managed in the future. (5) Enlarged prostate: Code(s): N40.0 - Benign prostatic hyperplasia without lower urinary tract symptoms Status: Acute Assessment and Plan: Plan outpatient prostate work up. Would not check PSA at this time as it would be artificially elevated. Plan - VT failed yesterday and ríos was replaced. Patient aware he will go home with the ríos and follow up in the office in the next 1-2 weeks. - No plan for surgical intervention at this time -Will need to follow up as outpatient for prostate workup and possibly further retention management. Subjective Subjective Date/Time Seen: 07/21/24 15:57 Interval history: 64y old male that presented with bladder outlet obstruction and retention. VT yesterday failed and he had to have ríos replaced. He reports he never felt the urge to urinate at all during the trial. The nurse reports after replacing the ríos, he had 900ml into the bag. Patient to receive electrolyte replacements before being discharged tomorrow per primary service. Review of Systems Review of Systems: All systems reviewed & are unremarkable except as noted in HPI and below Exam Const: General: cooperative and healthy appearing Orientation/consciousness: oriented to person, oriented to place and oriented to time HENMT: Head: normal to inspection Urinary Catheter: Urinary Catheter: patent and draining, urine clear and other (light jasmin) Skin: General skin exam: normal color Neuro: General: oriented to person, oriented to place and oriented to time Objective Data Vital Signs Vital Signs: Vital Signs - 24 hr 07/20/24 16:00 07/20/24 20:00 07/20/24 20:00 Temperature Pulse Rate 70 80 78 Respiratory Rate 16 Blood Pressure Pulse Oximetry 100 Oxygen Delivery Room Air 07/20/24 20:01 07/21/24 00:00 07/21/24 00:04 Temperature 98.4 F 98.2 F Pulse Rate 82 77 80 Respiratory Rate 17 16 Blood Pressure 145/70 H 127/59 L Pulse Oximetry 100 100 Oxygen Delivery 07/21/24 04:00 07/21/24 04:36 07/21/24 09:20 Temperature 98.4 F Pulse Rate 74 78 Respiratory Rate 16 Blood Pressure 108/63 Pulse Oximetry 100 100 Oxygen Delivery Room Air 07/21/24 12:00 Temperature 98.3 F Pulse Rate 91 Respiratory Rate 17 Blood Pressure 131/75 Pulse Oximetry 100 Oxygen Delivery Intake/Output Intake/Output: Intake & Output 07/18/24 07/19/24 07/20/24 07/21/24 23:59 23:59 23:59 23:59 Intake Total 8828.3 4410 4970 2160 Output Total 5900 900 4950 2850 Balance 2928.3 3510 20 -690 Meds/Results Medications: Active Medications Generic Name Dose Route Start Last Admin Trade Name Freq PRN Reason Stop Dose Admin Acetaminophen 650 mg 07/17/24 23:20 Acetaminophen 325 Mg Tablet PO Q4H PRN Mild Pain (1-3) or Fever Alprazolam 0.25 mg 07/18/24 01:50 07/19/24 21:11 Alprazolam (*Crx) 0.25 Mg Tablet PO 0.25 mg TID PRN Administration Anxiety Amoxicillin/Clavulanate Potassium 1 tablet 07/21/24 21:00 Amoxicillin/Clavulanate K 875-125 Mg Tab PO 07/24/24 09:01 Q12HR DAPHNE Azithromycin 500 mg 07/21/24 21:00 Azithromycin 250 Mg Tablet PO 07/21/24 21:01 ONCE ONE Calcium Carbonate 1,000 mg 07/21/24 15:00 Calcium/Vitamin D 500 Mg/5 Mcg (200 I.U.) Tablet PO 1000,1500,2100 DAPHNE Dextrose 12.5 gm 07/18/24 02:51 Dextrose 50% 25 Gm/50 Ml Syringe IV PUSH PRN PRN Hypoglycemia Protocol Glucagon 1 mg 07/18/24 02:51 Glucagon For Inj 1 Mg Vial IM PRN PRN Hypoglycemia Protocol Glucose 15 gm 07/18/24 02:51 Glucose Oral Gel 15 Gm Of Glucse In 37.5 Gm Tube PO PRN PRN Hypoglycemia Protocol Heparin Sodium (Porcine) 5,000 units 07/18/24 09:00 07/21/24 08:08 Heparin Sodium 5,000 Units/Ml Vial SUB-Q Not Given Q12HR DAPHNE Dextrose 1,000 mls @ 100 mls/hr 07/18/24 02:51 Dextrose 5% 1,000 Ml IVPB PRN PRN Hypoglycemia Protocol Insulin Aspart 3 - 6 units 07/18/24 08:00 07/21/24 12:31 Insulin Aspart (*Bkc) 100 Units/Ml SUB-Q 3 units TIDWM DAPHNE Administration Protocol Insulin Aspart 1 - 3 units 07/18/24 21:00 07/20/24 21:09 Insulin Aspart (*Bkc) 100 Units/Ml SUB-Q Not Given HS [facility] Protocol Loperamide HCl 2 mg 07/18/24 04:23 Loperamide Hcl 2 Mg Capsule PO PRN PRN Diarrhea Ondansetron HCl 4 mg 07/17/24 23:20 07/19/24 14:24 Ondansetron Inj 4 Mg/2 Ml Vial IV PUSH 4 mg Q4H PRN Administration Nausea Simethicone 80 mg 07/18/24 13:00 07/21/24 12:31 Simethicone 80 Mg Tab.Chew PO 80 mg QID DAPHNE Administration Tamsulosin HCl 0.4 mg 07/18/24 09:00 07/21/24 08:07 Tamsulosin Hcl 0.4 Mg Capsule PO 0.4 mg QAM DAPHNE Administration Radiology Results: ITS Impressions Abdomen/Pelvis CT 07/17/24 20:41 IMPRESSION: 1. Grossly distended urinary bladder with urinary bladder stone. 2. Enlarged prostate. 3. Bilateral moderate hydroureter and hydronephrotic changes. 4. Tiny stone in the right kidney midpole. Bilateral renal cysts. 5. Cholelithiasis. 6. No evidence of appendicitis, diverticulitis or intestinal obstruction. 7. Ground glass appearance suggestive of pneumonia in the middle lobe and both lower lobes. Follow-up advised. Chest X-Ray 07/18/24 06:27 IMPRESSION: No focal infiltrate or effusion. Renal Ultrasound 07/19/24 14:01 IMPRESSION: 1. Approximately 2 cm bilateral renal cysts. Otherwise normal kidneys with resolution of prior bilateral hydronephrosis likely related to interval Ríos catheter placement with decompression of the previously distended bladder. Labs Labs: Laboratory Results - last 24 hr 07/18/24 07/20/24 07/20/24 17:51 16:23 20:04 WBC RBC Hgb Hct MCV MCH MCHC RDW Plt Count MPV Immature Gran % (Auto) Neut % (Auto) Lymph % (Auto) [place] % (Auto) Eos % (Auto) Baso % (Auto) Lymph # (Auto) [place] # (Auto) Eos # (Auto) Baso # (Auto) Abs Immat Gran (auto) Absolute Neuts (auto) Absolute Nucleated RBC Nucleated RBC % % Immature Plt Fraction Sodium Potassium Chloride Carbon Dioxide Anion Gap BUN Creatinine Estim Creat Clear Calc Estimated GFR Glucose POC Capillary Glucose 156 H 172 H Calcium Phosphorus Magnesium Albumin Urine Pneumococcal Ag Not detected 07/21/24 07/21/24 07/21/24 06:40 06:42 07:31 WBC 9.7 RBC 4.26 L Hgb 12.0 L Hct 36.3 L MCV 85.2 MCH 28.2 MCHC 33.1 RDW 14.2 Plt Count 115 L MPV 10.8 H Immature Gran % (Auto) 0.4 Neut % (Auto) 58.4 Lymph % (Auto) 27.7 [place] % (Auto) 10.3 H Eos % (Auto) 2.8 Baso % (Auto) 0.4 Lymph # (Auto) 2.69 [place] # (Auto) 1.0 H Eos # (Auto) 0.3 Baso # (Auto) 0.0 Abs Immat Gran (auto) 0.04 H Absolute Neuts (auto) 5.7 Absolute Nucleated RBC 0.000 Nucleated RBC % 0.0 % Immature Plt Fraction 5.5 Sodium 133 L Potassium 3.1 L Chloride 104 Carbon Dioxide 20 L Anion Gap 9 BUN 10 Creatinine 0.79 Estim Creat Clear Calc 89 Estimated GFR > 60 Glucose 129 H POC Capillary Glucose 191 H Calcium 5.9 L* Phosphorus 1.5 L Magnesium 1.5 L Albumin 3.4 L Urine Pneumococcal Ag 07/21/24 11:30 WBC RBC Hgb Hct MCV MCH MCHC RDW Plt Count MPV Immature Gran % (Auto) Neut % (Auto) Lymph % (Auto) [place] % (Auto) Eos % (Auto) Baso % (Auto) Lymph # (Auto) [place] # (Auto) Eos # (Auto) Baso # (Auto) Abs Immat Gran (auto) Absolute Neuts (auto) Absolute Nucleated RBC Nucleated RBC % % Immature Plt Fraction Sodium Potassium Chloride Carbon Dioxide Anion Gap BUN Creatinine Estim Creat Clear Calc Estimated GFR Glucose POC Capillary Glucose 226 H Calcium Phosphorus Magnesium Albumin Urine Pneumococcal Ag
[2024-07-21] MEDS: CALCIUM/VITAMIN D 500 MG/5 MCG (200 I.U.) TABLET 1000 MG PO (16:38)
[2024-07-21 16:47] LABS: Glucose Point of Care 201 mg/dl (65-105)
[2024-07-21 17:32] LABS: Albumin Level 3.6 g/dL (3.5-5.1); Anion Gap 11 mmol/L (4-12); Blood Urea Nitrogen 16 mg/dL (9-20); Calcium 6.2 mg/dL (8.4-10.2); Carbon Dioxide 20 mmol/L (22-30); Chloride 99 mmol/L (98-107); Estimated CRCL calculation 83 ml/min; Estimated Glomerular Filt Rate > 60; Glucose 139 mg/dL (65-110); Phosphorus 1.9 mg/dL (2.5-4.5); Potassium 3.3 mmol/L (3.4-5.0); Sodium 130 mmol/L (137-145)
[2024-07-21] MEDS: POTASSIUM PHOS/SODIUM PHOS 250 MG TABLET 500 MG PO (18:37)
[2024-07-21 20:36] LABS: Glucose Point of Care 143 mg/dl (65-105)
[2024-07-21] MEDS: AMOXICILLIN/CLAVULANATE K 875-125 MG TAB 1 TABLET PO (22:00)
[2024-07-21] MEDS: HEPARIN SODIUM 5,000 UNITS/ML VIAL 5000 UNITS SUB-Q (22:01)
[2024-07-21] MEDS: AZITHROMYCIN 250 MG TABLET 500 MG PO (22:05)
[2024-07-21] MEDS: CALCIUM/VITAMIN D 500 MG/5 MCG (200 I.U.) TABLET 1500 MG PO (22:05)
[2024-07-22] VITALS (7 sets, daily range): BP systolic 124–137; BP diastolic 74–87; PULSE 76–97; RESP 16–20; TEMP 36.2–37.1; O2SAT 98–100; BMI 21.9
[2024-07-22 06:28] LABS: Basophils Percent Auto 0.4 % (0.2-1.2); Eosinophils Absolute Auto 0.2 K/mm3 (0-0.3); Eosinophils Percent Auto 2.9 % (0-4.4); Hematocrit 37.5 % (42.0-52.0); Hemoglobin 12.6 g/dL (14.0-18.0); Immature Granulocyte Absolute 0.04 K/mm3 (0.00-0.031); Immature Granulocyte Percent A 0.5 % (0-0.5); Immature Platelet Fraction Pct 6.5 % (0.9-11.2); Lymphocytes Absolute Auto 2.21 K/mm3 (0.9-3.2); Lymphocytes Percent Auto 30.2 % (18.3-44.2); Mean Corpuscular HGB Conc 33.6 g/dl (32-36); Mean Corpuscular Hemoglobin 28.6 pg (26-34); Mean Platelet Volume 10.7 fl (7.4-10.4); Neutrophils Absolute Auto 3.9 K/mm3 (1.3-6.7); Platelet Count Result 121 k/mm3 (150-375); Red Blood Count 4.41 M/mm3 (4.6-6.20); Red Cell Distribution Width 13.9 % (11.5-14.5); White Blood Count 7.3 K/mm3 (4.5-10.0)
[2024-07-22 06:40] LABS: Albumin Level 3.6 g/dL (3.5-5.1); Anion Gap 10 mmol/L (4-12); Blood Urea Nitrogen 14 mg/dL (9-20); Calcium 6.1 mg/dL (8.4-10.2); Carbon Dioxide 21 mmol/L (22-30); Chloride 101 mmol/L (98-107); Estimated CRCL calculation 82 ml/min; Estimated Glomerular Filt Rate > 60; Glucose 167 mg/dL (65-110); Magnesium 1.5 mg/dL (1.6-2.3); Phosphorus 1.6 mg/dL (2.5-4.5); Potassium 3.2 mmol/L (3.4-5.0); Sodium 132 mmol/L (137-145)
[2024-07-22 07:24] LABS: Glucose Point of Care 300 mg/dl (65-105)
[2024-07-22] MEDS: POTASSIUM PHOS/SODIUM PHOS 250 MG TABLET PO (09:29)
[2024-07-22] MEDS: CALCIUM/VITAMIN D 500 MG/5 MCG (200 I.U.) TABLET 1500 MG PO ×3 (09:30→20:59)
[2024-07-22] MEDS: AMOXICILLIN/CLAVULANATE K 875-125 MG TAB 1 TABLET PO ×2 (09:30→20:53)
[2024-07-22] MEDS: MAGNESIUM OXIDE 400 MG TABLET PO (09:30)
[2024-07-22] MEDS: SIMETHICONE 80 MG TAB.CHEW PO ×4 (09:30→20:53)
[2024-07-22] MEDS: POTASSIUM CHLORIDE 20 MEQ ER TABLET 40 MEQ PO (09:31)
[2024-07-22] MEDS: TAMSULOSIN HCL 0.4 MG CAPSULE PO (09:31)
[2024-07-22] MEDS: MAGNESIUM SULFATE 3GM/D5W100ML 3 GM/100 ML BAG IVPB (09:32)
[2024-07-22] MEDS: INSULIN ASPART (*BKC) 100 UNITS/ML SUB-Q ×2 (09:33→20:54)
--- NOTE | 2024-07-22 10:42 | PM.IMPN ---
Progress Note: A&P Assessment and Plan (1) Acute renal failure: Qualifiers: Acute renal failure type: unspecified Qualified Code(s): N17.9 - Acute kidney failure, unspecified Code(s): N17.9 - Acute kidney failure, unspecified Status: Acute (2) BPH with urinary obstruction: Code(s): N40.1 - Benign prostatic hyperplasia with lower urinary tract symptoms; N13.8 - Other obstructive and reflux uropathy Status: Acute (3) Bilateral pneumonia: Qualifiers: Lung location: lower lobe of lung Pneumonia type: due to unspecified organism Qualified Code(s): J18.9 - Pneumonia, unspecified organism Code(s): J18.9 - Pneumonia, unspecified organism Status: Acute (4) Postobstructive diuresis: Code(s): R35.89 - Other polyuria Status: Acute (5) Metabolic acidosis with respiratory alkalosis: Code(s): E87.20 - Acidosis, unspecified; E87.3 - Alkalosis Status: Acute (6) Hyperphosphatemia associated with renal failure: Code(s): E83.39 - Other disorders of phosphorus metabolism; N19 - Unspecified kidney failure Status: Acute (7) Hyperkalemia: Code(s): E87.5 - Hyperkalemia Status: Acute (8) Bladder stone: Code(s): N21.0 - Calculus in bladder Status: Acute (9) Diarrhea: Qualifiers: Diarrhea type: unspecified type Qualified Code(s): R19.7 - Diarrhea, unspecified Code(s): R19.7 - Diarrhea, unspecified Status: Acute (10) Nonadherence to medication: Code(s): Z91.148 - Patient's other noncompliance with medication regimen for other reason Status: Acute (11) Anxiety about treatment: Code(s): R45.89 - Other symptoms and signs involving emotional state Status: Acute Plan Hospital Course: Patient has what is likely acute on chronic bladder outlet obstruction due to BPH (plus or minus obstruction with bladder stone). His obstruction has resulted in what is likely acute on chronic kidney injury. Ortega catheter was placed in the ER. Since arriving to the IMU the patient has already had an additional 3.4 L of urine out be a sides the 1.3 L after initial catheter placement. The patient received 2 L fluid bolus in the ER but continues to have marked sinus tachycardia with heart rates between 120-140. Failed a void trial so catheter was replaced 07/20 neurology following. Planning in discharge with Ortega and follow-up with Urology in the outpatient setting Had HOLLIS on admission 525 with creatinine of 21, normalized with treatment of obstruction and with fluids. Potassium initially elevated at 5.8, now low and replacing . WBC elevated 22.5 on 07/17 has since normalized. UA had no wbc's but large RBCs on 07/17, likely due to outlet obstruction and not infection. Also treating pneumonia initially azithro, Flagyl, and ceftriaxone, now on Augmentin 4 more doses. Chest x-ray was normal shows that CT showed a ground-glass appearance suggestive of pneumonia in the middle on both lower lobes. Blood sugars are quite elevated at 300. Hemoglobin A1c 8.4. Getting sliding scale only. No home meds are listed. Urinary obstruction --Ortega in place, needs follow-up with Urology HOLLIS Resolved, but electrolytes low Hypocalcemia Hypophosphatemia Hypokalemia Electrolytes low today, replacing. In the setting of renal recovery. 2 g IV calcium, 20 millimoles K-Phos, repeat in a.m. Time Spent With Patient Time: 59 minutes Subjective Date/time seen: 07/22/24 10:42 Interval history: Vital signs stable Potassium 3.2 received 40 of potassium today. As well as K-Phos yesterday and today Hoping to discharge today but calcium critically low. Phos also low Review of Systems Review of Systems: 12 systems were reviewed with pertinent positives and negatives per HPI. Except as documented in the HPI, all other systems were reviewed and are negative. Exam Narrative: General - Awake and alert. No acute distress Eyes - PERRLA, EOM intact ENT - No thrush, No erythema Neck - No noticeable or palpable swelling Lymph Nodes - No lymphadenopathy Cardiovascular - RRR no m/r/g, no JVD Lungs: Clear to auscultation, No wheezing, use of accessory muscles, no crackles Skin - Skin warm and dry, no wounds or rashes Abdomen - Normal bowel sounds, abdomen soft and nontender Extremities - No edema, cyanosis or clubbing Musculoskeletal - 5/5 strength, normal range of motion, no swollen or erythematous joints. Neurological ? Alert and oriented x 3, CN 2-12 grossly intact. Psych: Normal mood and affect Ortega catheter in place Objective Data Vital Signs Vital Signs: Vital Signs - 24 hr 07/21/24 12:00 07/21/24 12:00 07/21/24 16:00 Temperature 98.3 F Pulse Rate 91 76 84 Respiratory Rate 17 Blood Pressure 131/75 Pulse Oximetry 100 Oxygen Delivery Fraction of Inspired Oxygen 07/21/24 20:00 07/21/24 20:00 07/21/24 20:00 Temperature 99.3 F Pulse Rate 86 86 90 Respiratory Rate 18 18 Blood Pressure 141/75 H Pulse Oximetry 96 96 Oxygen Delivery Room Air Fraction of Inspired Oxygen 07/21/24 22:00 07/22/24 00:00 07/22/24 00:00 Temperature 98.1 F Pulse Rate 88 85 86 Respiratory Rate 16 16 Blood Pressure 131/74 Pulse Oximetry 98 98 Oxygen Delivery Room Air Fraction of Inspired Oxygen 21 07/22/24 04:00 07/22/24 04:00 07/22/24 07:56 Temperature 98.8 F 97.1 F L Pulse Rate 80 76 88 Respiratory Rate 18 18 Blood Pressure 137/87 124/75 Pulse Oximetry 100 100 Oxygen Delivery Fraction of Inspired Oxygen Intake/Output Intake/Output: Intake & Output 07/19/24 07/20/24 07/21/24 07/22/24 23:59 23:59 23:59 23:59 Intake Total 4410 4970 3790 960 Output Total 900 4950 4050 2125 Balance 3510 66 -863 -4511 Meds/Results Medications: Active Medications Generic Name Dose Route Start Last Admin Trade Name Freq PRN Reason Stop Dose Admin Acetaminophen 650 mg 07/17/24 23:20 Acetaminophen 325 Mg Tablet PO Q4H PRN Mild Pain (1-3) or Fever Alprazolam 0.25 mg 07/18/24 01:50 07/19/24 21:11 Alprazolam (*Crx) 0.25 Mg Tablet PO 0.25 mg TID PRN Administration Anxiety Amoxicillin/Clavulanate Potassium 1 tablet 07/21/24 21:00 07/22/24 09:30 Amoxicillin/Clavulanate K 875-125 Mg Tab PO 07/24/24 09:01 1 tablet Q12HR DAPHNE Administration Calcium Carbonate 1,500 mg 07/21/24 21:00 07/22/24 09:30 Calcium/Vitamin D 500 Mg/5 Mcg (200 I.U.) Tablet PO 1,500 mg 1000,1500,2100 DAPHNE Administration Dextrose 12.5 gm 07/18/24 02:51 Dextrose 50% 25 Gm/50 Ml Syringe IV PUSH PRN PRN Hypoglycemia Protocol Glucagon 1 mg 07/18/24 02:51 Glucagon For Inj 1 Mg Vial IM PRN PRN Hypoglycemia Protocol Glucose 15 gm 07/18/24 02:51 Glucose Oral Gel 15 Gm Of Glucse In 37.5 Gm Tube PO PRN PRN Hypoglycemia Protocol Heparin Sodium (Porcine) 5,000 units 07/18/24 09:00 07/22/24 09:32 Heparin Sodium 5,000 Units/Ml Vial SUB-Q Not Given Q12HR DAPHNE Dextrose 1,000 mls @ 100 mls/hr 07/18/24 02:51 Dextrose 5% 1,000 Ml IVPB PRN PRN Hypoglycemia Protocol Insulin Aspart 3 - 6 units 07/18/24 08:00 07/22/24 09:33 Insulin Aspart (*Bkc) 100 Units/Ml SUB-Q 4 units TIDWM DAPHNE Administration Protocol Insulin Aspart 1 - 3 units 07/18/24 21:00 07/21/24 22:02 Insulin Aspart (*Bkc) 100 Units/Ml SUB-Q Not Given HS DAPHNE Protocol Loperamide HCl 2 mg 07/18/24 04:23 Loperamide Hcl 2 Mg Capsule PO PRN PRN Diarrhea Magnesium Oxide 400 mg 07/22/24 09:00 07/22/24 09:30 Magnesium Oxide 400 Mg Tablet PO 400 mg DAILY DAPHNE Administration Ondansetron HCl 4 mg 07/17/24 23:20 07/19/24 14:24 Ondansetron Inj 4 Mg/2 Ml Vial IV PUSH 4 mg Q4H PRN Administration Nausea Simethicone 80 mg 07/18/24 13:00 07/22/24 09:30 Simethicone 80 Mg Tab.Chew PO 80 mg QID DAPHNE Administration Sodium Phosphate 250 mg 07/22/24 08:00 07/22/24 09:35 Potassium Phos/Sodium Phos 250 Mg Tablet PO Not Given DAILY DAPHNE Tamsulosin HCl 0.4 mg 07/18/24 09:00 07/22/24 09:31 Tamsulosin Hcl 0.4 Mg Capsule PO 0.4 mg QAM DAPHNE Administration Radiology Results: ITS Impressions Abdomen/Pelvis CT 07/17/24 20:41 IMPRESSION: 1. Grossly distended urinary bladder with urinary bladder stone. 2. Enlarged prostate. 3. Bilateral moderate hydroureter and hydronephrotic changes. 4. Tiny stone in the right kidney midpole. Bilateral renal cysts. 5. Cholelithiasis. 6. No evidence of appendicitis, diverticulitis or intestinal obstruction. 7. Ground glass appearance suggestive of pneumonia in the middle lobe and both lower lobes. Follow-up advised. Chest X-Ray 07/18/24 06:27 IMPRESSION: No focal infiltrate or effusion. Renal Ultrasound 07/19/24 14:01 IMPRESSION: 1. Approximately 2 cm bilateral renal cysts. Otherwise normal kidneys with resolution of prior bilateral hydronephrosis likely related to interval Ortega catheter placement with decompression of the previously distended bladder. Labs Labs: Laboratory Results - last 24 hr 07/18/24 07/21/24 07/21/24 17:51 11:30 16:41 WBC RBC Hgb Hct MCV MCH MCHC RDW Plt Count MPV Immature Gran % (Auto) Neut % (Auto) Lymph % (Auto) [place] % (Auto) Eos % (Auto) Baso % (Auto) Lymph # (Auto) [place] # (Auto) Eos # (Auto) Baso # (Auto) Abs Immat Gran (auto) Absolute Neuts (auto) Absolute Nucleated RBC Nucleated RBC % % Immature Plt Fraction Sodium Potassium Chloride Carbon Dioxide Anion Gap BUN Creatinine Estim Creat Clear Calc Estimated GFR Glucose POC Capillary Glucose 226 H 201 H Calcium Phosphorus Magnesium Albumin Vitamin D 25-Hydroxy Urine Pneumococcal Ag Not detected 07/21/24 07/21/24 07/22/24 17:05 19:52 05:50 WBC 7.3 RBC 4.41 L Hgb 12.6 L Hct 37.5 L MCV 85.0 MCH 28.6 MCHC 33.6 RDW 13.9 Plt Count 121 L MPV 10.7 H Immature Gran % (Auto) 0.5 Neut % (Auto) 53.0 Lymph % (Auto) 30.2 [place] % (Auto) 13.0 H Eos % (Auto) 2.9 Baso % (Auto) 0.4 Lymph # (Auto) 2.21 [place] # (Auto) 1.0 H Eos # (Auto) 0.2 Baso # (Auto) 0.0 Abs Immat Gran (auto) 0.04 H Absolute Neuts (auto) 3.9 Absolute Nucleated RBC 0.000 Nucleated RBC % 0.0 % Immature Plt Fraction 6.5 Sodium 130 L 132 L Potassium 3.3 L 3.2 L Chloride 99 101 Carbon Dioxide 20 L 21 L Anion Gap 11 10 BUN 16 14 Creatinine 0.85 0.86 Estim Creat Clear Calc 83 82 Estimated GFR > 60 > 60 Glucose 139 H 167 H POC Capillary Glucose 143 H Calcium 6.2 L 6.1 L Phosphorus 1.9 L 1.6 L Magnesium 1.5 L Albumin 3.6 3.6 Vitamin D 25-Hydroxy 23.0 Urine Pneumococcal Ag 07/22/24 07:20 WBC RBC Hgb Hct MCV MCH MCHC RDW Plt Count MPV Immature Gran % (Auto) Neut % (Auto) Lymph % (Auto) [place] % (Auto) Eos % (Auto) Baso % (Auto) Lymph # (Auto) [place] # (Auto) Eos # (Auto) Baso # (Auto) Abs Immat Gran (auto) Absolute Neuts (auto) Absolute Nucleated RBC Nucleated RBC % % Immature Plt Fraction Sodium Potassium Chloride Carbon Dioxide Anion Gap BUN Creatinine Estim Creat Clear Calc Estimated GFR Glucose POC Capillary Glucose 300 H Calcium Phosphorus Magnesium Albumin Vitamin D 25-Hydroxy Urine Pneumococcal Ag Hospitalist MIPS Advance Care Plan I have confirmed that the patient's Advanced Care Plan is present, code status is documented, or surrogate decision maker is listed in patient medical record.: Yes Medication Reconciliation I have utilized all available resources to obtain, update and review the patients current medications (includes all prescriptions, OTC, herbals, cannabis, and nutritional supplements).: Yes
[2024-07-22 11:19] LABS: Glucose Point of Care 127 mg/dl (65-105)
[2024-07-22 14:38] LABS: Anion Gap 10 mmol/L (4-12); Blood Urea Nitrogen 14 mg/dL (9-20); Carbon Dioxide 23 mmol/L (22-30); Chloride 98 mmol/L (98-107); Estimated CRCL calculation 71 ml/min; Estimated Glomerular Filt Rate > 60; Glucose 185 mg/dL (65-110); Magnesium 2.2 mg/dL (1.6-2.3); Phosphorus 1.8 mg/dL (2.5-4.5); Potassium 3.4 mmol/L (3.4-5.0); Sodium 131 mmol/L (137-145)
[2024-07-22 14:39] LABS: Vitamin D 25 Hydroxy 32.2 ng/mL
[2024-07-22] MEDS: CALCIUM GLUC 1,000 MG/NS 50 ML 1,000 MG/50 ML BAG 100 MG IVPB (15:08)
[2024-07-22 16:40] LABS: Glucose Point of Care 199 mg/dl (65-105)
[2024-07-22] MEDS: POTASSIUM PHOS,M-BASIC-D-BASIC 20 MMOL in SODIUM CHLORIDE 0.9% IV 250 ML 64.17 MMOL IVPB (18:33)
[2024-07-22 20:27] LABS: Glucose Point of Care 254 mg/dl (65-105)
[2024-07-22] MEDS: HEPARIN SODIUM 5,000 UNITS/ML VIAL 5000 UNITS SUB-Q (20:53)
--- NOTE | 2024-07-22 22:17 | WPDUROPN2 ---
Progress Note: A&P Assessment and Plan (1) Acute renal failure: Qualifiers: Acute renal failure type: unspecified Qualified Code(s): N17.9 - Acute kidney failure, unspecified Code(s): N17.9 - Acute kidney failure, unspecified Status: Acute Assessment and Plan: Likely due to bladder outlet obstruction from enlarged prostate Renal function continues to improve with bladder decompression cr is 1.01 today (2) Hydroureter: Code(s): N13.4 - Hydroureter Status: Acute Assessment and Plan: Hydronephrosis and hydroureter should improve with Ríos drainage of the bladder Plan for outpatient KESHAV within the next few weeks to ensure resolution (3) Acute urinary retention: Code(s): R33.8 - Other retention of urine Status: Acute Assessment and Plan: The bladder was very distended. Patient aware there is likely to be ongoing dysfunction and poor bladder functioning which would preclude successful voiding trial. (4) Bladder stone: Code(s): N21.0 - Calculus in bladder Status: Acute Assessment and Plan: The bladder stone is secondary to the bladder outlet obstruction. It is a minor issue and can be managed when the prostate is managed in the future. (5) Enlarged prostate: Code(s): N40.0 - Benign prostatic hyperplasia without lower urinary tract symptoms Status: Acute Assessment and Plan: Plan outpatient prostate work up. Would not check PSA at this time as it would be artificially elevated. Plan - Maintain ríos. Patient aware he will go home with the ríos and follow up in the office in the next 1-2 weeks. - No plan for surgical intervention at this time -Will need to follow up as outpatient for prostate workup and possibly further retention management. Subjective Subjective Date/Time Seen: 07/22/24 22:17 Interval history: Vital signs stable potassium and calcium still needing replaced ríos patent Patient wants to leave. Review of Systems Review of Systems: All systems reviewed & are unremarkable except as noted in HPI and below Exam Const: General: cooperative and healthy appearing Orientation/consciousness: oriented to person, oriented to place and oriented to time HENMT: Head: normal to inspection Urinary Catheter: Urinary Catheter: patent and draining, urine clear and other (light jasmin) Skin: General skin exam: normal color Neuro: General: oriented to person, oriented to place and oriented to time Objective Data Vital Signs Vital Signs: Vital Signs - 24 hr 07/22/24 00:00 07/22/24 00:00 07/22/24 04:00 Temperature 98.1 F Pulse Rate 85 86 80 Respiratory Rate 16 Blood Pressure 131/74 Pulse Oximetry 98 Oxygen Delivery 07/22/24 04:00 07/22/24 07:56 07/22/24 08:00 Temperature 98.8 F 97.1 F L Pulse Rate 76 88 85 Respiratory Rate 18 18 Blood Pressure 137/87 124/75 Pulse Oximetry 100 100 Oxygen Delivery 07/22/24 09:40 07/22/24 12:00 07/22/24 16:00 Temperature 98 F Pulse Rate 97 86 Respiratory Rate 18 Blood Pressure 130/81 Pulse Oximetry 100 Oxygen Delivery Room Air 07/22/24 20:00 Temperature 98.2 F Pulse Rate 86 Respiratory Rate 20 Blood Pressure 133/86 Pulse Oximetry 100 Oxygen Delivery Intake/Output Intake/Output: Intake & Output 07/19/24 07/20/24 07/21/24 07/22/24 23:59 23:59 23:59 23:59 Intake Total 4410 4970 3790 2700 Output Total 900 4950 4050 4925 Balance 3510 71 -[phone] -8796 Meds/Results Medications: Active Medications Generic Name Dose Route Start Last Admin Trade Name Freq PRN Reason Stop Dose Admin Acetaminophen 650 mg 07/17/24 23:20 Acetaminophen 325 Mg Tablet PO Q4H PRN Mild Pain (1-3) or Fever Alprazolam 0.25 mg 07/18/24 01:50 07/19/24 21:11 Alprazolam (*Crx) 0.25 Mg Tablet PO 0.25 mg TID PRN Administration Anxiety Amoxicillin/Clavulanate Potassium 1 tablet 07/21/24 21:00 07/22/24 20:53 Amoxicillin/Clavulanate K 875-125 Mg Tab PO 07/24/24 09:01 1 tablet Q12HR DAPHNE Administration Calcium Carbonate 1,500 mg 07/21/24 21:00 07/22/24 20:59 Calcium/Vitamin D 500 Mg/5 Mcg (200 I.U.) Tablet PO 1,500 mg 1000,1500,2100 DAPHNE Administration Dextrose 12.5 gm 07/18/24 02:51 Dextrose 50% 25 Gm/50 Ml Syringe IV PUSH PRN PRN Hypoglycemia Protocol Glucagon 1 mg 07/18/24 02:51 Glucagon For Inj 1 Mg Vial IM PRN PRN Hypoglycemia Protocol Glucose 15 gm 07/18/24 02:51 Glucose Oral Gel 15 Gm Of Glucse In 37.5 Gm Tube PO PRN PRN Hypoglycemia Protocol Heparin Sodium (Porcine) 5,000 units 07/18/24 09:00 07/22/24 20:53 Heparin Sodium 5,000 Units/Ml Vial SUB-Q 5,000 units Q12HR DAPHNE Administration Dextrose 1,000 mls @ 100 mls/hr 07/18/24 02:51 Dextrose 5% 1,000 Ml IVPB PRN PRN Hypoglycemia Protocol Potassium Phosphate 20 mmol/ 256.6667 mls @ 64.167 mls/hr 07/22/24 18:30 07/22/24 18:33 Sodium Chloride IVPB 07/22/24 22:29 64.17 mls/hr ONCE ONE Administration Insulin Aspart 3 - 6 units 07/18/24 08:00 07/22/24 16:59 Insulin Aspart (*Bkc) 100 Units/Ml SUB-Q Not Given TIDWM DAPHNE Protocol Insulin Aspart 1 - 3 units 07/18/24 21:00 07/22/24 20:54 Insulin Aspart (*Bkc) 100 Units/Ml SUB-Q 2 units HS DAPHNE Administration Protocol Loperamide HCl 2 mg 07/18/24 04:23 Loperamide Hcl 2 Mg Capsule PO PRN PRN Diarrhea Magnesium Oxide 400 mg 07/22/24 09:00 07/22/24 09:30 Magnesium Oxide 400 Mg Tablet PO 400 mg DAILY DAPHNE Administration Ondansetron HCl 4 mg 07/17/24 23:20 07/19/24 14:24 Ondansetron Inj 4 Mg/2 Ml Vial IV PUSH 4 mg Q4H PRN Administration Nausea Simethicone 80 mg 07/18/24 13:00 07/22/24 20:53 Simethicone 80 Mg Tab.Chew PO 80 mg QID DAPHNE Administration Sodium Phosphate 250 mg 07/22/24 08:00 07/22/24 09:35 Potassium Phos/Sodium Phos 250 Mg Tablet PO Not Given DAILY DAPHNE Tamsulosin HCl 0.4 mg 07/18/24 09:00 07/22/24 09:31 Tamsulosin Hcl 0.4 Mg Capsule PO 0.4 mg QAM DAPHNE Administration Radiology Results: ITS Impressions Abdomen/Pelvis CT 07/17/24 20:41 IMPRESSION: 1. Grossly distended urinary bladder with urinary bladder stone. 2. Enlarged prostate. 3. Bilateral moderate hydroureter and hydronephrotic changes. 4. Tiny stone in the right kidney midpole. Bilateral renal cysts. 5. Cholelithiasis. 6. No evidence of appendicitis, diverticulitis or intestinal obstruction. 7. Ground glass appearance suggestive of pneumonia in the middle lobe and both lower lobes. Follow-up advised. Chest X-Ray 07/18/24 06:27 IMPRESSION: No focal infiltrate or effusion. Renal Ultrasound 07/19/24 14:01 IMPRESSION: 1. Approximately 2 cm bilateral renal cysts. Otherwise normal kidneys with resolution of prior bilateral hydronephrosis likely related to interval Ríos catheter placement with decompression of the previously distended bladder. Labs Labs: Laboratory Results - last 24 hr 07/22/24 07/22/24 07/22/24 05:50 07:20 11:15 WBC 7.3 RBC 4.41 L Hgb 12.6 L Hct 37.5 L MCV 85.0 MCH 28.6 MCHC 33.6 RDW 13.9 Plt Count 121 L MPV 10.7 H Immature Gran % (Auto) 0.5 Neut % (Auto) 53.0 Lymph % (Auto) 30.2 [place] % (Auto) 13.0 H Eos % (Auto) 2.9 Baso % (Auto) 0.4 Lymph # (Auto) 2.21 [place] # (Auto) 1.0 H Eos # (Auto) 0.2 Baso # (Auto) 0.0 Abs Immat Gran (auto) 0.04 H Absolute Neuts (auto) 3.9 Absolute Nucleated RBC 0.000 Nucleated RBC % 0.0 % Immature Plt Fraction 6.5 Sodium 132 L Potassium 3.2 L Chloride 101 Carbon Dioxide 21 L Anion Gap 10 BUN 14 Creatinine 0.86 Estim Creat Clear Calc 82 Estimated GFR > 60 Glucose 167 H POC Capillary Glucose 300 H 127 H Calcium 6.1 L Phosphorus 1.6 L Magnesium 1.5 L Albumin 3.6 Vitamin D 25-Hydroxy 07/22/24 07/22/24 07/22/24 13:46 13:53 16:37 WBC RBC Hgb Hct MCV MCH MCHC RDW Plt Count MPV Immature Gran % (Auto) Neut % (Auto) Lymph % (Auto) [place] % (Auto) Eos % (Auto) Baso % (Auto) Lymph # (Auto) [place] # (Auto) Eos # (Auto) Baso # (Auto) Abs Immat Gran (auto) Absolute Neuts (auto) Absolute Nucleated RBC Nucleated RBC % % Immature Plt Fraction Sodium 131 L Potassium 3.4 Chloride 98 Carbon Dioxide 23 Anion Gap 10 BUN 14 Creatinine 1.01 Estim Creat Clear Calc 71 Estimated GFR > 60 Glucose 185 H POC Capillary Glucose 199 H Calcium 5.8 L* Phosphorus 1.8 L Magnesium 2.2 Albumin Vitamin D 25-Hydroxy 32.2 07/22/24 19:53 WBC RBC Hgb Hct MCV MCH MCHC RDW Plt Count MPV Immature Gran % (Auto) Neut % (Auto) Lymph % (Auto) [place] % (Auto) Eos % (Auto) Baso % (Auto) Lymph # (Auto) [place] # (Auto) Eos # (Auto) Baso # (Auto) Abs Immat Gran (auto) Absolute Neuts (auto) Absolute Nucleated RBC Nucleated RBC % % Immature Plt Fraction Sodium Potassium Chloride Carbon Dioxide Anion Gap BUN Creatinine Estim Creat Clear Calc Estimated GFR Glucose POC Capillary Glucose 254 H Calcium Phosphorus Magnesium Albumin Vitamin D 25-Hydroxy
[2024-07-23] VITALS (7 sets, daily range): BP systolic 110–145; BP diastolic 68–95; PULSE 71–89; RESP 16–20; TEMP 35.6–36.8; O2SAT 99–100
[2024-07-23 06:32] LABS: Basophils Absolute Auto 0.1 K/mm3 (0.0-0.1); Basophils Percent Auto 0.6 % (0.2-1.2); Eosinophils Absolute Auto 0.2 K/mm3 (0-0.3); Eosinophils Percent Auto 2.6 % (0-4.4); Hematocrit 37.5 % (42.0-52.0); Hemoglobin 12.5 g/dL (14.0-18.0); Immature Granulocyte Absolute 0.03 K/mm3 (0.00-0.031); Immature Granulocyte Percent A 0.4 % (0-0.5); Lymphocytes Absolute Auto 2.86 K/mm3 (0.9-3.2); Lymphocytes Percent Auto 35.6 % (18.3-44.2); Mean Corpuscular HGB Conc 33.3 g/dl (32-36); Mean Corpuscular Hemoglobin 28.3 pg (26-34); Mean Corpuscular Volume 84.8 fl (80-100); Monocytes Absolute Auto 1.2 K/mm3 (0.1-0.6); Monocytes Percent Auto 15.4 % (2.6-8.5); Neutrophils Absolute Auto 3.7 K/mm3 (1.3-6.7); Neutrophils Percent Auto 45.4 % (45.5-73.1); Platelet Count Result 137 k/mm3 (150-375); Red Blood Count 4.42 M/mm3 (4.6-6.20)
[2024-07-23 06:45] LABS: Albumin Level 3.6 g/dL (3.5-5.1); Anion Gap 9 mmol/L (4-12); Blood Urea Nitrogen 12 mg/dL (9-20); Calcium 6.2 mg/dL (8.4-10.2); Carbon Dioxide 21 mmol/L (22-30); Chloride 101 mmol/L (98-107); Estimated CRCL calculation 86 ml/min; Estimated Glomerular Filt Rate > 60; Glucose 147 mg/dL (65-110); Magnesium 1.6 mg/dL (1.6-2.3); Phosphorus 1.8 mg/dL (2.5-4.5); Potassium 3.6 mmol/L (3.4-5.0); Sodium 131 mmol/L (137-145)
--- NOTE | 2024-07-23 07:32 | PM.IMPN ---
Progress Note: A&P Assessment and Plan (1) Acute renal failure: Qualifiers: Acute renal failure type: unspecified Qualified Code(s): N17.9 - Acute kidney failure, unspecified Code(s): N17.9 - Acute kidney failure, unspecified Status: Acute (2) BPH with urinary obstruction: Code(s): N40.1 - Benign prostatic hyperplasia with lower urinary tract symptoms; N13.8 - Other obstructive and reflux uropathy Status: Acute (3) Bilateral pneumonia: Qualifiers: Lung location: lower lobe of lung Pneumonia type: due to unspecified organism Qualified Code(s): J18.9 - Pneumonia, unspecified organism Code(s): J18.9 - Pneumonia, unspecified organism Status: Acute (4) Postobstructive diuresis: Code(s): R35.89 - Other polyuria Status: Acute (5) Metabolic acidosis with respiratory alkalosis: Code(s): E87.20 - Acidosis, unspecified; E87.3 - Alkalosis Status: Acute (6) Hyperphosphatemia associated with renal failure: Code(s): E83.39 - Other disorders of phosphorus metabolism; N19 - Unspecified kidney failure Status: Acute (7) Hyperkalemia: Code(s): E87.5 - Hyperkalemia Status: Acute (8) Bladder stone: Code(s): N21.0 - Calculus in bladder Status: Acute (9) Diarrhea: Qualifiers: Diarrhea type: unspecified type Qualified Code(s): R19.7 - Diarrhea, unspecified Code(s): R19.7 - Diarrhea, unspecified Status: Acute (10) Nonadherence to medication: Code(s): Z91.148 - Patient's other noncompliance with medication regimen for other reason Status: Acute (11) Anxiety about treatment: Code(s): R45.89 - Other symptoms and signs involving emotional state Status: Acute Plan Hospital Course: Patient has what is likely acute on chronic bladder outlet obstruction due to BPH (plus or minus obstruction with bladder stone). His obstruction caused acute kidney injury. Ortega catheter was placed in the ER. Patient was intially admitted to the IMU. Urology was consulted for urinary obstruction He received a 2 L fluid bolus in the ER, but contined to have marked sinus tachycardia with heart rates between 120-140. Failed a void trial so catheter was replaced 07/20 by urology. 07/18 Chest x-ray was normal. 07/18 CT showed: 1. Grossly distended urinary bladder with urinary bladder stone. 2. Enlarged prostate. 3. Bilateral moderate hydroureter and hydronephrotic changes. 4. Tiny stone in the right kidney midpole. Bilateral renal cysts. 5. Cholelithiasis. 6. No evidence of appendicitis, diverticulitis or intestinal obstruction. 7. Ground glass appearance suggestive of pneumonia in the middle lobe and both lower lobes. Follow-up advised. 07/19 Renal US: 1. Approximately 2 cm bilateral renal cysts. Otherwise normal kidneys with resolution of prior bilateral hydronephrosis likely related to interval Ortega catheter placement with decompression of the previously distended bladder. Had HOLLIS on admission 525 with creatinine of 21, normalized with treatment of obstruction and with fluids. Potassium initially elevated at 5.8, now low and replacing. WBC elevated 22.5 on 07/17 has since normalized. UA had no wbc's but large RBCs on 07/17, likely due to outlet obstruction and not infection. Also treating pneumonia initially azithro, Flagyl, and ceftriaxone, now on Augmentin BID to 07/24. Blood sugars are quite elevated at 300. Hemoglobin A1c 8.4. Getting sliding scale only. No home meds are listed. Urinary obstruction --Ortega in place, needs follow-up with Urology HOLLIS Resolved, but electrolytes low. Metabolic acidosis resolved and creatinine normal, 0.85 Hypocalcemia Hypophosphatemia Hypokalemia Hypomagnesemia Electrolytes low, repleting frequently today. Patient anxious to go home. Likely related to renal recovery. Also initially had a poor appetite but is now eating well 07/22 s/p 2 g IV calcium, 20 millimoles K-Phos, Mag 3g 07/23 6 Grams calcium (2g x3) & calcium carbonate 1500 TID, Kphos 20mg & 500mg x2, Mag 4g IV & 400mg PO --Repeating labs tonight --Consider discussing follow up labs with nephrology prior to discharge. Patient does not have a PCP yet so not sure who will follow electrolytes Time Spent With Patient Time: 56 minutes Subjective Date/time seen: 07/23/24 07:32 Interval history: Vital signs stable Critically low calcium yesterday. Low mag, calcium and phos today, replacing Anxious to go home but requiring aggressive electrolyte replacement Ortega in place Review of Systems Review of Systems: 12 systems were reviewed with pertinent positives and negatives per HPI. Except as documented in the HPI, all other systems were reviewed and are negative. Exam Narrative: General - Awake and alert. No acute distress Eyes - PERRLA, EOM intact ENT - No thrush, No erythema Neck - No noticeable or palpable swelling Lymph Nodes - No lymphadenopathy Cardiovascular - RRR no m/r/g, no JVD Lungs: Clear to auscultation, No wheezing, use of accessory muscles, no crackles Skin - Skin warm and dry, no wounds or rashes Abdomen - Normal bowel sounds, abdomen soft and nontender Extremities - No edema, cyanosis or clubbing Musculoskeletal - 5/5 strength, normal range of motion, no swollen or erythematous joints. Neurological ? Alert and oriented x 3, CN 2-12 grossly intact. Psych: Normal mood and affect Ortega catheter in place Objective Data Vital Signs Vital Signs: Vital Signs - 24 hr 07/22/24 07:56 07/22/24 08:00 07/22/24 09:40 Temperature 97.1 F L Pulse Rate 88 85 Respiratory Rate 18 Blood Pressure 124/75 Pulse Oximetry 100 Oxygen Delivery Room Air Fraction of Inspired Oxygen 07/22/24 12:00 07/22/24 16:00 07/22/24 20:00 Temperature 98 F 98.2 F Pulse Rate 97 86 86 Respiratory Rate 18 20 Blood Pressure 130/81 133/86 Pulse Oximetry 100 100 Oxygen Delivery Fraction of Inspired Oxygen 07/22/24 20:00 07/23/24 00:00 07/23/24 04:00 Temperature 98.1 F 98.1 F Pulse Rate 89 89 79 Respiratory Rate 20 20 16 Blood Pressure 123/73 110/70 Pulse Oximetry 100 100 100 Oxygen Delivery Room Air Fraction of Inspired Oxygen 21 Intake/Output Intake/Output: Intake & Output 07/20/24 07/21/24 07/22/24 07/23/24 23:59 23:59 23:59 23:59 Intake Total 4970 3790 3106.6667 980 Output Total 4890 1989 4929 928 Balance 86 -748 -5403.0111 55 Meds/Results Medications: Active Medications Generic Name Dose Route Start Last Admin Trade Name Freq PRN Reason Stop Dose Admin Acetaminophen 650 mg 07/17/24 23:20 Acetaminophen 325 Mg Tablet PO Q4H PRN Mild Pain (1-3) or Fever Alprazolam 0.25 mg 07/18/24 01:50 07/19/24 21:11 Alprazolam (*Crx) 0.25 Mg Tablet PO 0.25 mg TID PRN Administration Anxiety Amoxicillin/Clavulanate Potassium 1 tablet 07/21/24 21:00 07/22/24 20:53 Amoxicillin/Clavulanate K 875-125 Mg Tab PO 07/24/24 09:01 1 tablet Q12HR DAPHNE Administration Calcium Carbonate 1,500 mg 07/21/24 21:00 07/22/24 20:59 Calcium/Vitamin D 500 Mg/5 Mcg (200 I.U.) Tablet PO 1,500 mg 1000,1500,2100 DAPHNE Administration Dextrose 12.5 gm 07/18/24 02:51 Dextrose 50% 25 Gm/50 Ml Syringe IV PUSH PRN PRN Hypoglycemia Protocol Glucagon 1 mg 07/18/24 02:51 Glucagon For Inj 1 Mg Vial IM PRN PRN Hypoglycemia Protocol Glucose 15 gm 07/18/24 02:51 Glucose Oral Gel 15 Gm Of Glucse In 37.5 Gm Tube PO PRN PRN Hypoglycemia Protocol Heparin Sodium (Porcine) 5,000 units 07/18/24 09:00 07/22/24 20:53 Heparin Sodium 5,000 Units/Ml Vial SUB-Q 5,000 units Q12HR DAPHNE Administration Dextrose 1,000 mls @ 100 mls/hr 07/18/24 02:51 Dextrose 5% 1,000 Ml IVPB PRN PRN Hypoglycemia Protocol Calcium Gluconate 2,000 mg in 100 mls @ 100 mls/hr 07/23/24 07:30 Calcium Gluc 2,000 Mg/Ns 100ml IVPB 07/23/24 10:29 Q2H DAPHNE Insulin Aspart 3 - 6 units 07/18/24 08:00 07/22/24 16:59 Insulin Aspart (*Bkc) 100 Units/Ml SUB-Q Not Given TIDWM [facility] Protocol Insulin Aspart 1 - 3 units 07/18/24 21:00 07/22/24 20:54 Insulin Aspart (*Bkc) 100 Units/Ml SUB-Q 2 units HS DAPHNE Administration Protocol Loperamide HCl 2 mg 07/18/24 04:23 Loperamide Hcl 2 Mg Capsule PO PRN PRN Diarrhea Magnesium Oxide 400 mg 05/30/25 09:00 07/22/24 09:30 Magnesium Oxide 400 Mg Tablet PO 400 mg DAILY DAPHNE Administration Ondansetron HCl 4 mg 07/17/24 23:20 07/19/24 14:24 Ondansetron Inj 4 Mg/2 Ml Vial IV PUSH 4 mg Q4H PRN Administration Nausea Simethicone 80 mg 07/18/24 13:00 07/22/24 20:53 Simethicone 80 Mg Tab.Chew PO 80 mg QID DAPHNE Administration Sodium Phosphate 500 mg 07/23/24 09:00 Potassium Phos/Sodium Phos 250 Mg Tablet PO 07/27/24 08:59 BID DAPHNE Tamsulosin HCl 0.4 mg 07/18/24 09:00 07/22/24 09:31 Tamsulosin Hcl 0.4 Mg Capsule PO 0.4 mg QAM DAPHNE Administration Radiology Results: ITS Impressions Abdomen/Pelvis CT 07/17/24 20:41 IMPRESSION: 1. Grossly distended urinary bladder with urinary bladder stone. 2. Enlarged prostate. 3. Bilateral moderate hydroureter and hydronephrotic changes. 4. Tiny stone in the right kidney midpole. Bilateral renal cysts. 5. Cholelithiasis. 6. No evidence of appendicitis, diverticulitis or intestinal obstruction. 7. Ground glass appearance suggestive of pneumonia in the middle lobe and both lower lobes. Follow-up advised. Chest X-Ray 07/18/24 06:27 IMPRESSION: No focal infiltrate or effusion. Renal Ultrasound 07/19/24 14:01 IMPRESSION: 1. Approximately 2 cm bilateral renal cysts. Otherwise normal kidneys with resolution of prior bilateral hydronephrosis likely related to interval Ortega catheter placement with decompression of the previously distended bladder. Labs Labs: Laboratory Results - last 24 hr 07/22/24 07/22/24 07/22/24 11:15 13:46 13:53 WBC RBC Hgb Hct MCV MCH MCHC RDW Plt Count MPV Immature Gran % (Auto) Neut % (Auto) Lymph % (Auto) [place] % (Auto) Eos % (Auto) Baso % (Auto) Lymph # (Auto) [place] # (Auto) Eos # (Auto) Baso # (Auto) Abs Immat Gran (auto) Absolute Neuts (auto) Absolute Nucleated RBC Nucleated RBC % % Immature Plt Fraction Sodium 131 L Potassium 3.4 Chloride 98 Carbon Dioxide 23 Anion Gap 10 BUN 14 Creatinine 1.01 Estim Creat Clear Calc 71 Estimated GFR > 60 Glucose 185 H POC Capillary Glucose 127 H Calcium 5.8 L* Phosphorus 1.8 L Magnesium 2.2 Albumin Vitamin D 25-Hydroxy 32.2 07/22/24 07/22/24 07/23/24 16:37 19:53 05:56 WBC 8.0 RBC 4.42 L Hgb 12.5 L Hct 37.5 L MCV 84.8 MCH 28.3 MCHC 33.3 RDW 14.0 Plt Count 137 L MPV 11.0 H Immature Gran % (Auto) 0.4 Neut % (Auto) 45.4 L Lymph % (Auto) 35.6 [place] % (Auto) 15.4 H Eos % (Auto) 2.6 Baso % (Auto) 0.6 Lymph # (Auto) 2.86 [place] # (Auto) 1.2 H Eos # (Auto) 0.2 Baso # (Auto) 0.1 Abs Immat Gran (auto) 0.03 Absolute Neuts (auto) 3.7 Absolute Nucleated RBC 0.000 Nucleated RBC % 0.0 % Immature Plt Fraction 6.0 Sodium 131 L Potassium 3.6 Chloride 101 Carbon Dioxide 21 L Anion Gap 9 BUN 12 Creatinine 0.82 Estim Creat Clear Calc 86 Estimated GFR > 60 Glucose 147 H POC Capillary Glucose 199 H 254 H Calcium 6.2 L Phosphorus 1.8 L Magnesium 1.6 Albumin 3.6 Vitamin D 25-Hydroxy Quality VTE Prophylaxis VTE prophylaxis: pharmacologic ordered (Heparin 5000 units subQ q.12 hours) Hospitalist MIPS Advance Care Plan I have confirmed that the patient's Advanced Care Plan is present, code status is documented, or surrogate decision maker is listed in patient medical record.: Yes Medication Reconciliation I have utilized all available resources to obtain, update and review the patients current medications (includes all prescriptions, OTC, herbals, cannabis, and nutritional supplements).: Yes
[2024-07-23 09:01] LABS: Glucose Point of Care 222 mg/dl (65-105)
[2024-07-23] MEDS: CALCIUM GLUC 2,000 MG/NS 100ML 2,000 MG/100 ML BAG 100 MG IVPB ×3 (09:09→20:48)
[2024-07-23] MEDS: MAGNESIUM OXIDE 400 MG TABLET PO (09:13)
[2024-07-23] MEDS: SIMETHICONE 80 MG TAB.CHEW PO ×4 (09:13→20:45)
[2024-07-23] MEDS: TAMSULOSIN HCL 0.4 MG CAPSULE PO (09:13)
[2024-07-23] MEDS: CALCIUM/VITAMIN D 500 MG/5 MCG (200 I.U.) TABLET 1500 MG PO (09:13)
[2024-07-23] MEDS: AMOXICILLIN/CLAVULANATE K 875-125 MG TAB 1 TABLET PO ×2 (09:14→20:45)
[2024-07-23] MEDS: HEPARIN SODIUM 5,000 UNITS/ML VIAL 5000 UNITS SUB-Q ×2 (09:14→20:46)
[2024-07-23] MEDS: POTASSIUM PHOS/SODIUM PHOS 250 MG TABLET 500 MG PO ×2 (09:14→17:05)
[2024-07-23] MEDS: INSULIN ASPART (*BKC) 100 UNITS/ML SUB-Q (09:14)
[2024-07-23] MEDS: POTASSIUM CHLORIDE 20 MEQ PACKET (FOR LIQUID) 40 MEQ PO (10:10)
[2024-07-23 11:06] LABS: Glucose Point of Care 160 mg/dl (65-105)
[2024-07-23 13:16] LABS: Anion Gap 8 mmol/L (4-12); Blood Urea Nitrogen 14 mg/dL (9-20); Calcium 7.3 mg/dL (8.4-10.2); Carbon Dioxide 23 mmol/L (22-30); Chloride 100 mmol/L (98-107); Estimated CRCL calculation 83 ml/min; Estimated Glomerular Filt Rate > 60; Glucose 180 mg/dL (65-110); Magnesium 1.5 mg/dL (1.6-2.3); Phosphorus 2.3 mg/dL (2.5-4.5); Potassium 4.2 mmol/L (3.4-5.0); Sodium 131 mmol/L (137-145)
[2024-07-23] MEDS: CALCIUM/VITAMIN D 500 MG/5 MCG (200 I.U.) TABLET 2000 MG PO ×2 (15:20→20:45)
[2024-07-23 16:28] LABS: Glucose Point of Care 168 mg/dl (65-105)
[2024-07-23] MEDS: MAGNESIUM SULF 4 GM/WATER100ML 4 GM/100 ML BAG IVPB (16:36)
[2024-07-23 21:15] LABS: Glucose Point of Care 199 mg/dl (65-105)
[2024-07-23 21:26] LABS: Anion Gap 11 mmol/L (4-12); Blood Urea Nitrogen 17 mg/dL (9-20); Calcium 7.7 mg/dL (8.4-10.2); Carbon Dioxide 20 mmol/L (22-30); Chloride 100 mmol/L (98-107); Estimated CRCL calculation 78 ml/min; Estimated Glomerular Filt Rate > 60; Glucose 187 mg/dL (65-110); Potassium 3.9 mmol/L (3.4-5.0); Sodium 131 mmol/L (137-145)
[2024-07-24] VITALS: BP 124/77; PULSE 95; PULSE 96; RESP 20; TEMP 36.8; O2SAT 100
[2024-07-24 04:00] VITALS: BP 127/92; PULSE 76; PULSE 84; RESP 18; TEMP 36.8; O2SAT 98
[2024-07-24 06:18] LABS: Basophils Percent Auto 0.5 % (0.2-1.2); Eosinophils Absolute Auto 0.2 K/mm3 (0-0.3); Eosinophils Percent Auto 2.9 % (0-4.4); Hematocrit 40.4 % (42.0-52.0); Hemoglobin 13.2 g/dL (14.0-18.0); Immature Granulocyte Absolute 0.03 K/mm3 (0.00-0.031); Immature Granulocyte Percent A 0.4 % (0-0.5); Lymphocytes Absolute Auto 2.41 K/mm3 (0.9-3.2); Lymphocytes Percent Auto 32.9 % (18.3-44.2); Mean Corpuscular HGB Conc 32.7 g/dl (32-36); Mean Corpuscular Hemoglobin 27.6 pg (26-34); Mean Corpuscular Volume 84.5 fl (80-100); Mean Platelet Volume 10.9 fl (7.4-10.4); Monocytes Absolute Auto 1.1 K/mm3 (0.1-0.6); Monocytes Percent Auto 14.5 % (2.6-8.5); Neutrophils Absolute Auto 3.6 K/mm3 (1.3-6.7); Neutrophils Percent Auto 48.8 % (45.5-73.1); Platelet Count Result 168 k/mm3 (150-375); Red Blood Count 4.78 M/mm3 (4.6-6.20); White Blood Count 7.3 K/mm3 (4.5-10.0)
[2024-07-24 06:30] LABS: Anion Gap 9 mmol/L (4-12); Blood Urea Nitrogen 16 mg/dL (9-20); Calcium 8.4 mg/dL (8.4-10.2); Carbon Dioxide 22 mmol/L (22-30); Chloride 103 mmol/L (98-107); Estimated CRCL calculation 70 ml/min; Estimated Glomerular Filt Rate > 60; Glucose 165 mg/dL (65-110); Phosphorus 2.4 mg/dL (2.5-4.5); Potassium 4.5 mmol/L (3.4-5.0); Sodium 134 mmol/L (137-145)
[2024-07-24 07:55] LABS: Glucose Point of Care 183 mg/dl (65-105)
[2024-07-24 08:00] VITALS: BP 142/89; PULSE 119; PULSE 92; RESP 20; TEMP 36.7; O2SAT 100
[2024-07-24] MEDS: MAGNESIUM OXIDE 400 MG TABLET PO (08:17)
[2024-07-24] MEDS: POTASSIUM PHOS/SODIUM PHOS 250 MG TABLET 500 MG PO (08:17)
[2024-07-24] MEDS: AMOXICILLIN/CLAVULANATE K 875-125 MG TAB 1 TABLET PO (08:17)
[2024-07-24] MEDS: TAMSULOSIN HCL 0.4 MG CAPSULE PO (08:17)
[2024-07-24] MEDS: SIMETHICONE 80 MG TAB.CHEW PO ×2 (08:17→12:54)
--- NOTE | 2024-07-24 09:20 | P.PNIM_ITS ---
Progress Note: A&P Assessment and Plan (1) Acute renal failure: Qualifiers: Acute renal failure type: unspecified Qualified Code(s): N17.9 - Acute kidney failure, unspecified Code(s): N17.9 - Acute kidney failure, unspecified Status: Acute (2) BPH with urinary obstruction: Code(s): N40.1 - Benign prostatic hyperplasia with lower urinary tract symptoms; N13.8 - Other obstructive and reflux uropathy Status: Acute (3) Bilateral pneumonia: Qualifiers: Lung location: lower lobe of lung Pneumonia type: due to unspecified organism Qualified Code(s): J18.9 - Pneumonia, unspecified organism Code(s): J18.9 - Pneumonia, unspecified organism Status: Acute (4) Postobstructive diuresis: Code(s): R35.89 - Other polyuria Status: Acute (5) Metabolic acidosis with respiratory alkalosis: Code(s): E87.20 - Acidosis, unspecified; E87.3 - Alkalosis Status: Acute (6) Hyperphosphatemia associated with renal failure: Code(s): E83.39 - Other disorders of phosphorus metabolism; N19 - Unspecified kidney failure Status: Acute (7) Hyperkalemia: Code(s): E87.5 - Hyperkalemia Status: Acute (8) Bladder stone: Code(s): N21.0 - Calculus in bladder Status: Acute (9) Diarrhea: Qualifiers: Diarrhea type: unspecified type Qualified Code(s): R19.7 - Diarrhea, unspecified Code(s): R19.7 - Diarrhea, unspecified Status: Acute (10) Nonadherence to medication: Code(s): Z91.148 - Patient's other noncompliance with medication regimen for other reason Status: Acute (11) Anxiety about treatment: Code(s): R45.89 - Other symptoms and signs involving emotional state Status: Acute Plan Hospital Course: Patient has what is likely acute on chronic bladder outlet obstruction due to BPH (plus or minus obstruction with bladder stone). His obstruction caused acute kidney injury. Ortega catheter was placed in the ER. Patient was intially admitted to the IMU. Urology was consulted for urinary obstruction He received a 2 L fluid bolus in the ER, but contined to have marked sinus tachycardia with heart rates between 120-140. Failed a void trial so catheter was replaced 07/20 by urology. 07/18 Chest x-ray was normal. 07/18 CT showed: 1. Grossly distended urinary bladder with urinary bladder stone. 2. Enlarged prostate. 3. Bilateral moderate hydroureter and hydronephrotic changes. 4. Tiny stone in the right kidney midpole. Bilateral renal cysts. 5. Cholelithiasis. 6. No evidence of appendicitis, diverticulitis or intestinal obstruction. 7. Ground glass appearance suggestive of pneumonia in the middle lobe and both lower lobes. Follow-up advised. 07/19 Renal US: 1. Approximately 2 cm bilateral renal cysts. Otherwise normal kidneys with resolution of prior bilateral hydronephrosis likely related to interval Ortega catheter placement with decompression of the previously distended bladder. Had HOLLIS on admission 525 with creatinine of 21, normalized with treatment of obstruction and with fluids. Potassium initially elevated at 5.8, now low and replacing. WBC elevated 22.5 on 07/17 has since normalized. UA had no wbc's but large RBCs on 07/17, likely due to outlet obstruction and not infection. Also treating pneumonia initially azithro, Flagyl, and ceftriaxone, now on Augmentin BID to 07/24. Blood sugars are quite elevated at 300. Hemoglobin A1c 8.4. Getting sliding scale only. No home meds are listed. Urinary obstruction --Ortega in place, needs follow-up with Urology HOLLIS Resolved, but electrolytes low. Metabolic acidosis resolved and creatinine normal, 0.85 Hypocalcemia Hypophosphatemia Hypokalemia Hypomagnesemia Electrolytes low, repleting frequently today. Patient anxious to go home. Likely related to renal recovery. Also initially had a poor appetite but is now eating well 07/22 s/p 2 g IV calcium, 20 millimoles K-Phos, Mag 3g 07/23 6 Grams calcium (2g x3) & calcium carbonate 1500 TID, Kphos 20mg & 500mg x2, Mag 4g IV & 400mg PO --Repeating labs tonight --Consider discussing follow up labs with nephrology prior to discharge. Patient does not have a PCP yet so not sure who will follow electrolytes Subjective Date/time seen: 07/24/24 09:20 Review of Systems Review of Systems: 12 systems were reviewed with pertinent positives and negatives per HPI. Except as documented in the HPI, all other systems were reviewed and are negative. Exam Narrative: General - Awake and alert. No acute distress Eyes - PERRLA, EOM intact ENT - No thrush, No erythema Neck - No noticeable or palpable swelling Lymph Nodes - No lymphadenopathy Cardiovascular - RRR no m/r/g, no JVD Lungs: Clear to auscultation, No wheezing, use of accessory muscles, no crackles Skin - Skin warm and dry, no wounds or rashes Abdomen - Normal bowel sounds, abdomen soft and nontender Extremities - No edema, cyanosis or clubbing Musculoskeletal - 5/5 strength, normal range of motion, no swollen or erythematous joints. Neurological ? Alert and oriented x 3, CN 2-12 grossly intact. Psych: Normal mood and affect Ortega catheter in place Const: Other: Mildly ill-appearing, well-developed well-nourished, appears stated age HENMT: Other: Mucous membranes are dry, no oral pharyngeal erythema, a few missing teeth in the upper jaw Eyes: Other: No conjunctival pallor, no scleral icterus Neck: Other: No JVD, no lymphadenopathy Resp: Other: Clear to auscultation bilaterally, no tachypnea Cardio: Other: Sinus tachycardia, 2 bilat the radial and pedal pulses, no murmur, no JVD GI: Other: Hyperactive bowel sounds, nontender, slightly distended : Other: Ortega catheter in place with pink-tinged urine present Skin: Other: No jaundice, no pallor, no petechiae Objective Data Vital Signs Vital Signs: Vital Signs - 24 hr 07/23/24 11:49 07/23/24 16:00 07/23/24 16:00 Temperature 96.1 F L 96.8 F L Pulse Rate 71 81 88 Respiratory Rate 16 16 Blood Pressure 144/87 H 132/95 H Pulse Oximetry 100 100 Oxygen Delivery Fraction of Inspired Oxygen 07/23/24 20:00 07/23/24 20:00 07/23/24 20:00 Temperature 98.2 F Pulse Rate 85 85 89 Respiratory Rate 18 18 Blood Pressure 145/85 H Pulse Oximetry 100 100 Oxygen Delivery Room Air Fraction of Inspired Oxygen 21 07/23/24 21:51 07/24/24 00:00 07/24/24 00:00 Temperature 98.2 F Pulse Rate 96 95 Respiratory Rate 20 Blood Pressure 124/77 Pulse Oximetry 99 100 Oxygen Delivery Room Air Fraction of Inspired Oxygen 07/24/24 04:00 07/24/24 04:00 07/24/24 08:00 Temperature 98.2 F Pulse Rate 76 84 Respiratory Rate 18 Blood Pressure 127/92 H Pulse Oximetry 98 Oxygen Delivery Room Air Fraction of Inspired Oxygen 07/24/24 08:00 Temperature Pulse Rate 119 H Respiratory Rate Blood Pressure Pulse Oximetry Oxygen Delivery Fraction of Inspired Oxygen Intake/Output Intake/Output: Intake & Output 07/21/24 07/22/24 07/23/24 07/24/24 23:59 23:59 23:59 23:59 Intake Total 3790 3106.6667 1280 550 Output Total 4050 4925 3775 2650 Igkgkwp -086 -1478.333 -2177 -6161 Meds/Results Medications: Active Medications Generic Name Dose Route Start Last Admin Trade Name Freq PRN Reason Stop Dose Admin Acetaminophen 650 mg 07/17/24 23:20 Acetaminophen 325 Mg Tablet PO Q4H PRN Mild Pain (1-3) or Fever Alprazolam 0.25 mg 07/18/24 01:50 07/19/24 21:11 Alprazolam (*Crx) 0.25 Mg Tablet PO 0.25 mg TID PRN Administration Anxiety Calcium Carbonate 2,000 mg 07/23/24 15:00 07/23/24 20:45 Calcium/Vitamin D 500 Mg/5 Mcg (200 I.U.) Tablet PO 2,000 mg 1000,1500,2100 DAPHNE Administration Dextrose 12.5 gm 07/18/24 02:51 Dextrose 50% 25 Gm/50 Ml Syringe IV PUSH PRN PRN Hypoglycemia Protocol Glucagon 1 mg 07/18/24 02:51 Glucagon For Inj 1 Mg Vial IM PRN PRN Hypoglycemia Protocol Glucose 15 gm 07/18/24 02:51 Glucose Oral Gel 15 Gm Of Glucse In 37.5 Gm Tube PO PRN PRN Hypoglycemia Protocol Heparin Sodium (Porcine) 5,000 units 07/18/24 09:00 07/24/24 08:17 Heparin Sodium 5,000 Units/Ml Vial SUB-Q Not Given Q12HR DAPHNE Dextrose 1,000 mls @ 100 mls/hr 07/18/24 02:51 Dextrose 5% 1,000 Ml IVPB PRN PRN Hypoglycemia Protocol Insulin Aspart 3 - 6 units 07/18/24 08:00 07/24/24 08:12 Insulin Aspart (*Bkc) 100 Units/Ml SUB-Q Not Given TIDWM [facility] Protocol Insulin Aspart 1 - 3 units 07/18/24 21:00 07/23/24 21:10 Insulin Aspart (*Bkc) 100 Units/Ml SUB-Q Not Given HS [facility] Protocol Loperamide HCl 2 mg 07/18/24 04:23 Loperamide Hcl 2 Mg Capsule PO PRN PRN Diarrhea Magnesium Oxide 400 mg 07/22/24 09:00 07/24/24 08:17 Magnesium Oxide 400 Mg Tablet PO 400 mg DAILY DAPHNE Administration Ondansetron HCl 4 mg 07/17/24 23:20 07/19/24 14:24 Ondansetron Inj 4 Mg/2 Ml Vial IV PUSH 4 mg Q4H PRN Administration Nausea Simethicone 80 mg 07/18/24 13:00 07/24/24 08:17 Simethicone 80 Mg Tab.Chew PO 80 mg QID DAPHNE Administration Sodium Phosphate 500 mg 07/23/24 09:00 07/24/24 08:17 Potassium Phos/Sodium Phos 250 Mg Tablet PO 07/27/24 08:59 500 mg BID DAPHNE Administration Tamsulosin HCl 0.4 mg 07/18/24 09:00 07/24/24 08:17 Tamsulosin Hcl 0.4 Mg Capsule PO 0.4 mg QAM DAPHNE Administration Radiology Results: ITS Impressions Abdomen/Pelvis CT 07/17/24 20:41 IMPRESSION: 1. Grossly distended urinary bladder with urinary bladder stone. 2. Enlarged prostate. 3. Bilateral moderate hydroureter and hydronephrotic changes. 4. Tiny stone in the right kidney midpole. Bilateral renal cysts. 5. Cholelithiasis. 6. No evidence of appendicitis, diverticulitis or intestinal obstruction. 7. Ground glass appearance suggestive of pneumonia in the middle lobe and both lower lobes. Follow-up advised. Chest X-Ray 07/18/24 06:27 IMPRESSION: No focal infiltrate or effusion. Renal Ultrasound 07/19/24 14:01 IMPRESSION: 1. Approximately 2 cm bilateral renal cysts. Otherwise normal kidneys with resolution of prior bilateral hydronephrosis likely related to interval Ortega catheter placement with decompression of the previously distended bladder. Labs Labs: Laboratory Results - last 24 hr 07/23/24 07/23/24 07/23/24 10:55 12:55 16:04 WBC RBC Hgb Hct MCV MCH MCHC RDW Plt Count MPV Immature Gran % (Auto) Neut % (Auto) Lymph % (Auto) [place] % (Auto) Eos % (Auto) Baso % (Auto) Lymph # (Auto) [place] # (Auto) Eos # (Auto) Baso # (Auto) Abs Immat Gran (auto) Absolute Neuts (auto) Absolute Nucleated RBC Nucleated RBC % Sodium 131 L Potassium 4.2 Chloride 100 Carbon Dioxide 23 Anion Gap 8 BUN 14 Creatinine 0.85 Estim Creat Clear Calc 83 Estimated GFR > 60 Glucose 180 H POC Capillary Glucose 160 H 168 H Calcium 7.3 L Phosphorus 2.3 L Magnesium 1.5 L Albumin 07/23/24 07/23/24 07/24/24 21:02 21:09 05:49 WBC 7.3 RBC 4.78 Hgb 13.2 L Hct 40.4 L MCV 84.5 MCH 27.6 MCHC 32.7 RDW 14.0 Plt Count 168 MPV 10.9 H Immature Gran % (Auto) 0.4 Neut % (Auto) 48.8 Lymph % (Auto) 32.9 [place] % (Auto) 14.5 H Eos % (Auto) 2.9 Baso % (Auto) 0.5 Lymph # (Auto) 2.41 [place] # (Auto) 1.1 H Eos # (Auto) 0.2 Baso # (Auto) 0.0 Abs Immat Gran (auto) 0.03 Absolute Neuts (auto) 3.6 Absolute Nucleated RBC 0.000 Nucleated RBC % 0.0 Sodium 131 L 134 L Potassium 3.9 4.5 Chloride 100 103 Carbon Dioxide 20 L 22 Anion Gap 11 9 BUN 17 16 Creatinine 0.91 0.96 Estim Creat Clear Calc 78 70 Estimated GFR > 60 > 60 Glucose 187 H 165 H POC Capillary Glucose 199 H Calcium 7.7 L 8.4 Phosphorus 2.4 L Magnesium 2.0 Albumin 4.0 07/24/24 07:46 WBC RBC Hgb Hct MCV MCH MCHC RDW Plt Count MPV Immature Gran % (Auto) Neut % (Auto) Lymph % (Auto) [place] % (Auto) Eos % (Auto) Baso % (Auto) Lymph # (Auto) [place] # (Auto) Eos # (Auto) Baso # (Auto) Abs Immat Gran (auto) Absolute Neuts (auto) Absolute Nucleated RBC Nucleated RBC % Sodium Potassium Chloride Carbon Dioxide Anion Gap BUN Creatinine Estim Creat Clear Calc Estimated GFR Glucose POC Capillary Glucose 183 H Calcium Phosphorus Magnesium Albumin Quality VTE Prophylaxis VTE prophylaxis: pharmacologic ordered (Heparin 5000 units subQ q.12 hours) Hospitalist MIPS Advance Care Plan I have confirmed that the patient's Advanced Care Plan is present, code status is documented, or surrogate decision maker is listed in patient medical record.: Yes Medication Reconciliation I have utilized all available resources to obtain, update and review the patients current medications (includes all prescriptions, OTC, herbals, cannabis, and nutritional supplements).: Yes
[2024-07-24] MEDS: CALCIUM/VITAMIN D 500 MG/5 MCG (200 I.U.) TABLET 2000 MG PO (09:44)
[2024-07-24 11:43] LABS: Glucose Point of Care 188 mg/dl (65-105)
[2024-07-24 12:00] VITALS: BP 131/80; PULSE 100; PULSE 118; RESP 20; TEMP 36.7; O2SAT 100
--- NOTE | 2024-07-24 18:18 | PM.DS ---
DS: Admitting Diagnosis Discharge Date 07/24/24 Admitting Diagnosis BPH DS: Discharge Diagnosis Discharge Diagnosis (1) Acute renal failure: Qualifiers: Acute renal failure type: unspecified Qualified Code(s): N17.9 - Acute kidney failure, unspecified Code(s): N17.9 - Acute kidney failure, unspecified Status: Acute (2) BPH with urinary obstruction: Code(s): N40.1 - Benign prostatic hyperplasia with lower urinary tract symptoms; N13.8 - Other obstructive and reflux uropathy Status: Acute (3) Bilateral pneumonia: Qualifiers: Lung location: lower lobe of lung Pneumonia type: due to unspecified organism Qualified Code(s): J18.9 - Pneumonia, unspecified organism Code(s): J18.9 - Pneumonia, unspecified organism Status: Acute (4) Postobstructive diuresis: Code(s): R35.89 - Other polyuria Status: Acute (5) Metabolic acidosis with respiratory alkalosis: Code(s): E87.20 - Acidosis, unspecified; E87.3 - Alkalosis Status: Acute (6) Hyperphosphatemia associated with renal failure: Code(s): E83.39 - Other disorders of phosphorus metabolism; N19 - Unspecified kidney failure Status: Acute (7) Hyperkalemia: Code(s): E87.5 - Hyperkalemia Status: Acute (8) Bladder stone: Code(s): N21.0 - Calculus in bladder Status: Acute (9) Diarrhea: Qualifiers: Diarrhea type: unspecified type Qualified Code(s): R19.7 - Diarrhea, unspecified Code(s): R19.7 - Diarrhea, unspecified Status: Acute (10) Nonadherence to medication: Code(s): Z91.148 - Patient's other noncompliance with medication regimen for other reason Status: Acute (11) Anxiety about treatment: Code(s): R45.89 - Other symptoms and signs involving emotional state Status: Acute Plan Hospital Course: Patient has what is likely acute on chronic bladder outlet obstruction due to BPH (plus or minus obstruction with bladder stone). His obstruction caused acute kidney injury. Ortega catheter was placed in the ER. Patient was intially admitted to the IMU. Urology was consulted for urinary obstruction He received a 2 L fluid bolus in the ER, but contined to have marked sinus tachycardia with heart rates between 120-140. Failed a void trial so catheter was replaced 07/20 by urology. 07/18 Chest x-ray was normal. 07/18 CT showed: 1. Grossly distended urinary bladder with urinary bladder stone. 2. Enlarged prostate. 3. Bilateral moderate hydroureter and hydronephrotic changes. 4. Tiny stone in the right kidney midpole. Bilateral renal cysts. 5. Cholelithiasis. 6. No evidence of appendicitis, diverticulitis or intestinal obstruction. 7. Ground glass appearance suggestive of pneumonia in the middle lobe and both lower lobes. Follow-up advised. 07/19 Renal US: 1. Approximately 2 cm bilateral renal cysts. Otherwise normal kidneys with resolution of prior bilateral hydronephrosis likely related to interval Ortega catheter placement with decompression of the previously distended bladder. Had HOLLIS on admission 525 with creatinine of 21, normalized with treatment of obstruction and with fluids. Potassium initially elevated at 5.8, now low and replacing. WBC elevated 22.5 on 07/17 has since normalized. UA had no wbc's but large RBCs on 07/17, likely due to outlet obstruction and not infection. Also treating pneumonia initially azithro, Flagyl, and ceftriaxone, now on Augmentin BID to 07/24. Blood sugars are quite elevated at 300. Hemoglobin A1c 8.4. Getting sliding scale only. No home meds are listed. Urinary obstruction --Ortega in place, needs follow-up with Urology HOLLIS Resolved, but electrolytes low. Metabolic acidosis resolved and creatinine normal, 0.85 Hypocalcemia Hypophosphatemia Hypokalemia Hypomagnesemia Electrolytes low, repleting frequently today. Patient anxious to go home. Likely related to renal recovery. Also initially had a poor appetite but is now eating well 07/22 s/p 2 g IV calcium, 20 millimoles K-Phos, Mag 3g 07/23 6 Grams calcium (2g x3) & calcium carbonate 1500 TID, Kphos 20mg & 500mg x2, Mag 4g IV & 400mg PO --Repeating labs tonight --Consider discussing follow up labs with nephrology prior to discharge. Patient does not have a PCP yet so not sure who will follow electrolytes DS: Summary Hospital Course Hospital Course: Patient is 64 y/o presented with urinary retention most likely 2/2 enlarge prostate and bladder stone causing obstructive and reflux uropathy resulting in HOLLIS with elevated upon arrival BUN/CR 211/21 and CO2 of 7 in metabolic acidosis, Ortega was placed in the ER and patient has been able to urinate patient is been hydrated and sodium bicarb is given and his BUN/Cr and CO2 have improved to 75/4.76 and 15 respectivley, patient is seen by admitting clerk and urologist further recommendation to follow, will continue to monitor. Of note patient also has a long history of diabetes but not following up with treatment. 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 And recommend outpatient aureus with the next few weeks to ensure resolution. I assumed care on 07/24/2024 the day of discharge Patient had a prolonged hospitalization due to electrolyte abnormalities. Patient is anxious to leave to home. Advised to perform CBC and CMP and discussed the resulted in 1 week with PCP. Advised about uncontrolled diabetes mellitus and advised to closely follow up with PCP and started treatment. On the day of discharge, the patient was seen and examined. Vital signs were stable. Physical exam were stable and labs were reviewed at length. Discharge instructions, medications, and follow-up appointments were discussed with the patient at length and all day questions were answered. ER warnings were given. Status at Discharge Cognitive/behavioral status at discharge: Stable Time Spent with Patient Time attestation: Total time spent providing and/or coordinating discharge services: 45 minute Exam Narrative: General - Awake and alert. No acute distress Eyes - PERRLA, EOM intact ENT - No thrush, No erythema Neck - No noticeable or palpable swelling Lymph Nodes - No lymphadenopathy Cardiovascular - RRR no m/r/g, no JVD Lungs: Clear to auscultation, No wheezing, use of accessory muscles, no crackles Skin - Skin warm and dry, no wounds or rashes Abdomen - Normal bowel sounds, abdomen soft and nontender Extremities - No edema, cyanosis or clubbing Musculoskeletal - 5/5 strength, normal range of motion, no swollen or erythematous joints. Neurological ? Alert and oriented x 3, CN 2-12 grossly intact. Psych: Normal mood and affect Ortega catheter in place Const: Other: Mildly ill-appearing, well-developed well-nourished, appears stated age HENMT: Other: Mucous membranes are dry, no oral pharyngeal erythema, a few missing teeth in the upper jaw Eyes: Other: No conjunctival pallor, no scleral icterus Neck: Other: No JVD, no lymphadenopathy Resp: Other: Clear to auscultation bilaterally, no tachypnea Cardio: Other: Sinus tachycardia, 2 bilat the radial and pedal pulses, no murmur, no JVD GI: Other: Hyperactive bowel sounds, nontender, slightly distended : Other: Ortega catheter in place with pink-tinged urine present Skin: Other: No jaundice, no pallor, no petechiae DS: Data Data Completed and Pending Labs on day of discharge: Labs from last 24 hours 07/24/24 07/24/24 07/24/24 11:35 07:46 05:49 WBC 7.3 RBC 4.78 Hgb 13.2 L Hct 40.4 L MCV 84.5 MCH 27.6 MCHC 32.7 RDW 14.0 Plt Count 168 MPV 10.9 H Immature Gran % (Auto) 0.4 Neut % (Auto) 48.8 Lymph % (Auto) 32.9 [place] % (Auto) 14.5 H Eos % (Auto) 2.9 Baso % (Auto) 0.5 Lymph # (Auto) 2.41 [place] # (Auto) 1.1 H Eos # (Auto) 0.2 Baso # (Auto) 0.0 Abs Immat Gran (auto) 0.03 Absolute Neuts (auto) 3.6 Absolute Nucleated RBC 0.000 Nucleated RBC % 0.0 Sodium 134 L Potassium 4.5 Chloride 103 Carbon Dioxide 22 Anion Gap 9 BUN 16 Creatinine 0.96 Estim Creat Clear Calc 70 Estimated GFR > 60 Glucose 165 H POC Capillary Glucose 188 H 183 H Calcium 8.4 Phosphorus 2.4 L Magnesium 2.0 Albumin 4.0 07/23/24 07/23/24 21:09 21:02 WBC RBC Hgb Hct MCV MCH MCHC RDW Plt Count MPV Immature Gran % (Auto) Neut % (Auto) Lymph % (Auto) [place] % (Auto) Eos % (Auto) Baso % (Auto) Lymph # (Auto) [place] # (Auto) Eos # (Auto) Baso # (Auto) Abs Immat Gran (auto) Absolute Neuts (auto) Absolute Nucleated RBC Nucleated RBC % Sodium 131 L Potassium 3.9 Chloride 100 Carbon Dioxide 20 L Anion Gap 11 BUN 17 Creatinine 0.91 Estim Creat Clear Calc 78 Estimated GFR > 60 Glucose 187 H POC Capillary Glucose 199 H Calcium 7.7 L Phosphorus Magnesium Albumin Discharge Plan Discharge Attending physician on discharge: Osiel Patterson Consulting providers: Donta López; Amber Bryant; Devin Rodriguez Discharging Clinician: Osiel Patterson Anticipated Discharge Date/Time: 07/24/24 13:24 Patient Disposition: Home Activity: as tolerated Diet: as tolerated and diabetic Discharge Instructions: Please follow up with Urology in a week Please follow the results of CBC and CMP with your PCP. Please follow up with your PCP for Diabetes ED precautions given Patient Instructions: Antibiotic Form, Acute Kidney Injury (DC), Ortega Catheter Placement and Care (DC), Hyperkalemia (DC), Pneumonia (DC), Urinary Leg Bag (GEN), Bladder Stones (DC) Patient Language: Vietnamese Stand Alone Forms: General Discharge Information, Work/School Release IP Follow-up/Referrals: Jose Maria Hernandez MD [Physician] - 2 Weeks Discharge Medications: New insulin aspart U-100 100 unit/mL (3 mL) insulin pen 1 sliding scale dose subcut USEASDIRECTD Qty: 15 12RF Rx Instructions: Sliding Scale: No insulin if blood sugar less than 200. 2 units for blood sugar 200-249, 4 units for 250-299, 6 units for 300-349, 8 units for 350-399 tamsulosin 0.4 mg Capsule 0.4 mg PO QAM Qty: 30 4RF magnesium oxide 400 mg (241.3 mg magnesium) Tablet 400 mg PO DAILY Qty: 30 0RF X-[id number]-Omggxgy 250 mg Tablet 2 tablet PO BID Qty: 30 0RF simethicone 80 mg Tablet,Chewable 80 mg PO QID Qty: 30 0RF calcium carbonate-vitamin D3 [Oyster Shell Calcium-Vit D3] 500 mg-5 mcg (200 unit) Tablet 4 tablet PO 1000,1500,2100 Qty: 30 0RF (DME) blood-glucose meter [OneTouch Verio Flex meter] Misc Qty: 1 0RF Rx Instructions: May substitute to in-stock meter and/or covered by insurance. Use As Directed (DME) OneTouch Verio test strips Strip Qty: 1 0RF Rx Instructions: May substitute to in-stock and/or covered by insurance strips. Use As Directed (DME) pen needle, diabetic 32 gauge x /32 Needle Qty: 1 5RF Rx Instructions: As Directed (DME) lancets [OneTouch Delica Plus Lancet] 30 gauge misc Qty: 1 0RF Rx Instructions: May substitute to in-stock and/or covered by insurance lancets. Use As Directed Other Ambulatory Orders: Complete Blood Count no Diff (Routine) Timeframe: 1 Week Location: Determined by Patient Ordered By: Osiel Patterson Comprehensive Metabolic Panel (Routine) Timeframe: 1 Week Location: Determined by Patient Ordered By: Osiel Patterson Date of admission: 07/17/24 23:20 Primary Care Provider: PHYSICIAN,[employer]LE[employer] ENGINEERING PROFESSOR Admitting Provider: Shante Winchester Attending physician on admission: Grisel Wong Condition: Stable
[2024-07-25 11:58] LABS: Ionized Calcium 3.7 mg/dL (4.7-5.5)
[2024-07-25 14:07] LABS: Calcium 5.8 mg/dL (8.4-10.2)
[2024-07-27 18:14] LABS: Legionella pneumophila Ag Ur NOT DETECTED
--- NOTE | 2024-08-01 16:05 | PCCDE ---
08/01/24 DM educator courtesy follow up call attempt - message including direct call back number provided.
== END 2024-07-24 14:20 | disposition home or self-care (01) | DRG 725 ==
LOC: ANHED 19:41 → ANHIMU 07-18 02:27 → ANH3MEDSUR 07-20 09:12 → ANHIMU 07-25 13:20
PROVIDERS: Emergency Medicine; Family Medicine; Internal Medicine Nephrology; Admitting Provider Internal Medicine; Emergency Provider Student in an Organized Health Care Education/Training Program; Visit Provider Nurse Practitioner Acute Care
DX: N40.1 Benign prostatic hyperplasia with lower urinary tract symptoms (principal); J18.9 Pneumonia, unspecified organism; N17.9 Acute kidney failure, unspecified; N13.4 Hydroureter; N13.8 Other obstructive and reflux uropathy; E87.20 Acidosis, unspecified; E87.3 Alkalosis; N13.30 Unspecified hydronephrosis; E87.5 Hyperkalemia; E83.39 Other disorders of phosphorus metabolism; E11.42 Type 2 diabetes mellitus with diabetic polyneuropathy; E11.610 Type 2 diabetes mellitus with diabetic neuropathic arthropathy; K80.20 Calculus of gallbladder without cholecystitis without obstruction; K42.9 Umbilical hernia without obstruction or gangrene; N21.0 Calculus in bladder; R35.89 Other polyuria; R19.7 Diarrhea, unspecified; R33.8 Other retention of urine; F41.9 Anxiety disorder, unspecified; Z20.822 Contact with and (suspected) exposure to COVID-19; Z91.148 Patient's other noncompliance with medication regimen for other reason; Z89.422 Acquired absence of other left toe(s)
CPT/HCPCS: 36415; 36600; 71045; 74176; 76775; 80048; 80053; 80069; 80074; 80307; 81001; 82274; 82306; 82330; 82550; 82805; 82948; 83036; 83605; 83690; 83735; 84100; 84443; 85018; 85025; 85027; 85055; 87040; 87449; 87493; 87637; 87899; 93005; 94640; 96361; 96365; 96375; 99285; A9270; J0456; J0612; J0613; J0696; J1644; J1815; J1836; J2060; J2405; J3475; J3480; J7030; J7040; J7050